=== PATIENT | male | born 1945 | race Caucasian/White ===

== ENCOUNTER 2019-11-20 10:46 | Inpatient (IN) | payer MEDICARE, OTHER, SELFPAY ==
[2019-11-20] VITALS (11 sets, daily range): BP systolic 80–129; BP diastolic 49–86; PULSE 70–130; RESP 16–27; TEMP 36.7–37.2; O2SAT 92–99; BMI 21.5
--- NOTE | 2019-11-20 11:20 | ED_ITS ---
HPI - SOB/Dyspnea General: Chief Complaint: Shortness of Breath/Dyspnea Stated Complaint: afib/sent from [facility] Time Seen by Provider: 11/20/19 10:59 History of Present Illness: HPI Narrative: 74-year-old male who is comes in his granddaughter to assist and he writes to communicate. He was seen earlier today at [facility] and found to be in A. fib with RVR this is evidently a new diagnosis for him they have not previously been told this he also has little bit of chest pressure accompanying he has no recent illnesses. He is not had any GI or symptoms no cough cold shortness of breath or fever. He has previously had multiple traumas and severely kyphotic. He has no current anticoagulation. He does have a severe mitral valve reflux but has not been pursuing surgical treatment they are afraid he would not tolerate the surgery. Associated symptoms: Deny abdominal pain, chest pain, fever(s), nausea, orthopnea or vomiting Review of Systems Const: Denies: fever(s), chills, body aches, change in appetite, fatigue or malaise ENMT: Denies: throat pain, ear or mastoid pain, nasal discharge or nasal congestion Card: Denies: chest pain, edema, dyspnea on exertion or orthopnea Resp: Denies: dyspnea, productive cough or non-productive cough GI: Denies: abdominal pain, nausea, vomiting, hematemesis, coffee ground emesis, diarrhea, constipation, bloating, hematochezia or melena : Denies: flank pain, dysuria, urinary frequency or urinary urgency Skin/Breast: Denies: rash or pruritus PFSH ED PFSH: Medical History (Updated 11/20/19 @ 15:45 by Juan Rice MD) CAD (coronary artery disease) History of CVA (cerebrovascular accident) Hypertension Mitral valve regurgitation Obstructive sleep apnea Pelvic fracture Pneumothorax Severe mitral regurgitation Thoracic spine fracture Surgical History (Updated 11/20/19 @ 15:44 by Juan Rice MD) History of back surgery Family History (Updated 11/20/19 @ 15:44 by Juan Rice MD) Other CAD (coronary artery disease) Social History Smoking and tobacco status: former smoker Physical Exam Const: COMMON NORMALS: no acute distress GENERAL APPEARANCE: cooperative and comfortable ORIENTATION/CONSCIOUSNESS: Yes awake, Yes oriented to person, Yes oriented to place and Yes oriented to time HENMT: COMMON NORMALS: normocephalic, atraumatic, external ears normal, EAC's normal, TM's normal bilaterally, Normal nasal mucous membranes and turbinates present, moist oral mucous membranes and oropharynx normal; hearing grossly not normal bilaterally HEAD & SCALP: normocephalic and atraumatic NOSE: Normal nasal mucous membranes and turbinates present EXTERNAL EAR: Yes external ears normal EXTERNAL AUDITORY CANAL: EAC's normal TYMPANIC MEMBRANE: TM's normal bilaterally Eye: COMMON NORMALS: Equal, round and reactive pupils present, EOMs intact bilaterally, conjunctivae normal and no scleral icterus CONJUNCTIVA: Yes conjunctivae normal PUPIL: Yes Equal, round and reactive pupils present Neck/C-Spine: COMMON NORMALS: full ROM, no lymphadenopathy and supple Lymph: LYMPHATIC: no lymphadenopathy noted and no lymphedema noted Resp: COMMON NORMALS: normal respiratory effort, No retractions, No use of accessory muscles and clear to auscultation bilaterally AUSCULTATION: clear to auscultation bilaterally Cardio: RATE: tachycardic RHYTHM: abnormal rhythm irregularly irregular OTHER: Grade 3/6 mitral regurg murmur heard at the left anterior axillary line GI: COMMON NORMALS: Soft to palpation and No hepatosplenomegaly present AUSCULTATION: Yes normoactive bowel sounds PALPATION: Yes Soft to palpation, No Tenderness to palpation present (GI), No Guarding due to palpation present (GI) and Yes No hepatosplenomegaly present Extremity: COMMON NORMALS: normal to inspection, capillary refill normal, no clubbing, cyanosis or edema, no calf tenderness and no pedal edema Neuro: SENSORIUM/ORIENTATION: Yes oriented to person, Yes oriented to place and Yes oriented to time Skin: COMMON NORMALS: no rashes or lesions noted GENERAL SKIN EXAM: no rashes or lesions noted Course Vital Signs: Vital signs: Vital Signs Temperature 97.9 F 11/21/19 10:44 Pulse Rate 108 H 11/21/19 10:44 Respiratory Rate 30 H 11/21/19 10:44 Blood Pressure 94/61 11/21/19 10:44 Pulse Oximetry 92 11/21/19 10:44 MDM - SOB/Dyspnea MDM Narrative: Medical decision making narrative: Patient has new A. fib with RVR previously undiagnosed. He is gotten his rate controlled with a bolus of Cardizem and a Cardizem drip will need to be admitted for evaluation consideration of anticoagulation and transition to oral rate control. Discussed Dr. Trinh he agrees we will go ahead and place him in CSU Lab Data: Labs: Lab Results 11/20/19 11/20/19 11/20/19 Range/Units 11:00 11:00 11:00 WBC 7.6 (4.0-10.0) 10^3/ uL RBC 4.03 L (4.1-5.3) 10^6/u L Hgb 12.7 (11.7-16.6) g/dL Hct 38.7 L (42.0-52.0) % MCV 96.0 H (80-94) fL MCH 31.5 (28.0-34.0) pg MCHC 32.8 (30.0-36.0) g/dL RDW 14.4 (12.1-15.1) % Plt Count 179 (130-400) 10^3/c mm MPV 11.3 H (7.4-10.4) fL Neut % (Auto) 78.6 % Lymph % (Auto) 11.0 % [place] % (Auto) 9.9 % Eos % (Auto) 0.1 % Baso % (Auto) 0.1 % Neut # (Auto) 6.0 (1.8-7.7) 10^3/u L Lymph # (Auto) 0.8 (0.8-4.8) 10^3/u L [place] # (Auto) 0.8 (0.2-0.9) 10^3/u L Eos # (Auto) 0.0 (0.0-0.8) 10^3/u L Baso # (Auto) 0.0 (0.0-0.1) 10^3/u L Nucleated RBC % (a uto) 0 % Nucleated RBCs # 0.0 /100WBC Sodium 132 L (136-145) mmol/L Potassium 4.6 (3.5-5.1) mmol/L Chloride 91 L (98-107) mmol/L Carbon Dioxide 27 (22-29) mmol/L Anion Gap 18.6 (5-19) BUN 10 (8-23) mg/dL Creatinine 0.6 L (0.7-1.2) mg/dL Glucose 170 H (65-115) mg/dL Estimat Average Gl ucose Hemoglobin A1c (4.0-6.0) % Calculated Osmolal ity 274 L (285-295) mOsm/k g Calcium 9.8 (8.5-10.5) mg/dL Total Bilirubin 0.5 (0.15-1.2) mg/dL AST 15 (0-40) U/L ALT 14 (0-41) U/L Alkaline Phosphata se 135 H (40-130) IU/L Troponin T Baselin e 18 H (0-15) ng/L Troponin T 120 Min [place] (0-15) ng/L Delta Troponin T (0-10) ABS# NT-Pro-B Natriuret Pep 3425 H (0-450) pg/mL Total Protein 6.7 (6.6-8.7) g/dL Albumin 4.1 (3.5-5.2) g/dL Globulin 2.6 (1.3-4.6) g/dL TSH (0.27-4.20) uIU/ mL Urine Color (Yellow) Urine Appearance (CLEAR) Urine pH (5-7) Ur Specific Gravit y (1.005-1.030) Urine Protein (Negative) Urine Glucose (UA) (Normal) Urine Ketones (Negative) Urine Blood (Negative) Urine Nitrate (Negative) Urine Bilirubin (NEGATIVE) Urine Urobilinogen (Negative) mg/dL Ur Leukocyte Heidy ase (Negative) 11/20/19 11/20/19 11/20/19 Range/Units 11:00 11:00 12:10 WBC (4.0-10.0) 10^3/ uL RBC (4.1-5.3) 10^6/u L Hgb (11.7-16.6) g/dL Hct (42.0-52.0) % MCV (80-94) fL MCH (28.0-34.0) pg MCHC (30.0-36.0) g/dL RDW (12.1-15.1) % Plt Count (130-400) 10^3/c mm MPV (7.4-10.4) fL Neut % (Auto) % Lymph % (Auto) % [place] % (Auto) % Eos % (Auto) % Baso % (Auto) % Neut # (Auto) (1.8-7.7) 10^3/u L Lymph # (Auto) (0.8-4.8) 10^3/u L [place] # (Auto) (0.2-0.9) 10^3/u L Eos # (Auto) (0.0-0.8) 10^3/u L Baso # (Auto) (0.0-0.1) 10^3/u L Nucleated RBC % (a uto) % Nucleated RBCs # /100WBC Sodium (136-145) mmol/L Potassium (3.5-5.1) mmol/L Chloride (98-107) mmol/L Carbon Dioxide (22-29) mmol/L Anion Gap (5-19) BUN (8-23) mg/dL Creatinine (0.7-1.2) mg/dL Glucose (65-115) mg/dL Estimat Average Gl ucose 126 Hemoglobin A1c 6.0 (4.0-6.0) % Calculated Osmolal ity (285-295) mOsm/k g Calcium (8.5-10.5) mg/dL Total Bilirubin (0.15-1.2) mg/dL AST (0-40) U/L ALT (0-41) U/L Alkaline Phosphata se (40-130) IU/L Troponin T Baselin e (0-15) ng/L Troponin T 120 Min [place] (0-15) ng/L Delta Troponin T (0-10) ABS# NT-Pro-B Natriuret Pep (0-450) pg/mL Total Protein (6.6-8.7) g/dL Albumin (3.5-5.2) g/dL Globulin (1.3-4.6) g/dL TSH 3.16 (0.27-4.20) uIU/ mL Urine Color Yellow (Yellow) Urine Appearance Clear (CLEAR) Urine pH 5 (5-7) Ur Specific Gravit y 1.015 (1.005-1.030) Urine Protein Neg (Negative) Urine Glucose (UA) Norm (Normal) Urine Ketones Negative (Negative) Urine Blood Neg (Negative) Urine Nitrate Negative (Negative) Urine Bilirubin Neg (NEGATIVE) Urine Urobilinogen 1 H (Negative) mg/dL Ur Leukocyte Heidy ase Negative (Negative) 11/20/19 Range/Units 13:03 WBC (4.0-10.0) 10^3/ uL RBC (4.1-5.3) 10^6/u L Hgb (11.7-16.6) g/dL Hct (42.0-52.0) % MCV (80-94) fL MCH (28.0-34.0) pg MCHC (30.0-36.0) g/dL RDW (12.1-15.1) % Plt Count (130-400) 10^3/c mm MPV (7.4-10.4) fL Neut % (Auto) % Lymph % (Auto) % [place] % (Auto) % Eos % (Auto) % Baso % (Auto) % Neut # (Auto) (1.8-7.7) 10^3/u L Lymph # (Auto) (0.8-4.8) 10^3/u L [place] # (Auto) (0.2-0.9) 10^3/u L Eos # (Auto) (0.0-0.8) 10^3/u L Baso # (Auto) (0.0-0.1) 10^3/u L Nucleated RBC % (a uto) % Nucleated RBCs # /100WBC Sodium (136-145) mmol/L Potassium (3.5-5.1) mmol/L Chloride (98-107) mmol/L Carbon Dioxide (22-29) mmol/L Anion Gap (5-19) BUN (8-23) mg/dL Creatinine (0.7-1.2) mg/dL Glucose (65-115) mg/dL Estimat Average Gl ucose Hemoglobin A1c (4.0-6.0) % Calculated Osmolal ity (285-295) mOsm/k g Calcium (8.5-10.5) mg/dL Total Bilirubin (0.15-1.2) mg/dL AST (0-40) U/L ALT (0-41) U/L Alkaline Phosphata se (40-130) IU/L Troponin T Baselin e (0-15) ng/L Troponin T 120 Min [place] 15.30 H (0-15) ng/L Delta Troponin T -2.70 L (0-10) ABS# NT-Pro-B Natriuret Pep (0-450) pg/mL Total Protein (6.6-8.7) g/dL Albumin (3.5-5.2) g/dL Globulin (1.3-4.6) g/dL TSH (0.27-4.20) uIU/ mL Urine Color (Yellow) Urine Appearance (CLEAR) Urine pH (5-7) Ur Specific Gravit y (1.005-1.030) Urine Protein (Negative) Urine Glucose (UA) (Normal) Urine Ketones (Negative) Urine Blood (Negative) Urine Nitrate (Negative) Urine Bilirubin (NEGATIVE) Urine Urobilinogen (Negative) mg/dL Ur Leukocyte Heidy ase (Negative) Discharge Plan Discharge Patient Disposition: Admitted As Inpatient Admit Provider: Juan Rice Discharge Date/Time: 11/20/19 15:27 Coding Level of Care Code ED [employer] Specialist for Chg Fwd Exam Comprehensive
--- NOTE | 2019-11-20 11:25 | XRR_ITS ---
PROCEDURE INFORMATION: Exam: XR Chest, 1 View Exam date and time: 11/20/2019 11:40 AM Age: 74 years old Clinical indication: Cough and dyspnea; Additional info: Dyspnea/cough TECHNIQUE: Imaging protocol: XR of the chest Views: 1 view. COMPARISON: No relevant prior studies available. FINDINGS: Lungs: No significant airspace disease. Pleural space: No significant pleural effusion. Heart/Mediastinum: Cardiomegaly. Vasculature: Ectasia of the thoracic aorta. Diaphragm: Asymmetric elevation of the right hemidiaphragm. Colonic interposition. Bones/joints: Severe osteopenia. Old left rib fractures. Incompletely visualized surgical hardware in the lumbar spine. Degenerative change. XR/XR chest 1V portable [id number] IMPRESSION: Cardiomegaly, without significant airspace or pleural disease.
--- NOTE | 2019-11-20 11:25 | ECG_ITS ---
Measurements Intervals [place] Rate: 138 P: LA: 0 QRS: -40 QRSD: 102 T: 46 QT: 292 QTc: 444 ATRIAL FIBRILLATION WITH RAPID VENTRICULAR RESPONSE LEFT AXIS DEVIATION [QRS AXIS < -30] PATTERN CONSISTENT WITH PULMONARY DISEASE MODERATE VOLTAGE CRITERIA FOR LVH, CONSIDER NORMAL VARIANT [MEETS CRITERIA IN ONE ONE OF: R(aVL), S(V1), R(V5), R(V5/V6)+S(V1)] NONSPECIFIC ST & T-WAVE ABNORMALITY Compared to ECG 06/09/2019 11:43:24 T-wave abnormality now present Sinus rhythm no longer present Electronically Signed On 11-20-2019 19:35:00 CDT by Charley Salazar M.D. [id number]
[2019-11-20 11:35] LABS: Basophils % 0.1 %; Eosinophils % 0.1 %; Hematocrit 38.7 % (42.0-52.0); Hemoglobin 12.7 g/dL (11.7-16.6); Lymphocytes # 0.8 10^3/uL (0.8-4.8); Mean Corpuscular HGB Conc 32.8 g/dL (30.0-36.0); Mean Corpuscular Hemoglobin 31.5 pg (28.0-34.0); Mean Platelet Volume 11.3 fL (7.4-10.4); Monocytes # 0.8 10^3/uL (0.2-0.9); Monocytes % 9.9 %; Neutrophils % 78.6 %; Nucleated Red Blood Cells % 0 %; Platelet Count 179 10^3/cmm (130-400); Red Blood Count 4.03 10^6/uL (4.1-5.3); Red Cell Distribution Width 14.4 % (12.1-15.1); White Blood Count 7.6 10^3/uL (4.0-10.0)
[2019-11-20 11:49] LABS: Troponin(5th) Baseline 18 ng/L (0-15)
[2019-11-20 11:58] LABS: Alanine Aminotransferase 14 U/L (0-41); Albumin Level 4.1 g/dL (3.5-5.2); Alkaline Phosphatase 135 IU/L (40-130); Anion Gap 18.6 (5-19); Aspartate Amino Transferase 15 U/L (0-40); Blood Urea Nitrogen 10 mg/dL (8-23); Calcium 9.8 mg/dL (8.5-10.5); Carbon Dioxide 27 mmol/L (22-29); Chloride 91 mmol/L (98-107); Globulin 2.6 g/dL (1.3-4.6); Glucose 170 mg/dL (65-115); NT Pro B Type Natriuretic Pept 3425 pg/mL (0-450); Osmolality Calculated 274 mOsm/kg (285-295); Potassium 4.6 mmol/L (3.5-5.1); Sodium 132 mmol/L (136-145); Total Bilirubin 0.5 mg/dL (0.15-1.2); Total Protein 6.7 g/dL (6.6-8.7)
[2019-11-20 12:35] LABS: Add Urine Microscopic? NO
[2019-11-20 12:38] LABS: Bilirubin Urine Neg (NEGATIVE); Blood Urine Neg (Negative); Glucose Urine UA Norm (Normal); Ketones Urine Negative (Negative); Leukocyte Esterase Urine Negative (Negative); Nitrate Urine Negative (Negative); Protein Urine Neg (Negative); Specific Gravity, Urine 1.015 (1.005-1.030); Urine Appearance Clear (CLEAR); Urine Color Yellow (Yellow); Urobilinogen Urine 1 mg/dL (Negative); pH Urine 5 (5-7)
--- NOTE | 2019-11-20 13:25 | ECG_ITS ---
Measurements Intervals [place] Rate: 104 P: SD: 0 QRS: -35 QRSD: 103 T: 11 QT: 351 QTc: 462 ATRIAL FIBRILLATION WITH RAPID VENTRICULAR RESPONSE LEFT AXIS DEVIATION [QRS AXIS < -30] MODERATE VOLTAGE CRITERIA FOR LVH, CONSIDER NORMAL VARIANT [MEETS CRITERIA IN ONE OF: R(aVL), S(V1), R(V5), R(V5/V6)+S(V1)] Compared to ECG 06/09/2019 11:43:24 Sinus rhythm no longer present Electronically Signed On 11-20-2019 19:37:35 CDT by Chalrey Salazar M.D. [id number]
--- NOTE | 2019-11-20 15:34 | PM.HP ---
Providers/Chief Complaint Admitting Physician: Juan Rice MD Primary Care Provider: Joss Huddleston MD Chief Complaint: afib/sent from [facility] History of Present Illness Parminder العراقي is a 74 year old male with a past medical history of deafness, severe mitral regurg, history of CVA, hypertension, CAD, hyperlipidemia, GERD, who presents to [facility] due to complaints of shortness of breath and chest pain, and was sent over from [facility] due to concerns for A. fib with RVR Due to severe deafness, communication was difficult, and was mostly obtained by using a drawing board, and obtained by granddaughter at bedside. According to granddaughter, [place], is fairly dependent on family for activities of daily living, needs assistance with activities of daily living, for the last few weeks patient has been feeling more short of breath, shortness of breath with exertio annual rest, and substernal chest pain. No bilateral lower extremity edema, no dizziness, no recent falls, according to granddaughter Dr. Salazar has ordered metoprolol 25 twice daily, but family had not given it to him as they were unsure of why he was now on this medication. Review of Systems Const: Denies: fever(s), chills, fatigue or malaise Eyes: Denies: change in vision or blurry vision ENMT: Denies: nasal congestion Card: Reports: chest pain and palpitations Resp: Reports: dyspnea; Denies: productive cough, non-productive cough or wheezing GI: Denies: abdominal pain, nausea, vomiting, hematemesis, diarrhea, constipation, hematochezia or melena : Denies: flank pain, difficulty urinating, dysuria or urinary frequency Musc: Denies: neck pain or back pain Skin/Breast: Denies: rash Neuro: Denies: headache(s), dizziness or vertigo Psych: Denies: anxiety or depression Endo: Denies: polyuria or polydipsia Medications/Allergies Home Medications Medication Instructions Recorded Confirmed Last Taken Type isosorbide mononitrate 10 mg tablet 10 mg PO BID 90 Days #180 tab 09/18/19 11/20/19 11/20/19 Rx metoprolol tartrate 25 mg tablet 25 mg PO BID 90 Days #180 tab 09/18/19 11/20/19 Unknown Rx aspirin 81 mg PO DAILY 11/20/19 11/20/19 11/20/19 History baclofen 10 mg PO TID PRN 11/20/19 11/20/19 11/20/19 History budesonide-formoterol [Symbicort] 2 puff INHALATION BID 11/20/19 11/20/19 11/20/19 History cetirizine 10 mg PO DAILY 11/20/19 11/20/19 11/20/19 History dicyclomine 20 mg PO QID 11/20/19 11/20/19 11/20/19 History diltiazem HCl 180 mg PO DAILY 11/20/19 11/20/19 11/20/19 History docusate sodium [Colace] 100 mg PO BID 11/20/19 11/20/19 11/20/19 History furosemide 40 mg PO DAILY 11/20/19 11/20/19 11/20/19 History gabapentin 300 mg PO BID 11/20/19 11/20/19 11/20/19 History hydromorphone 4 mg PO TID PRN 11/20/19 11/20/19 11/20/19 History linaclotide [Linzess] 145 mcg PO DAILY 11/20/19 11/20/19 11/20/19 History montelukast 10 mg PO DAILY 11/20/19 11/20/19 11/20/19 History pantoprazole 40 mg PO BID 11/20/19 11/20/19 11/20/19 History potassium chloride 20 meq PO DAILY 11/20/19 11/20/19 11/20/19 History pravastatin 80 mg PO DAILY 11/20/19 11/20/19 11/19/19 History sucralfate 1 g PO QID 11/20/19 11/20/19 11/20/19 History tamsulosin 0.8 mg PO DAILY 11/20/19 11/20/19 11/20/19 History trazodone 150 mg PO BEDTIME 11/20/19 11/20/19 11/19/19 History Allergies Allergy/AdvReac Type Severity Reaction Status Date / Time meperidine [From Demerol] Allergy Unknown Verified 11/20/19 10:56 PFSH Acute PFSH: Medical History (Updated 11/20/19 @ 15:45 by Juan Rice MD) CAD (coronary artery disease) History of CVA (cerebrovascular accident) Hypertension Mitral valve regurgitation Obstructive sleep apnea Pelvic fracture Pneumothorax Severe mitral regurgitation Thoracic spine fracture Surgical History (Updated 11/20/19 @ 15:44 by Juan Rice MD) History of back surgery Family History (Updated 11/20/19 @ 15:44 by Juan Rice MD) Other CAD (coronary artery disease) Social History Smoking and tobacco status: former smoker Vitals/I&O/Wt Last Vital Signs Temp 98.1 F 11/20/19 10:50 Pulse 89 11/20/19 15:26 Resp 16 11/20/19 15:26 BP 124/81 11/20/19 15:26 Pulse Ox 99 11/20/19 15:26 Weight last 48 hrs Weight 68.039 kg Physical Exam Const: COMMON NORMALS: no acute distress and patient oriented x3 GENERAL APPEARANCE: cooperative and comfortable HENMT: COMMON NORMALS: normocephalic HEAD & SCALP: normocephalic Eye: COMMON NORMALS: Equal, round and reactive pupils present and EOMs intact bilaterally GENERAL EYE: appearance normal, both eyes and all related structures Neck/C-Spine: COMMON NORMALS: full ROM, no lymphadenopathy and no JVD Lymph: LYMPHATIC: no lymphadenopathy noted Resp: COMMON NORMALS: normal respiratory effort, No retractions, No use of accessory muscles and clear to auscultation bilaterally AUSCULTATION: clear to auscultation bilaterally Cardio: COMMON NORMALS: no JVD, regular rate, S1 normal heart sound present, S2 normal heart sound present, No gallops present (Cardio), No clicks present (Cardio) and No murmurs present (Cardio) RATE: tachycardic RHYTHM: abnormal rhythm HEART SOUNDS: S1 normal heart sound present and S2 normal heart sound present GI: COMMON NORMALS: Normal to inspection, nondistended, normoactive bowel sounds present, Soft to palpation, non-tender and No hepatosplenomegaly present PALPATION: Yes Soft to palpation and Yes No hepatosplenomegaly present Extremity: COMMON NORMALS: normal to inspection, full ROM and no pedal edema Neuro: COMMON NORMALS: patient oriented x3, moves all extremities and no focal motor deficits Data : 11/20/19 11:00 11/20/19 11:00 A&P Assessment and plan (1) Atrial fibrillation with RVR: -Heart rates 130s to 140s on admission, on Cardizem drip, currently heart rate 90s to 100, atrial fibrillation, currently doing well -BNP 3000 -Troponin mildly elevated -Currently doing well, no chest pain, no shortness of breath Plan: -We will admit to CSU -Continue telemetry monitoring -Monitor troponins, monitor EKGs, monitor for chest pain -Stop Cardizem, transition to metoprolol 50 twice daily -Continue home diltiazem 180 mg p.o. daily -We will obtain a cardiac echocardiogram, TSH, magnesium -Start Eliquis 5 mg twice daily -Monitor hemoglobin closely Status: Acute (2) Hypertension: Status: Acute (3) Severe mitral regurgitation: Status: Acute (4) Obstructive sleep apnea: Status: Acute (5) History of CVA (cerebrovascular accident): Status: Acute (6) CAD (coronary artery disease): Status: Acute Attestations Medical Necessity Statement*: Requires hospitalization, outpatient with observation, for A. fib with RVR Coding Level of Care Code Acute Marker Hand for Chg Fwd Diagnoses Atrial fibrillation with RVR I48.91 Hypertension I10 Severe mitral regurgitation I34.0 Obstructive sleep apnea G47.33 History of CVA (cerebrovascular accident) Z86.73 CAD (coronary artery disease) I25.10
--- NOTE | 2019-11-20 16:37 | PC.NURSE ---
admitted into room 101 from er via stretcher.report received.pt is deaf.he reads lips and has erasable board with marker at bedside.pt reads very well.on cardizem drip at 10 mg/hr afib at rate of 90's- 110 on monitor.bp stable.denies pain at present.oriented to room environment.instructed to notify staff for any sob,pain..or for any concerns at all.pt verb understanding of instructions.
[2019-11-20 17:12] LABS: Estmated Average Glucose 126
[2019-11-20 17:34] LABS: Troponin 5 6HR 16.34 ng/L (0-15)
[2019-11-20 17:42] LABS: Troponin 5 6HR Delta -1.66 ng/L (0-12)
[2019-11-20 17:44] LABS: Thyroid Stimulating Hormone 3.16 uIU/mL (0.27-4.20)
[2019-11-20] MEDS: sucralfate 1 gm Tablet PO ×2 (18:18→21:51)
[2019-11-20] MEDS: docusate sodium 100 mg Capsule PO (18:18)
[2019-11-20] MEDS: gabapentin 300 mg Capsule PO (18:18)
[2019-11-20] MEDS: dicyclomine 20 mg Tablet PO ×2 (18:18→21:51)
[2019-11-20] MEDS: pantoprazole DR 40 mg Tablet PO (18:18)
[2019-11-20] MEDS: metoprolol tartrate 50 mg Tablet PO (18:19)
[2019-11-20] MEDS: isosorbide mononitrate 20 mg Tablet 10 MG PO (18:19)
[2019-11-20] MEDS: apixaban 5 mg Tablet PO (18:19)
[2019-11-20 19:33] LABS: Magnesium 1.9 mg/dL (1.7-2.3)
--- NOTE | 2019-11-20 20:21 | PC.NURSE ---
Entered pt's room to do shift assessment and VS. HR 60-70's. BP 80/49. Cardizem IV decreased to 5mg/hr. As I was assessing him his HR went down to 44. Cardizem turned off. Pt states he does not feel dizzy, lightheaded or bad in anyway, just tired. HR now 71. BP 90/60. Will continue to monitor closely.
--- NOTE | 2019-11-20 22:11 | PC.NURSE ---
Notified Dr. Jeffery of pt's ongoning hypotension. Orders received to hold hs dose of trazodone tonight.
[2019-11-21] VITALS (18 sets, daily range): BP systolic 85–134; BP diastolic 55–95; PULSE 74–109; RESP 14–31; TEMP 36.6–37.3; O2SAT 92–96
[2019-11-21 04:48] LABS: Basophils % 0.5 %; Eosinophils # 0.1 10^3/uL (0.0-0.8); Eosinophils % 1.7 %; Hematocrit 32.9 % (42.0-52.0); Hemoglobin 11.3 g/dL (11.7-16.6); Lymphocytes # 1.4 10^3/uL (0.8-4.8); Lymphocytes % 22.9 %; Mean Corpuscular HGB Conc 34.3 g/dL (30.0-36.0); Mean Corpuscular Hemoglobin 33.2 pg (28.0-34.0); Mean Corpuscular Volume 96.8 fL (80-94); Mean Platelet Volume 10.5 fL (7.4-10.4); Monocytes # 0.8 10^3/uL (0.2-0.9); Monocytes % 13.6 %; Neutrophils # 3.6 10^3/uL (1.8-7.7); Neutrophils % 60.8 %; Nucleated Red Blood Cells % 0 %; Platelet Count 154 10^3/cmm (130-400); Red Cell Distribution Width 14.4 % (12.1-15.1); White Blood Count 5.9 10^3/uL (4.0-10.0)
[2019-11-21 04:58] LABS: Partial Thromboplastin Time 35.7 SECONDS (23.9-36.7)
[2019-11-21 05:06] LABS: Alanine Aminotransferase 20 U/L (0-41); Albumin Level 3.5 g/dL (3.5-5.2); Alkaline Phosphatase 106 IU/L (40-130); Anion Gap 13.2 (5-19); Aspartate Amino Transferase 20 U/L (0-40); Blood Urea Nitrogen 9 mg/dL (8-23); Calcium 9.8 mg/dL (8.5-10.5); Carbon Dioxide 30 mmol/L (22-29); Chloride 96 mmol/L (98-107); Globulin 2.3 g/dL (1.3-4.6); Glucose 105 mg/dL (65-115); Osmolality Calculated 276 mOsm/kg (285-295); Potassium 4.2 mmol/L (3.5-5.1); Sodium 135 mmol/L (136-145); Total Bilirubin 0.6 mg/dL (0.15-1.2); Total Protein 5.8 g/dL (6.6-8.7)
[2019-11-21 05:09] LABS: INR 1.17 (0.8-1.2)
[2019-11-21 05:12] LABS: Chol HDL Ratio 2.24 mg/dL (1.0-5.00); Cholesterol 130 mg/dL (0-200); HDL Cholesterol 58 mg/dL (60-100); LDL Cholesterol Calculated 61 mg/dL (50-129); LDL HDL Ratio 1.05 RATIO (0.00-3.22); Magnesium 1.8 mg/dL (1.7-2.3); Phosphorus 3.5 mg/dL (2.5-4.5); Triglycerides 55 mg/dL (0-150)
--- NOTE | 2019-11-21 06:38 | PC.NURSE ---
Notified Dr. Jeffery of HR staying 105-120. BP 125/93. Orders received to give po cardizem early.
--- NOTE | 2019-11-21 07:00 | USCV_ITS ---
Parminder العراقي Age: 74 Gender: M : 1945 Exam Date: 11/21/2019 05:23 Ordering Phys: Juan Rice MD Technologist: Loan Maurer Exam Location: [facility] [place] Indication: SEVERE MR SOB AFIB BP: 188 / 81 HR: 109 Rhythm: Atrial fibrillation Technical Quality: Adequate MEASUREMENTS (Male / Female) Normal Values 2D ECHO LV Diastolic Diameter PLAX 4.3 cm 4.2 - 5.9 / 3.9 - 5.3 cm LV Systolic Diameter PLAX 3.1 cm LV Chamber Size 4.0 cm IVS Diastolic Thickness 1.2 cm 0.6 - 1.0 / 0.6 - 0.9 cm IVS Systolic Thickness 1.4 cm LVPW Diastolic Thickness 1.1 cm 0.6 - 1.0 / 0.6 - 0.9 cm LVPW Systolic Thickness 1.3 cm RV Chamber Size 3.6 cm LVOT Diameter 2.0 cm LV Ejection Fraction 2D Teich 54.1 % LV Ejection Fraction MOD 2C 58.5 % LV Ejection Fraction 2C AL 59.9 % LA Diameter 5.6 cm LA Width 4.9 cm LA Height 5.9 cm RA Width 4.0 cm RA Height 6.3 cm Aorta at Sinotubular Diameter 4.1 cm M-MODE LV Diastolic Diameter MM 6.9 cm 4.2 - 5.9 / 3.9 - 5.3 cm LV Systolic Diameter MM 5.2 cm LV Ejection Fraction MM Teich 47.0 % IVS Diastolic Thickness MM 1.2 cm 0.6 - 1.0 / 0.6 - 0.9 cm IVS Systolic Thickness MM 1.4 cm LVPW Diastolic Thickness MM 1.6 cm 0.6 - 1.0 / 0.6 - 0.9 cm LVPW Systolic Thickness MM 1.8 cm RV Diastolic Diameter MM 0.9 cm Aortic Annulus Diameter 3.3 cm LA Ao Ratio MM 1.7 MV E Point Septal Separation 1.0 cm DOPPLER AV Peak Velocity 225.0 cm/s LVOT Peak Velocity 80.0 cm/s AV Area Cont Eq vti 1.5 cm squared AV Area Cont Eq pk 1.2 cm squared MV Area PHT 3.1 cm squared MV E' Velocity 8.0 cm/s Mitral E to MV E' Ratio 18.1 Mitral E to LV E' Lateral Ratio 19.7 Mitral E to LV E' Septal Ratio 16.7 TR Peak Velocity 24.0 cm/s TR Peak Gradient 0.2 mmHg TR Mean Velocity 245.0 cm/s TR Mean Gradient 26.3 mmHg TR Velocity Time Integral 104.1 cm TV Peak E Velocity 61.0 cm/s Right Atrial Pressure 15.0 mmHg Pulmonary Artery Systolic Pressu 15.2 mmHg PV Peak Velocity 66.0 cm/s RV Acceleration Time 0.1 s RV Ejection Time 0.3 s RV AcT/ET 0.5 FINDINGS Left Ventricle Normal left ventricular size and systolic function, EF 64 %. No gross wall motion normalities noted Right Ventricle Normal right ventricular size and systolic function. Right Atrium Mildly increased right atrial size. Left Atrium Moderately increased left atrial size. Mitral Valve Thickened mitral valve. Moderate mitral annular calcification. Possibly severe mitral regurgitation Aortic Valve Thickened aortic valve. Tricuspid Valve [id number] tricuspid valve regurgitation. Pulmonic Valve Mild pulmonary valve regurgitation. Pericardium No pericardial effusion. Aorta Normal aortic annulus size. CONCLUSIONS Normal left ventricular size and systolic function, EF 64 %. No gross wall motion normalities noted. Possibly severe mitral regurgitation., Posteriorly directed mitral regurgitant jet Moderately increased left atrial size. Mildly increased right atrial size. Thickened mitral valve. Features of aortic valve sclerosis Moderate mitral annular calcification. There is no pericardial effusion. There are no intracardiac masses. Estimated pulmonary artery peak systolic pressure within normal limits Compared to the study from 12/06/2017, there may not be a significant change Dr Charley Salazar MD [facility] (Electronically Signed) Final Date: 21 November 2019 16:01 S
[2019-11-21] MEDS: dilTIAZem ER (24HR) 180 mg Capsule PO (07:10)
[2019-11-21] MEDS: FUROsemide 10 mg/mL SDV 4mL 40 MG IVP ×2 (08:36→20:22)
[2019-11-21] MEDS: potassium chloride ER 10 mEq Tablet 40 MEQ PO (08:36)
[2019-11-21] MEDS: montelukast sodium 10 mg Tablet PO (08:37)
[2019-11-21] MEDS: isosorbide mononitrate 20 mg Tablet 10 MG PO ×2 (08:37→17:18)
[2019-11-21] MEDS: aspirin 81 mg Chew Tablet PO (08:38)
[2019-11-21] MEDS: atorvastatin 40 mg Tablet 20 MG PO (08:38)
[2019-11-21] MEDS: dicyclomine 20 mg Tablet PO ×4 (08:38→20:22)
[2019-11-21] MEDS: tamsulosin 0.4 mg Capsule 0.8 MG PO (08:39)
[2019-11-21] MEDS: pantoprazole DR 40 mg Tablet PO ×2 (08:39→17:19)
[2019-11-21] MEDS: apixaban 5 mg Tablet PO ×2 (08:39→17:19)
[2019-11-21] MEDS: docusate sodium 100 mg Capsule PO (08:39)
[2019-11-21] MEDS: gabapentin 300 mg Capsule PO ×2 (08:39→17:21)
[2019-11-21] MEDS: metoprolol tartrate 50 mg Tablet PO ×2 (08:40→17:20)
[2019-11-21] MEDS: sucralfate 1 gm Tablet PO ×4 (08:41→20:22)
--- NOTE | 2019-11-21 09:35 | PC.CHAP ---
Pastoral Care Encounter/Spiritual Assessment Type of Contact [] Declined heel cutter visit [] Patient/Family/Request visit [] Outpatient visit [] Follow-up visit [] Physician referral [] Code/Alert [x] Routine visit [] Staff referral [] Actively dying [] Patient sleeping [] Family support [] [] Out of room [] Palliative care [] [] Receiving care in room [] Pre-surgical visit [] Trauma [] Long length of stay [] ICU visit [] Other: Relational/Emotional Strength [] Patient feels connected with others/family/visitors/staff [] Distress [] Loneliness/isolation [] Abandonment Spirituality of Patient [] Person of Salud [] Attends Evangelical of their Salud [] Believes in Prayer [] Reads Bible or Jainism materials [] There are Spiritual issues to be addressed Conditioner Tumbler Interventions [x] Prayer [] Active listening [] Non-anxious presence [] Spiritual/emotional support [] Crisis/trauma care [] Spiritual counseling [] Bereavement support [] Provided bereavement packet [] Provided Bible/devotional materials [] Provided toy/stuffed animal, coloring book to patient or family member [] Provided Communion [] Anointing/[place] [] Salvation [x] Completed spiritual assessment [] Other: Impact on Illness or Injury [] Angry [] Fearful [] Anxious [] Often cries [] Exhaustion [] Unable to work [] Unable to attend rastafarian [] Unable to walk/stand [] Unable to read [] Unable to drive [] Unable to eat/drink [] Unable to sleep [] Unable to be with family [] Patient intubated [] Other: Summary Patient unable to communicate. Patient had an eraser board for me. Time spent with patient 10 min
--- NOTE | 2019-11-21 12:26 | P.PN_ITS ---
Subjective Subjective: Interval history: This morning patient has complaints of shortness of breath, mild chest tightness, no fevers, no cough, feels like he is getting a little bit better, last night had one hypotensive episode which nurses thought it secondary to Cardizem, after Cardizem was stopped blood pressure improved, overnight his heart rates have been as high as 140s, he is now requiring 2 L nasal cannula, has crackles on bilateral lung silver Vitals/I&O/Wt Last Vital Signs Temp 97.9 F 11/21/19 10:44 Pulse 108 H 11/21/19 10:44 Resp 30 H 11/21/19 10:44 BP 100/62 11/21/19 11:55 Pulse Ox 92 11/21/19 10:44 11/20/19 11/21/19 11/21/19 22:59 06:59 14:59 Intake Total 327 / 327 400 / 727 480 / 480 Output Total 100 / 100 500 / 600 1700 / 1700 Balance 227 / 227 -100 / 127 -1220 / -1220 Weight last 48 hrs Weight 68.039 kg Physical Exam Const: COMMON NORMALS: no acute distress GENERAL APPEARANCE: cooperative and comfortable HENMT: COMMON NORMALS: normocephalic HEAD & SCALP: normocephalic Neck/C-Spine: COMMON NORMALS: no JVD Resp: COMMON NORMALS: normal respiratory effort, No retractions and No use of accessory muscles AUSCULTATION: crackles Cardio: COMMON NORMALS: no JVD, regular rate, regular rhythm, S1 normal heart sound present, S2 normal heart sound present, No gallops present (Cardio), No clicks present (Cardio) and No murmurs present (Cardio) RATE: regular rate RHYTHM: regular rhythm HEART SOUNDS: S1 normal heart sound present and S2 normal heart sound present GI: COMMON NORMALS: Normal to inspection, nondistended, normoactive bowel sounds present, Soft to palpation, non-tender and No hepatosplenomegaly present PALPATION: Yes Soft to palpation and Yes No hepatosplenomegaly present Extremity: COMMON NORMALS: normal to inspection, full ROM and no pedal edema Data : 11/21/19 04:30 11/21/19 04:30 A&P Assessment and plan (1) Acute respiratory failure with hypoxia: -Secondary to atrial fibrillation, mitral regurg, heart failure -Continue Lasix 40 mg IV twice daily, oxygen therapy, strict I's and O's, fluid restrictions to 1500 cc Status: Acute (2) Atrial fibrillation with RVR: -Heart rates 130s to 140s on admission, on Cardizem drip, currently heart rate 90s to 100, atrial fibrillation, currently doing well -BNP 3000 -Troponin mildly elevated -Currently doing well, no chest pain, no shortness of breath Plan: -We will admit to CSU -Continue telemetry monitoring -Monitor troponins, monitor EKGs, monitor for chest pain - metoprolol 50 twice daily -Continue home diltiazem 180 mg p.o. daily -We will obtain a cardiac echocardiogram -Start Eliquis 5 mg twice daily -Monitor hemoglobin closely Status: Acute (3) Hypertension: Status: Acute (4) Severe mitral regurgitation: Status: Acute (5) Obstructive sleep apnea: Status: Acute (6) History of CVA (cerebrovascular accident): Status: Acute (7) CAD (coronary artery disease): Status: Acute Attestations Medical Necessity Statement*: Patient requires continued hospitalization, inpatient, for acute respiratory failure with hypoxia, atrial fibrillation Coding Level of Care Code Acute Television Repairer for [facility] Fwd Diagnoses Acute respiratory failure with hypoxia J96.01 Atrial fibrillation with RVR I48.91 Hypertension I10 Severe mitral regurgitation I34.0 Obstructive sleep apnea G47.33 History of CVA (cerebrovascular accident) Z86.73 CAD (coronary artery disease) I25.10
--- NOTE | 2019-11-21 16:30 | PC.OT ---
HOLD OT EVALUATION DUE TO HR IN 100s. WILL ATTEMPT AGAIN TOMORROW.
--- NOTE | 2019-11-21 18:21 | PC.NURSE ---
heart rate has improved slowly through shift.currently in 90's (afib).diuresed very well after 40 mg lasix given iv push earlier in shift.communicates well with writing board.
--- NOTE | 2019-11-21 19:18 | PC.NURSE ---
Received report from LOBO Perry. Patient is deaf and uses a white board for communication. Patient is able to read and write. Patient resting in bed. Patient has BLE scd's in place that are on and working. Performed assessment as documented. Informed patient of medication administration timing. Patient expressed understanding of plan.
[2019-11-21] MEDS: trazodone 150 mg Tablet PO (20:22)
--- NOTE | 2019-11-21 20:28 | PC.NURSE ---
Discussed medication with patient using white board. Patient verbalized understanding.
--- NOTE | 2019-11-21 20:56 | PC.NURSE ---
Patient had a bowel movement in bedside commode. Patient's brief was dirty. Nurse showed patient dirty brief. Patient stated oh that's okay. Nurse was able to get patient to let her change his brief. Patient's sweat pants smelled dirty. Patient insisted on having his sweat pants put back on. Will continue to offer bed bath and new pants.
--- NOTE | 2019-11-21 22:15 | PC.NURSE ---
Patient resting in bed. Even, non-labored respirations noted. No distress observed.
[2019-11-22] VITALS (14 sets, daily range): BP systolic 78–107; BP diastolic 48–70; PULSE 77–126; RESP 7–31; TEMP 36.4–37.1; O2SAT 93–98
[2019-11-22 05:17] LABS: Basophils % 0.3 %; Eosinophils # 0.1 10^3/uL (0.0-0.8); Eosinophils % 1.4 %; Hematocrit 35.3 % (42.0-52.0); Hemoglobin 11.6 g/dL (11.7-16.6); Lymphocytes # 1.5 10^3/uL (0.8-4.8); Lymphocytes % 22.7 %; Mean Corpuscular HGB Conc 32.9 g/dL (30.0-36.0); Mean Corpuscular Hemoglobin 32.2 pg (28.0-34.0); Mean Corpuscular Volume 98.1 fL (80-94); Mean Platelet Volume 11.1 fL (7.4-10.4); Monocytes # 0.8 10^3/uL (0.2-0.9); Neutrophils # 4.1 10^3/uL (1.8-7.7); Neutrophils % 63.1 %; Nucleated Red Blood Cells % 0 %; Platelet Count 164 10^3/cmm (130-400); Red Cell Distribution Width 14.6 % (12.1-15.1); White Blood Count 6.5 10^3/uL (4.0-10.0)
[2019-11-22 05:29] LABS: Magnesium 1.9 mg/dL (1.7-2.3)
[2019-11-22 05:30] LABS: Alanine Aminotransferase 30 U/L (0-41); Albumin Level 3.4 g/dL (3.5-5.2); Alkaline Phosphatase 102 IU/L (40-130); Anion Gap 14.5 (5-19); Aspartate Amino Transferase 22 U/L (0-40); Blood Urea Nitrogen 14 mg/dL (8-23); Calcium 9.1 mg/dL (8.5-10.5); Carbon Dioxide 31 mmol/L (22-29); Chloride 98 mmol/L (98-107); Globulin 2.3 g/dL (1.3-4.6); Glucose 101 mg/dL (65-115); Osmolality Calculated 286 mOsm/kg (285-295); Potassium 3.5 mmol/L (3.5-5.1); Sodium 140 mmol/L (136-145); Total Bilirubin 0.4 mg/dL (0.15-1.2); Total Protein 5.7 g/dL (6.6-8.7)
[2019-11-22] MEDS: apixaban 5 mg Tablet PO ×2 (08:45→18:22)
[2019-11-22] MEDS: isosorbide mononitrate 20 mg Tablet 10 MG PO ×2 (08:45→18:22)
[2019-11-22] MEDS: pantoprazole DR 40 mg Tablet PO ×2 (08:46→18:23)
[2019-11-22] MEDS: dilTIAZem ER (24HR) 180 mg Capsule PO (08:46)
[2019-11-22] MEDS: gabapentin 300 mg Capsule PO ×2 (08:48→18:22)
[2019-11-22] MEDS: aspirin 81 mg Chew Tablet PO (08:48)
[2019-11-22] MEDS: metoprolol tartrate 50 mg Tablet PO (08:48)
[2019-11-22] MEDS: montelukast sodium 10 mg Tablet PO (08:49)
[2019-11-22] MEDS: atorvastatin 40 mg Tablet 20 MG PO (08:49)
[2019-11-22] MEDS: sucralfate 1 gm Tablet PO ×4 (08:49→22:49)
[2019-11-22] MEDS: docusate sodium 100 mg Capsule PO ×2 (08:49→18:22)
[2019-11-22] MEDS: potassium chloride ER 10 mEq Tablet 40 MEQ PO (08:53)
[2019-11-22] MEDS: tamsulosin 0.4 mg Capsule 0.8 MG PO (08:54)
[2019-11-22] MEDS: FUROsemide 10 mg/mL SDV 4mL 40 MG IVP ×2 (08:55→22:49)
[2019-11-22] MEDS: dicyclomine 20 mg Tablet PO ×4 (09:08→22:50)
[2019-11-22] MEDS: amiodarone 200 mg Tablet 400 MG PO (13:44)
--- NOTE | 2019-11-22 15:40 | PM.PN ---
Subjective Subjective: Interval history: This morning patient tells me that his breathing is much better, is not having chest pain, has intermittent episodes of palpitations, has had low blood pressures overnight, no lightheadedness, no dizziness, no nausea, no vomiting Vitals/I&O/Wt Last Vital Signs Temp 97.7 F 11/22/19 14:51 Pulse 98 11/22/19 14:51 Resp 18 11/22/19 14:51 BP 93/62 11/22/19 14:51 Pulse Ox 93 11/22/19 14:51 11/22/19 11/22/19 11/22/19 06:59 14:59 22:59 Intake Total 100 / 1300 1480 / 1480 Output Total 600 / 3750 400 / 400 Balance -500 / -2450 1080 / 1080 Physical Exam Const: COMMON NORMALS: no acute distress and patient oriented x3 HENMT: COMMON NORMALS: normocephalic HEAD & SCALP: normocephalic Neck/C-Spine: COMMON NORMALS: no JVD Resp: COMMON NORMALS: normal respiratory effort, No retractions, No use of accessory muscles and clear to auscultation bilaterally AUSCULTATION: clear to auscultation bilaterally Cardio: COMMON NORMALS: no JVD, S1 normal heart sound present and S2 normal heart sound present RHYTHM: abnormal rhythm HEART SOUNDS: S1 normal heart sound present and S2 normal heart sound present GI: COMMON NORMALS: Normal to inspection, nondistended, normoactive bowel sounds present, Soft to palpation, non-tender, No hepatosplenomegaly present, no masses and no bruits PALPATION: Yes Soft to palpation and Yes No hepatosplenomegaly present Extremity: COMMON NORMALS: capillary refill normal, no clubbing, cyanosis or edema, no calf tenderness and no pedal edema Neuro: COMMON NORMALS: patient oriented x3 Psych: COMMON NORMALS: mental status grossly normal Data : 11/22/19 04:50 11/22/19 04:50 A&P Assessment and plan (1) Acute respiratory failure with hypoxia: -Secondary to atrial fibrillation, mitral regurg, heart failure --1243 cc since admission -Continue Lasix 40 mg IV twice daily, oxygen therapy, strict I's and O's, fluid restrictions to 1500 cc Status: Acute (2) Atrial fibrillation with RVR: -Heart rates 130s to 140s on admission, on Cardizem drip, currently heart rate 90s to 100, atrial fibrillation, currently doing well -BNP 3000 -Troponin mildly elevated -Currently doing well, no chest pain, no shortness of breath Plan: -We will admit to CSU -Continue telemetry monitoring -Monitor troponins, monitor EKGs, monitor for chest pain -Patient has hypotensive episodes with Toprol, will switch to amiodarone after discussing with cardiology -Continue home diltiazem 180 mg p.o. daily -We will obtain a cardiac echocardiogram -Start Eliquis 5 mg twice daily -Monitor hemoglobin closely Status: Acute (3) Hypertension: Status: Acute (4) Severe mitral regurgitation: Repeat echocardiogram showed EF of 64%, possibly severe mitral regurg, posteriorly directed mitral regurgitant jet -Patient and family do not want surgical interventions -Likely this is complaining a component to his left atrial dilatation, shortness of breath -Continue to monitor Status: Acute (5) Obstructive sleep apnea: Status: Acute (6) History of CVA (cerebrovascular accident): Status: Acute (7) CAD (coronary artery disease): Status: Acute Attestations Medical Necessity Statement*: Patient requires continued hospitalization for acute respiratory failure, A. fib Coding Level of Care Code Acute Title Curator for [facility] Fwd Diagnoses Acute respiratory failure with hypoxia J96.01 Atrial fibrillation with RVR I48.91 Hypertension I10 Severe mitral regurgitation I34.0 Obstructive sleep apnea G47.33 History of CVA (cerebrovascular accident) Z86.73 CAD (coronary artery disease) I25.10
--- NOTE | 2019-11-22 20:02 | PC.NURSE ---
Received report from LOBO Gaspar. Patient resting in bed. Assessment completed as documented. Denies needs or discomforts. No distress observed.
[2019-11-22] MEDS: trazodone 150 mg Tablet PO (22:50)
[2019-11-23] VITALS (11 sets, daily range): BP systolic 80–109; BP diastolic 43–77; PULSE 99–115; RESP 16–22; TEMP 36.6–37; O2SAT 92–97
[2019-11-23 05:19] LABS: Basophils % 0.2 %; Eosinophils # 0.1 10^3/uL (0.0-0.8); Eosinophils % 1.1 %; Hematocrit 35.1 % (42.0-52.0); Hemoglobin 11.7 g/dL (11.7-16.6); Lymphocytes % 21.6 %; Mean Corpuscular HGB Conc 33.3 g/dL (30.0-36.0); Mean Corpuscular Volume 95.9 fL (80-94); Monocytes # 0.9 10^3/uL (0.2-0.9); Monocytes % 10.1 %; Neutrophils # 6.1 10^3/uL (1.8-7.7); Neutrophils % 66.8 %; Nucleated Red Blood Cells % 0 %; Platelet Count 169 10^3/cmm (130-400); Red Blood Count 3.66 10^6/uL (4.1-5.3); Red Cell Distribution Width 14.4 % (12.1-15.1); White Blood Count 9.1 10^3/uL (4.0-10.0)
[2019-11-23 05:42] LABS: Magnesium 1.9 mg/dL (1.7-2.3); Phosphorus 3.5 mg/dL (2.5-4.5)
[2019-11-23 05:51] LABS: Alanine Aminotransferase 30 U/L (0-41); Albumin Level 3.5 g/dL (3.5-5.2); Alkaline Phosphatase 104 IU/L (40-130); Anion Gap 16.5 (5-19); Aspartate Amino Transferase 19 U/L (0-40); Blood Urea Nitrogen 16 mg/dL (8-23); Calcium 8.9 mg/dL (8.5-10.5); Carbon Dioxide 29 mmol/L (22-29); Chloride 98 mmol/L (98-107); Glucose 83 mg/dL (65-115); Osmolality Calculated 285 mOsm/kg (285-295); Potassium 3.5 mmol/L (3.5-5.1); Sodium 140 mmol/L (136-145); Total Bilirubin 0.4 mg/dL (0.15-1.2); Total Protein 5.5 g/dL (6.6-8.7)
--- NOTE | 2019-11-23 09:08 | PM.CONSULT ---
Providers/Reason For Consult Consulting Physican/Specialty*: Dr CULLEN Salazar/cardiology Reason for Consult*: Patient with a severe mitral irritation, is admitted with congestive heart failure and atrial fibrillation. The atrial fibrillation remains uncontrolled Attending Physician: Juan Rice MD Primary Care Provider: Joss Huddleston MD History of Present Illness History of Present Illness Parminder العراقي is a 74 year old male with a history of's mitral valve prolapse, severe mitral regurgitation and chronic diastolic heart failure is admitted to hospital with complaints of increasing shortness of breath and some chest discomfort. Patient is a very poor historian and. Communication is mainly through writing. According the patient, he was mainly concerned about her shortness of breath which is somewhat chronic but was getting worse over the last 1 week. He did not have a fever, chills or cough. He also had some chest discomfort but not bad. He has some chronic pains in the hip and lower back. He was taking hydromorphone at home for the pain. He has severe's kyphoscoliosis. He had a cardiac authorization many years ago and was found to have mild coronary artery disease. He has no history for any myocardial infarction. Because of his severe kyphoscoliosis, percutaneous valve intervention or open heart surgery are technically challenging. Discussing the risk and benefits, in detail with the patient and his family, it was decided to continue the medical treatment. He has no history for atrial fibrillation prior to the hospital admission. Review of Systems Narrative: CONSTITUTIONAL: No fever or chills. Has been feeling tired and weak for the last few days EYES: No blurring of vision or other visual disturbances lately. ENT: No hoarseness of voice, auditory disturbances or sore throat. CARDIOVASCULAR: As mentioned above. RESPIRATORY: Has been having shortness of breath for a week or so which is improving since the hospital admission. GASTROINTESTINAL: No hematemesis or melena. GENITOURINARY: No dysuria or hematuria. INTEGUMENTARY: No skin rashes or history of skin cancer. NEURO: No transient ischemic attacks or amaurosis. PSYCHIATRIC: No history of psychosis or major depression. HEMATOLOGIC: No bleeding disorders or significant anemia. ENDOCRINE: No history of polyuria or polydipsia. MUSCULOSKELETAL: He has aches and pains all over the body more so in the hip and in the lower back ALLERGY/IMMUNOLOGY: As mentioned above. Meds/Allergies Home Medications and Allergies Home Medications Medication Instructions Recorded Confirmed Last Taken Type isosorbide mononitrate 10 mg tablet 10 mg PO BID 90 Days #180 tab 09/18/19 11/20/19 11/20/19 Rx metoprolol tartrate 25 mg tablet 25 mg PO BID 90 Days #180 tab 09/18/19 11/20/19 Unknown Rx aspirin 81 mg PO DAILY 11/20/19 11/20/19 11/20/19 History baclofen 10 mg PO TID PRN 11/20/19 11/20/19 11/20/19 History budesonide-formoterol [Symbicort] 2 puff INHALATION BID 11/20/19 11/20/19 11/20/19 History cetirizine 10 mg PO DAILY 11/20/19 11/20/19 11/20/19 History dicyclomine 20 mg PO QID 11/20/19 11/20/19 11/20/19 History diltiazem HCl 180 mg PO DAILY 11/20/19 11/20/19 11/20/19 History docusate sodium [Colace] 100 mg PO BID 11/20/19 11/20/19 11/20/19 History furosemide 40 mg PO DAILY 11/20/19 11/20/19 11/20/19 History gabapentin 300 mg PO BID 11/20/19 11/20/19 11/20/19 History hydromorphone 4 mg PO TID PRN 11/20/19 11/20/19 11/20/19 History linaclotide [Linzess] 145 mcg PO DAILY 11/20/19 11/20/19 11/20/19 History montelukast 10 mg PO DAILY 11/20/19 11/20/19 11/20/19 History pantoprazole 40 mg PO BID 11/20/19 11/20/19 11/20/19 History potassium chloride 20 meq PO DAILY 11/20/19 11/20/19 11/20/19 History pravastatin 80 mg PO DAILY 11/20/19 11/20/19 11/19/19 History sucralfate 1 g PO QID 11/20/19 11/20/19 11/20/19 History tamsulosin 0.8 mg PO DAILY 11/20/19 11/20/19 11/20/19 History trazodone 150 mg PO BEDTIME 11/20/19 11/20/19 11/19/19 History Allergies Allergy/AdvReac Type Severity Reaction Status Date / Time meperidine [From Demerol] Allergy Unknown Verified 11/20/19 10:56 Current Medications Current Medications Generic Name Dose Route Start Last Admin Trade Name Freq PRN Reason Stop Dose Admin Amiodarone HCl 400 mg 11/22/19 13:20 11/22/19 13:44 Cordarone PO 400 mg DAILY LORNA Administration Apixaban 5 mg 11/20/19 18:00 11/22/19 18:22 Eliquis PO 5 mg BID LORNA Administration Aspirin 81 mg 11/21/19 09:00 11/22/19 08:48 Aspirin Chewable PO 81 mg DAILY LORNA Administration Atorvastatin Calcium 20 mg 11/21/19 09:00 11/22/19 08:49 Lipitor PO 20 mg DAILY LORNA Administration Dicyclomine HCl 20 mg 11/20/19 17:00 11/22/19 22:50 Bentyl PO 20 mg QID LORNA Administration Diltiazem HCl 180 mg 11/21/19 09:00 11/22/19 08:46 Cardizem Cd (24hr) PO 180 mg DAILY LORNA Administration Docusate Sodium 100 mg 11/20/19 18:00 11/22/19 18:22 Colace PO 100 mg BID LORNA Administration Gabapentin 300 mg 11/20/19 18:00 11/22/19 18:22 Neurontin PO 300 mg BID LORNA Administration Isosorbide Mononitrate 10 mg 11/20/19 18:00 11/22/19 18:22 Ismo PO 10 mg BID LORNA Administration Montelukast Sodium 10 mg 11/21/19 09:00 11/22/19 08:49 Singulair PO 10 mg DAILY LRONA Administration Non-Formulary Medication 145 mcg 11/21/19 09:00 11/22/19 08:57 Linaclotide [Linzess] PO Not Given DAILY LORNA Pantoprazole Sodium 40 mg 11/20/19 18:00 11/22/19 18:23 Protonix PO 40 mg BID LORNA Administration Potassium Chloride 40 meq 11/21/19 09:00 11/22/19 08:53 Klor-Con 10 PO 40 meq DAILY LORNA Administration Fluticasone/Salmeterol 1 puff 11/20/19 20:00 11/23/19 08:52 Advair Diskus 500-50 INHALATION 1 puff BID.RESPIRATORY LORNA Administration Sucralfate 1 gm 11/20/19 17:00 11/22/19 22:49 Carafate PO 1 gm QID LORNA Administration Tamsulosin HCl 0.8 mg 11/21/19 09:00 11/22/19 08:54 Flomax PO 0.8 mg DAILY LORNA Administration Trazodone HCl 150 mg 11/20/19 21:00 11/22/19 22:50 Desyrel PO 150 mg BEDTIME LORNA Administration PFSH Acute PFSH: Medical History (Updated 11/23/19 @ 10:42 by Charley Salazar MD) CAD (coronary artery disease) History of CVA (cerebrovascular accident) Hypertension Mitral valve regurgitation Obstructive sleep apnea Pelvic fracture Pneumothorax Severe mitral regurgitation Thoracic spine fracture Surgical History (Updated 11/20/19 @ 15:44 by Juan Rice MD) History of back surgery Family History (Updated 11/20/19 @ 15:44 by Juan Rice MD) Other CAD (coronary artery disease) Social History Smoking and tobacco status: former smoker Vitals/I&O/Wt Last Vital Signs Temp 98 F 11/23/19 04:00 Pulse 99 11/23/19 08:54 Resp 18 11/23/19 08:54 BP 95/65 11/23/19 04:00 Pulse Ox 97 11/23/19 08:54 11/22/19 11/23/19 11/23/19 22:59 06:59 14:59 Intake Total 120 / 1600 200 / 1800 Output Total 510 / 910 1900 / 2810 Balance -390 / 690 -1700 / -1010 Physical Exam Narrative: EXAM NARRATIVE: GENERAL: The patient is alert and oriented times three. Not in any acute distress. HEENT: Has minimal pallor. No icterus or lymphadenopathy. The pupils are reactant to light. Oral cavity: There are no mucous membrane lesions. Funduscopic the fundus is not visualized NECK: Trachea appears to be central. No masses noted. No JVD or thyromegaly appreciated. No carotid bruit. RESPIRATORY: Chest is symmetrical. No intercostals muscle retraction or any accessory muscle activation. There is no chest wall tenderness. Breath sounds are heard bilaterally. No rales or rhonchi heard. No evidence of any consolidation. BREASTS: Deferred. HEART: The PMI is in the 5th left intercostals space just in the midclavicular line. No palpable precordial events. The first heart sound is variable. Second heart rate is normal. No S3. Pansystolic murmur of a grade 4/6 in the mitral area. No diastolic murmurs. No pericardial rub. ABDOMEN: No vessel pulsations or distention. No tenderness. No organomegaly appreciated. No abdominal bruit. Bowel sounds are normally heard. : Deferred. RECTAL: Deferred. LYMPHATIC: No lymphadenopathy noted in the neck or groin. EXTREMITIES: No edema or cyanosis. No clubbing. The pulses are palpable but weak bilaterally. MUSCULOSKELETAL: Patient has severe kyphoscoliosis. SKIN: There are no significant scars or skin rash noted. NEUROPSYCHIATRIC: The patient is alert and oriented x3. The higher functions are grossly within normal limits. No tremors or rigidity noted. Data Labs: Other Labs: Laboratory Results - last 24 hr 11/23/19 11/23/19 11/23/19 03:58 03:58 03:58 WBC 9.1 RBC 3.66 L Hgb 11.7 Hct 35.1 L MCV 95.9 H MCH 32.0 MCHC 33.3 RDW 14.4 Plt Count 169 MPV 11.0 H Neut % (Auto) 66.8 Lymph % (Auto) 21.6 [place] % (Auto) 10.1 Eos % (Auto) 1.1 Baso % (Auto) 0.2 Neut # (Auto) 6.1 Lymph # (Auto) 2.0 [place] # (Auto) 0.9 Eos # (Auto) 0.1 Baso # (Auto) 0.0 Nucleated RBC % (a uto) 0 Nucleated RBCs # 0.0 Sodium 140 Potassium 3.5 Chloride 98 Carbon Dioxide 29 Anion Gap 16.5 BUN 16 Creatinine 0.7 Glucose 83 Calculated Osmolal ity 285 Calcium 8.9 Phosphorus 3.5 Magnesium 1.9 Total Bilirubin 0.4 AST 19 ALT 30 Alkaline Phosphata se 104 Total Protein 5.5 L Albumin 3.5 Globulin 2.0 Imaging^: Echo: My impression: Echocardiogram done on 11/21/2019 revealed Normal left ventricular size and systolic function, EF 64 %. No gross wall motion normalities noted. Possibly severe mitral regurgitation., Posteriorly directed mitral regurgitant jet Moderately increased left atrial size. Mildly increased right atrial size. Thickened mitral valve. Features of aortic valve sclerosis Moderate mitral annular calcification. There is no pericardial effusion. There are no intracardiac masses. Estimated pulmonary artery peak systolic pressure within normal limits Compared to the study from 12/06/2017, there may not be a significant change CXR: My impression: Moderate cardiomegaly. Tortuous thoracic aorta with some calcification. Prominent pulmonary vascular markings. No acute lung infiltrate. EKG^: EKG 1: My Interpretation: The EKG showed atrial fibrillation with rapid ventricular rate. Left axis deviation. Features of LVH. Some nonspecific ST-T changes. A&P Assessment and plan (1) Atrial fibrillation with RVR: The atrial fibrillation, could be related to severe mitral regurgitation and diastolic heart failure. The heart rate is remaining uncontrolled. Because of the relatively low blood pressure, it may be appropriate to try him on digoxin. I may give him digoxin 0.25 mg IV now followed by another 0.25 mg IV every 6 hours x3. The rhythm may be closely monitored on telemetry. Status: Acute (2) Acute on chronic diastolic (congestive) heart failure: Most likely this is related to the arrhythmia. Patient may be carefully treated with IV diuretics. Status: Acute (3) Obstructive sleep apnea: Continue on the CPAP. Status: Acute (4) Severe mitral regurgitation: We had discussions in the past regarding the management of the severe mitral regurgitation with mitral valve prolapse. Because of the patient's severe kyphoscoliosis, interventional treatment could be challenging. The patient and the family decided not to undergo any interventional procedures at that time. But if he has recurrence of the heart failure, especially with the new onset of atrial fibrillation, we may revisit this again. For the time being we will try to optimize his medical treatment for arrhythmia and heart failure. I also may contact the interventional cardiology in [place] regarding the feasibility of percutaneous intervention. Status: Acute Additional A&P Information Other problems are Elevated troponin T, most likely from the type II NV History of mild coronary disease by angiogram Ascending aortic ectasia Essential benign hypertension Dyslipidemia Severe kyphoscoliosis COPD GERD Irritable bowel syndrome Osteoarthritis Based on the patient's clinical progress, further management decisions will be made. Thank you for the opportunity to eval this patient make these recommendations. Coding Level of Care Code Acute Apprentice Photographer for [facility] Fwd Diagnoses Atrial fibrillation with RVR I48.91 Acute on chronic diastolic (congestive) heart failure I50.33 Obstructive sleep apnea G47.33 Severe mitral regurgitation I34.0
--- NOTE | 2019-11-23 09:24 | PC.SOCIAL ---
Pg 2 IMM Explained to pt Pg 2 IMM, in writing. Pt verbally understands. No questions voiced. Provided pt a copy & left on pt's bedside table. Signed, dated, & timed a copy & placed in chart.
[2019-11-23] MEDS: atorvastatin 40 mg Tablet 20 MG PO (09:46)
[2019-11-23] MEDS: gabapentin 300 mg Capsule PO ×2 (09:46→17:13)
[2019-11-23] MEDS: pantoprazole DR 40 mg Tablet PO ×2 (09:47→17:12)
[2019-11-23] MEDS: dilTIAZem ER (24HR) 180 mg Capsule PO (09:47)
[2019-11-23] MEDS: amiodarone 200 mg Tablet 400 MG PO (09:47)
[2019-11-23] MEDS: potassium chloride ER 10 mEq Tablet 40 MEQ PO (09:47)
[2019-11-23] MEDS: FUROsemide 40 mg Tablet PO ×2 (09:47→16:39)
[2019-11-23] MEDS: sucralfate 1 gm Tablet PO ×4 (09:48→21:33)
[2019-11-23] MEDS: aspirin 81 mg Chew Tablet PO (09:48)
[2019-11-23] MEDS: docusate sodium 100 mg Capsule PO ×2 (09:48→17:12)
[2019-11-23] MEDS: apixaban 5 mg Tablet PO ×2 (09:48→17:12)
[2019-11-23] MEDS: dicyclomine 20 mg Tablet PO ×4 (09:48→21:33)
[2019-11-23] MEDS: montelukast sodium 10 mg Tablet PO (09:48)
[2019-11-23] MEDS: isosorbide mononitrate 20 mg Tablet 10 MG PO ×2 (09:48→17:12)
[2019-11-23] MEDS: tamsulosin 0.4 mg Capsule 0.8 MG PO (09:48)
--- NOTE | 2019-11-23 10:05 | PC.NURSE ---
PATIENT RESTING IN CHAIR ; PATIENT DENIES ANY COMPLAINTS AT THIS TIME
[2019-11-23] MEDS: digoxin 250 mcg/ml INJ 2 mL IVP (11:19)
--- NOTE | 2019-11-23 11:33 | PC.NURSE ---
PATIENT SITTING IN CHAIR EATING ; PATIENT DENIES ANY COMPLAINTS AT THIS TIME ; MEDICATIONS WERE GIVEN AND PATIENT WAS LEFT COMFORTABLY IN ROOM
--- NOTE | 2019-11-23 13:17 | PC.NURSE ---
SPOKE WITH PATIENT OVER PHONE AND GAVE UPDATE ; MESSAGE WAS GIVEN TO BE PASSED ON TO PATIENT
--- NOTE | 2019-11-23 15:54 | PM.PN ---
Subjective Subjective: Interval history: This morning patient is sitting in a chair, will he wants to go home, denies chest pain, shortness of breath, patient has intermittent episodes of A. fib with RVR heart rates as 120s, which is difficult to manage due to hypotensive episodes, blood pressures 90s over 50s, Vitals/I&O/Wt Last Vital Signs Temp 98.6 F 11/23/19 12:00 Pulse 99 11/23/19 12:00 Resp 18 11/23/19 13:37 BP 103/43 11/23/19 12:00 Pulse Ox 97 11/23/19 08:54 11/23/19 11/23/19 11/23/19 06:59 14:59 22:59 Intake Total 200 / 1800 118 / 118 Output Total 1900 / 2810 100 / 100 Balance -1700 / -1010 Physical Exam Const: COMMON NORMALS: no acute distress and patient oriented x3 GENERAL APPEARANCE: cooperative and comfortable HENMT: COMMON NORMALS: normocephalic HEAD & SCALP: normocephalic Eye: COMMON NORMALS: Equal, round and reactive pupils present and EOMs intact bilaterally GENERAL EYE: appearance normal, both eyes and all related structures PUPIL: Yes Equal, round and reactive pupils present Neck/C-Spine: COMMON NORMALS: full ROM, no lymphadenopathy and no JVD Lymph: LYMPHATIC: no lymphadenopathy noted Resp: COMMON NORMALS: normal respiratory effort, No retractions, No use of accessory muscles and clear to auscultation bilaterally AUSCULTATION: clear to auscultation bilaterally and crackles Cardio: COMMON NORMALS: no JVD, S1 normal heart sound present, S2 normal heart sound present, No gallops present (Cardio), No clicks present (Cardio) and No murmurs present (Cardio) RATE: tachycardic RHYTHM: abnormal rhythm HEART SOUNDS: S1 normal heart sound present and S2 normal heart sound present GI: COMMON NORMALS: Normal to inspection, nondistended, normoactive bowel sounds present, Soft to palpation, non-tender, No hepatosplenomegaly present, no masses and no bruits PALPATION: Yes Soft to palpation and Yes No hepatosplenomegaly present Extremity: COMMON NORMALS: normal to inspection, full ROM, capillary refill normal, no clubbing, cyanosis or edema, no calf tenderness and no pedal edema Neuro: COMMON NORMALS: patient oriented x3 Data : 11/23/19 03:58 11/23/19 03:58 A&P Assessment and plan (1) Acute respiratory failure with hypoxia: -Secondary to atrial fibrillation, mitral regurg, heart failure - -3315 cc since admission -Continue Lasix 40 mg po twice daily, oxygen therapy, strict I's and O's, fluid restrictions to 1500 cc Status: Acute (2) Atrial fibrillation with RVR: -Heart rates 130s to 140s on admission, on Cardizem drip, currently heart rate 90s to 100, atrial fibrillation, -due to hypotensive episodes I switched him from metoprolol to amiodarone -Still has intermittent present episodes of A. fib heart rates as high as 130s, continue to have low blood pressures, for this I will consult cardiology for their assistance -BNP 3000 -Troponin mildly elevated -Currently doing well, no chest pain, no shortness of breath Plan: -We will admit to CSU -Continue telemetry monitoring -Monitor troponins, monitor EKGs, monitor for chest pain -Continue amiodarone, consult cardiology -Continue home diltiazem 180 mg p.o. daily -Start Eliquis 5 mg twice daily -Monitor hemoglobin closely Status: Acute (3) Hypertension: Status: Acute (4) Severe mitral regurgitation: Repeat echocardiogram showed EF of 64%, possibly severe mitral regurg, posteriorly directed mitral regurgitant jet -Patient and family do not want surgical interventions -Likely this is complaining a component to his left atrial dilatation, shortness of breath -Continue to monitor Status: Acute (5) Obstructive sleep apnea: Status: Acute (6) History of CVA (cerebrovascular accident): Status: Acute (7) CAD (coronary artery disease): Status: Acute Attestations Medical Necessity Statement*: Patient requires continued hospitalization due to acute respiratory failure, A. fib with RVR Coding Level of Care Code Acute Offset Press Operator Apprentice for [facility] Fwd Diagnoses Acute respiratory failure with hypoxia J96.01 Atrial fibrillation with RVR I48.91 Hypertension I10 Severe mitral regurgitation I34.0 Obstructive sleep apnea G47.33 History of CVA (cerebrovascular accident) Z86.73 CAD (coronary artery disease) I25.10
--- NOTE | 2019-11-23 20:07 | PC.NURSE ---
Rounded on Patient and had a complaint of dry eyes and contacted Dr. Jeffery with patients request. Awaiting orders. Patient was up to chair at time of assessment and Alert and oriented. Will continue to monitor.
--- NOTE | 2019-11-23 20:44 | PC.NURSE ---
Dr. Jeffery verfied QID for the artifical tears PRN order.
[2019-11-23] MEDS: trazodone 150 mg Tablet PO (21:32)
[2019-11-23] MEDS: artificial tears Op Soln 15 mL Btl 1 DROP EYE-BOTH (21:33)
[2019-11-24] VITALS (12 sets, daily range): BP systolic 90–121; BP diastolic 59–74; PULSE 69–115; RESP 16–35; TEMP 36.6–36.9; O2SAT 91–96
--- NOTE | 2019-11-24 00:48 | PC.NURSE ---
Rounding on patient and he was resting with his eyes closed. Patient had call light in reach and bed in low position. Will continue to monitor.
[2019-11-24 03:57] LABS: Basophils % 0.3 %; Eosinophils # 0.1 10^3/uL (0.0-0.8); Eosinophils % 1.3 %; Hematocrit 34.2 % (42.0-52.0); Hemoglobin 11.5 g/dL (11.7-16.6); Lymphocytes % 28.7 %; Mean Corpuscular HGB Conc 33.6 g/dL (30.0-36.0); Mean Corpuscular Hemoglobin 32.4 pg (28.0-34.0); Mean Corpuscular Volume 96.3 fL (80-94); Monocytes # 0.8 10^3/uL (0.2-0.9); Monocytes % 10.9 %; Neutrophils # 4.1 10^3/uL (1.8-7.7); Neutrophils % 58.5 %; Nucleated Red Blood Cells % 0 %; Platelet Count 164 10^3/cmm (130-400); Red Blood Count 3.55 10^6/uL (4.1-5.3); Red Cell Distribution Width 14.5 % (12.1-15.1)
[2019-11-24 04:37] LABS: Alanine Aminotransferase 24 U/L (0-41); Albumin Level 3.4 g/dL (3.5-5.2); Alkaline Phosphatase 103 IU/L (40-130); Anion Gap 17.6 (5-19); Aspartate Amino Transferase 15 U/L (0-40); Blood Urea Nitrogen 14 mg/dL (8-23); Calcium 8.9 mg/dL (8.5-10.5); Carbon Dioxide 28 mmol/L (22-29); Chloride 98 mmol/L (98-107); Globulin 2.4 g/dL (1.3-4.6); Glucose 91 mg/dL (65-115); Osmolality Calculated 286 mOsm/kg (285-295); Potassium 3.6 mmol/L (3.5-5.1); Sodium 140 mmol/L (136-145); Total Bilirubin 0.5 mg/dL (0.15-1.2); Total Protein 5.8 g/dL (6.6-8.7)
[2019-11-24 04:40] LABS: Magnesium 1.9 mg/dL (1.7-2.3); Phosphorus 4.1 mg/dL (2.5-4.5)
--- NOTE | 2019-11-24 05:14 | PC.NURSE ---
End of shift: Patient remains alert and oriented. Patient has rested well. Vitals remain stable. Patient has had no complaints of pain this shift. Patient has had a elevated heart rate while getting up to go to the bathroom but his rate quickly recovers once he lays down. It has happened twice and went up to 150's in afib. Heart rate currently 103bpm. Will continue to monitor.
--- NOTE | 2019-11-24 07:18 | PC.NURSE ---
PATIENT RESTING IN BED ; VSS ; PATIENT DENIES ANY COMPLAINTS AT THIS TIME ; REQUESTED TO BE HELPED UP TO CHAIR LATER IN THE MORNING
[2019-11-24] MEDS: dilTIAZem ER (24HR) 180 mg Capsule PO (09:09)
[2019-11-24] MEDS: gabapentin 300 mg Capsule PO ×2 (09:09→18:12)
[2019-11-24] MEDS: potassium chloride ER 10 mEq Tablet 40 MEQ PO (09:09)
[2019-11-24] MEDS: aspirin 81 mg Chew Tablet PO (09:09)
[2019-11-24] MEDS: apixaban 5 mg Tablet PO ×2 (09:09→18:12)
[2019-11-24] MEDS: tamsulosin 0.4 mg Capsule 0.8 MG PO (09:10)
[2019-11-24] MEDS: docusate sodium 100 mg Capsule PO ×2 (09:10→18:12)
[2019-11-24] MEDS: montelukast sodium 10 mg Tablet PO (09:10)
[2019-11-24] MEDS: FUROsemide 40 mg Tablet PO ×2 (09:10→16:42)
[2019-11-24] MEDS: amiodarone 200 mg Tablet 400 MG PO (09:10)
[2019-11-24] MEDS: sucralfate 1 gm Tablet PO ×4 (09:10→20:23)
[2019-11-24] MEDS: dicyclomine 20 mg Tablet PO ×4 (09:10→20:22)
[2019-11-24] MEDS: isosorbide mononitrate 20 mg Tablet 10 MG PO ×2 (09:10→18:12)
[2019-11-24] MEDS: atorvastatin 40 mg Tablet 20 MG PO (09:10)
[2019-11-24] MEDS: pantoprazole DR 40 mg Tablet PO ×2 (09:10→18:12)
--- NOTE | 2019-11-24 09:42 | P.PN_ITS ---
Subjective Subjective: Interval history: Patient is feeling better. But he has been having episodes of palpitations . The telemetry shows atrial fibrillation with rapid ventricular rate intermittently. He was given 1 dose of digoxin yesterday. The heart rate came down for a while and then again started going up. Patient denies any fever or chills. Blood pressure seems to be staying in the normal range. No other specific complaints. Medications: Reviewed: Yes Medication Review Details: Current Medications Acetaminophen (Tylenol) 650 mg PO Q6H PRN PRN Reason: Mild/Mod Pain Or Temp >/= 101 Amiodarone HCl (Cordarone) 400 mg PO DAILY [facility] Last Admin: 11/24/19 09:10 Dose: 400 mg Documented by: Apixaban (Eliquis) 5 mg PO BID [facility] Last Admin: 11/24/19 09:09 Dose: 5 mg Documented by: Artificial Tears (Isopto Tears) 1 drop EYE-BOTH QID PRN PRN Reason: DRY EYE(S) Last Admin: 11/23/19 21:33 Dose: 1 drop Documented by: Aspirin (Aspirin Chewable) 81 mg PO DAILY [facility] Last Admin: 11/24/19 09:09 Dose: 81 mg Documented by: Atorvastatin Calcium (Lipitor) 20 mg PO DAILY [facility] Last Admin: 11/24/19 09:10 Dose: 20 mg Documented by: Baclofen (Lioresal) 10 mg PO TID PRN PRN Reason: Pain Dicyclomine HCl (Bentyl) 20 mg PO QID [facility] Last Admin: 11/24/19 09:10 Dose: 20 mg Documented by: Diltiazem HCl (Cardizem Cd (24hr)) 180 mg PO DAILY [facility] Last Admin: 11/24/19 09:09 Dose: 180 mg Documented by: Docusate Sodium (Colace) 100 mg PO BID [facility] Last Admin: 11/24/19 09:10 Dose: 100 mg Documented by: Furosemide (Lasix) 40 mg PO BID@08,16 [facility] Last Admin: 11/24/19 09:10 Dose: 40 mg Documented by: Gabapentin (Neurontin) 300 mg PO BID [facility] Last Admin: 11/24/19 09:09 Dose: 300 mg Documented by: Hydromorphone HCl (Dilaudid Tab) 4 mg PO TID PRN PRN Reason: Pain Last Admin: 11/24/19 09:08 Dose: 4 mg Documented by: Isosorbide Mononitrate (Ismo) 10 mg PO BID [facility] Last Admin: 11/24/19 09:10 Dose: 10 mg Documented by: Montelukast Sodium (Singulair) 10 mg PO DAILY [facility] Last Admin: 11/24/19 09:10 Dose: 10 mg Documented by: Non-Formulary Medication (Linaclotide [Linzess]) 145 mcg PO DAILY [facility] Last Admin: 11/24/19 09:11 Dose: Not Given Documented by: Ondansetron HCl (Zofran) 4 mg IVP Q8H PRN PRN Reason: vomiting, or N/V if npo Pantoprazole Sodium (Protonix) 40 mg PO BID [facility] Last Admin: 11/24/19 09:10 Dose: 40 mg Documented by: Potassium Chloride (Klor-Con 10) 40 meq PO DAILY [facility] Last Admin: 11/24/19 09:09 Dose: 40 meq Documented by: Fluticasone/Salmeterol (Advair Diskus 500-50) 1 puff INHALATION BID.RESPIRATORY [facility] Last Admin: 11/24/19 09:27 Dose: 1 puff Documented by: Sucralfate (Carafate) 1 gm PO QID [facility] Last Admin: 11/24/19 09:10 Dose: 1 gm Documented by: Tamsulosin HCl (Flomax) 0.8 mg PO DAILY [facility] Last Admin: 11/24/19 09:10 Dose: 0.8 mg Documented by: Trazodone HCl (Desyrel) 150 mg PO BEDTIME [facility] Last Admin: 11/23/19 21:32 Dose: 150 mg Documented by: Vitals/I&O/Wt Last Vital Signs Temp 97.9 F 11/24/19 07:06 Pulse 115 H 11/24/19 09:30 Resp 18 11/24/19 09:30 BP 121/72 11/24/19 07:06 Pulse Ox 96 11/24/19 09:30 11/23/19 11/24/19 11/24/19 22:59 06:59 14:59 Intake Total 120 / 238 100 / 338 240 / 240 Output Total 400 / 500 1150 / 1650 Balance -280 / -262 -1050 / -1312 240 / 240 Physical Exam Narrative: EXAM NARRATIVE: GENERAL: The patient is alert and oriented times three. Not in any acute distress. HEENT: Has minimal pallor. No icterus or lymphadenopathy. The pupils are reactant to light. Oral cavity: There are no mucous membrane lesions. Funduscopic the fundus is not visualized NECK: Trachea appears to be central. No masses noted. No JVD or thyromegaly appreciated. No carotid bruit. RESPIRATORY: Chest is symmetrical. No intercostals muscle retraction or any accessory muscle activation. There is no chest wall tenderness. Breath sounds are heard bilaterally. No rales or rhonchi heard. No evidence of any consolidation. BREASTS: Deferred. HEART: The PMI is in the 5th left intercostals space just in the midclavicular line. No palpable precordial events. The first heart sound is variable. Second heart rate is normal. No S3. Pansystolic murmur of a grade 4/6 in the mitral area. No diastolic murmurs. No pericardial rub. ABDOMEN: No vessel pulsations or distention. No tenderness. No organomegaly a ppreciated. No abdominal bruit. Bowel sounds are normally heard. : Deferred. RECTAL: Deferred. LYMPHATIC: No lymphadenopathy noted in the neck or groin. EXTREMITIES: No edema or cyanosis. No clubbing. The pulses are palpable but weak bilaterally. MUSCULOSKELETAL: Patient has severe kyphoscoliosis. SKIN: There are no significant scars or skin rash noted. NEUROPSYCHIATRIC: The patient is alert and oriented x3. The higher functions are grossly within normal limits. No tremors or rigidity noted. Data : 11/24/19 03:05 11/24/19 03:05 A&P Assessment and plan (1) Atrial fibrillation with RVR: The atrial fibrillation, could be related to severe mitral regurgitation and diastolic heart failure. The heart rate is remaining uncontrolled. Because of the relatively low blood pressure, it may be appropriate to try him on digoxin. I may give him digoxin 0.25 mg IV now followed by another 0.25 mg IV every 6 hours x3. The rhythm may be closely monitored on telemetry. I also may discontinue the diltiazem and start him on metoprolol 50 mg p.o. twice daily. Continue other medications as it is. Status: Acute (2) Acute on chronic diastolic (congestive) heart failure: Most likely this is related to the arrhythmia. Patient may be carefully treated with IV diuretics. Status: Acute (3) Obstructive sleep apnea: Continue on the CPAP. Status: Acute (4) Severe mitral regurgitation: I discussed with the patient once again about the need for the mitral valve repair/replacement. I had a discussion yesterday with 1 of my interventional colleagues at the [facility]. Percutaneous intervention is still an option, even though could be a challenging technically. Surgical intervention with a lateral thoracotomy approach also is a consideration. I discussed this option with the patient today. But he is vehemently opposed to go for any surgery or percutaneous intervention. He seems understand the implications. Status: Acute Additional A&P Information Other problems are Elevated troponin T, most likely from the type II [place] History of mild coronary disease by angiogram Ascending aortic ectasia Essential benign hypertension Dyslipidemia Severe kyphoscoliosis COPD GERD Irritable bowel syndrome Osteoarthritis Based on the patient's clinical progress, further management decisions will be made. Attestations Medical Necessity Statement*: Patient requires continued hospital stay for close monitoring and further management Coding Level of Care Code Acute Apartment Community Manager for [facility] Fwd Diagnoses Atrial fibrillation with RVR I48.91 Acute on chronic diastolic (congestive) heart failure I50.33 Obstructive sleep apnea G47.33 Severe mitral regurgitation I34.0
[2019-11-24] MEDS: digoxin 250 mcg/ml INJ 2 mL IVP ×3 (10:01→22:16)
--- NOTE | 2019-11-24 10:24 | PC.NURSE ---
DR COLEMAN CONSULTED WITH PATIENT ABOUT DX AND OPTIONS ; PATIENT DENIED ALL OPTIONS STATING HE DID NOT WANT TO BE IN THE HOSPITAL ANY LONGER ; PATIENT WAS ASKING TO GO HOME ; DR COLEMAN REINFORCED WHY A CONTINUED STAY WAS NEEDED AND PATIENT UNDERSTOOD ; DR COLEMAN REQUESTED THAT I CONTACT AND GIVE HER AN UPDATE ; WAS CONTACTED
--- NOTE | 2019-11-24 10:40 | PC.NURSE ---
MARIA ELENA FROM [facility] WAS CALLED WITH AN UPDATE
--- NOTE | 2019-11-24 14:12 | P.PN_ITS ---
Subjective Subjective: Interval history: Patient is doing well this morning, still having intermittent episodes of shortness of breath, but overall doing better, is -4.16 L since admission, is wondering when he can go home, still having episodes of A. fib heart rates as high as 140 when he gets up and moves around, will need better titration of his heart rate, given his severe mitral regurg and left atrial dilatation is playing a significant role, patient adamant about not having surgical intervention Vitals/I&O/Wt Last Vital Signs Temp 97.9 F 11/24/19 10:33 Pulse 108 H 11/24/19 10:33 Resp 20 H 11/24/19 10:33 BP 95/66 11/24/19 10:33 Pulse Ox 93 11/24/19 10:33 11/23/19 11/24/19 11/24/19 22:59 06:59 14:59 Intake Total 120 / 238 100 / 338 480 / 480 Output Total 400 / 500 1150 / 1650 Balance -280 / -262 -1050 / -1312 480 / 480 Physical Exam Const: COMMON NORMALS: no acute distress and patient oriented x3 GENERAL APPEARANCE: cooperative and comfortable HENMT: COMMON NORMALS: normocephalic HEAD & SCALP: normocephalic Eye: COMMON NORMALS: Equal, round and reactive pupils present and EOMs intact bilaterally GENERAL EYE: appearance normal, both eyes and all related structures PUPIL: Yes Equal, round and reactive pupils present Neck/C-Spine: COMMON NORMALS: no JVD Lymph: LYMPHATIC: no lymphadenopathy noted Resp: COMMON NORMALS: normal respiratory effort, No retractions, No use of accessory muscles and clear to auscultation bilaterally AUSCULTATION: clear to auscultation bilaterally Cardio: COMMON NORMALS: no JVD, regular rate, regular rhythm, S1 normal heart sound present and S2 normal heart sound present RATE: regular rate RHYTHM: regular rhythm HEART SOUNDS: S1 normal heart sound present and S2 normal heart sound present GI: COMMON NORMALS: Normal to inspection, nondistended, normoactive bowel sounds present, Soft to palpation, non-tender, No hepatosplenomegaly present, no masses and no bruits PALPATION: Yes Soft to palpation and Yes No hepatosplenomegaly present Extremity: COMMON NORMALS: capillary refill normal, no clubbing, cyanosis or edema, no calf tenderness and no pedal edema Neuro: COMMON NORMALS: patient oriented x3 Psych: COMMON NORMALS: mental status grossly normal Data : 11/24/19 03:05 11/24/19 03:05 A&P Assessment and plan (1) Acute respiratory failure with hypoxia: -Secondary to atrial fibrillation, mitral regurg, heart failure - 4165 cc since admission -Continue Lasix 40 mg po twice daily, oxygen therapy, strict I's and O's, fluid restrictions to 1500 cc Status: Acute (2) Atrial fibrillation with RVR: -Heart rates 130s to 140s on admission, on Cardizem drip, currently heart rate 90s to 100, atrial fibrillation, -due to hypotensive episodes I switched him from metoprolol to amiodarone -Still has intermittent present episodes of A. fib heart rates as high as 130s, continue to have low blood pressures, for this I have consult cardiology for their assistance -BNP 3000 -Troponin mildly elevated -Currently doing well, no chest pain, no shortness of breath Plan: -We will admit to [facility]SU -Continue telemetry monitoring -Monitor troponins, monitor EKGs, monitor for chest pain -Continue amiodarone, consult cardiology -Continue home diltiazem 180 mg p.o. daily -He is receiving digoxin pressures -Start Eliquis 5 mg twice daily -Monitor hemoglobin closely Status: Acute (3) Hypertension: Status: Acute (4) Severe mitral regurgitation: Repeat echocardiogram showed EF of 64%, possibly severe mitral regurg, posteriorly directed mitral regurgitant jet -Patient and family do not want surgical interventions -Likely this is complaining a component to his left atrial dilatation, shortness of breath -Continue to monitor Status: Acute (5) Obstructive sleep apnea: Status: Acute (6) History of CVA (cerebrovascular accident): Status: Acute (7) CAD (coronary artery disease): Status: Acute Attestations Medical Necessity Statement*: Patient requires continued hospitalization due t o acute respiratory failure, atrial fibrillation Coding Level of Care Code Acute Power Project Manager for [facility] Diagnoses Acute respiratory failure with hypoxia J96.01 Atrial fibrillation with RVR I48.91 Hypertension I10 Severe mitral regurgitation I34.0 Obstructive sleep apnea G47.33 History of CVA (cerebrovascular accident) Z86.73 CAD (coronary artery disease) I25.10
[2019-11-24] MEDS: metoprolol tartrate 50 mg Tablet PO (18:12)
--- NOTE | 2019-11-24 19:40 | PC.NURSE ---
Rounding: Patient up to chair. Patient alert and orientated. Patient denies any needs at this time. Patients call light is within reach at this time. Will continue to monitor.
[2019-11-24] MEDS: trazodone 150 mg Tablet PO (20:22)
--- NOTE | 2019-11-24 22:27 | PC.NURSE ---
At [address] Jeffery regarding patients blood pressure and heart rate and his 250mcg dose of digoxin IVP. Blood pressure 98/59 automatic and 96/60 manual. heart rate 70 bpm apical and [address] Jeffery instructed me to hold this dose of digoxin and to monitor the patient. Told him why the patient was here and what recent medications patient had been given. Read back verbal order.
[2019-11-25] VITALS (9 sets, daily range): BP systolic 93–117; BP diastolic 62–79; PULSE 72–110; RESP 20–26; TEMP 36.6–36.7; O2SAT 92–95
--- NOTE | 2019-11-25 00:12 | PC.NURSE ---
Rounded on patient. Assisted patient with getting comfortable in bed. Patient denied any further needs and closed his eyes. Patient assessment completed. Patients call light within reach and bed in the low position. Will continue to monitor.
[2019-11-25 05:02] LABS: Basophils % 0.3 %; Eosinophils # 0.1 10^3/uL (0.0-0.8); Eosinophils % 1.5 %; Hematocrit 35.7 % (42.0-52.0); Hemoglobin 11.8 g/dL (11.7-16.6); Lymphocytes # 1.7 10^3/uL (0.8-4.8); Lymphocytes % 24.4 %; Mean Corpuscular HGB Conc 33.1 g/dL (30.0-36.0); Mean Corpuscular Volume 96.7 fL (80-94); Monocytes # 0.8 10^3/uL (0.2-0.9); Monocytes % 11.2 %; Neutrophils # 4.3 10^3/uL (1.8-7.7); Nucleated Red Blood Cells % 0 %; Platelet Count 179 10^3/cmm (130-400); Red Blood Count 3.69 10^6/uL (4.1-5.3); Red Cell Distribution Width 14.5 % (12.1-15.1); White Blood Count 6.9 10^3/uL (4.0-10.0)
[2019-11-25 05:21] LABS: Alanine Aminotransferase 19 U/L (0-41); Albumin Level 3.7 g/dL (3.5-5.2); Alkaline Phosphatase 100 IU/L (40-130); Aspartate Amino Transferase 16 U/L (0-40); Blood Urea Nitrogen 17 mg/dL (8-23); Calcium 9.4 mg/dL (8.5-10.5); Carbon Dioxide 30 mmol/L (22-29); Chloride 99 mmol/L (98-107); Glucose 89 mg/dL (65-115); Osmolality Calculated 284 mOsm/kg (285-295); Sodium 139 mmol/L (136-145); Total Bilirubin 0.5 mg/dL (0.15-1.2); Total Protein 5.7 g/dL (6.6-8.7)
[2019-11-25 05:22] LABS: Magnesium 2.1 mg/dL (1.7-2.3); Phosphorus 3.9 mg/dL (2.5-4.5)
[2019-11-25] MEDS: artificial tears Op Soln 15 mL Btl 1 DROP EYE-BOTH (05:26)
--- NOTE | 2019-11-25 05:44 | PC.NURSE ---
End of shift: Patient rested well this shift and had a uneventful shift. Patients heart rate stayed below 100bpm. 2145 dose of digoxin held per Dr. Jeffery due to hypotension. Patients call light is within reach and bed is in low position.
[2019-11-25] MEDS: montelukast sodium 10 mg Tablet PO (09:08)
[2019-11-25] MEDS: tamsulosin 0.4 mg Capsule 0.8 MG PO (09:09)
[2019-11-25] MEDS: potassium chloride ER 10 mEq Tablet 40 MEQ PO (09:09)
[2019-11-25] MEDS: gabapentin 300 mg Capsule PO (09:10)
[2019-11-25] MEDS: amiodarone 200 mg Tablet 400 MG PO (09:10)
[2019-11-25] MEDS: sucralfate 1 gm Tablet PO ×2 (09:10→13:52)
[2019-11-25] MEDS: dicyclomine 20 mg Tablet PO ×2 (09:10→13:52)
[2019-11-25] MEDS: atorvastatin 40 mg Tablet 20 MG PO (09:10)
[2019-11-25] MEDS: apixaban 5 mg Tablet PO (09:11)
[2019-11-25] MEDS: aspirin 81 mg Chew Tablet PO (09:11)
[2019-11-25] MEDS: pantoprazole DR 40 mg Tablet PO (09:11)
--- NOTE | 2019-11-25 09:53 | PC.SOCIAL ---
IMM completed on 11.25.19 @0688
[2019-11-25] MEDS: FUROsemide 40 mg Tablet PO ×2 (11:12→15:40)
[2019-11-25] MEDS: digoxin 250 mcg/ml INJ 2 mL IVP (11:14)
[2019-11-25] MEDS: metoprolol tartrate 50 mg Tablet PO (11:15)
--- NOTE | 2019-11-25 12:26 | PM.PN ---
Subjective Subjective: Interval history: This morning patient is doing well, still having intermittent been several episodes of A. fib, when getting up, he did have a hypotensive episode overnight, requiring metoprolol to be held, he is considering interventions for his mitral valve now, no chest pain, no shortness of breath, is wondering when he is can go home Vitals/I&O/Wt Last Vital Signs Temp 97.9 F 11/25/19 10:36 Pulse 110 H 11/25/19 10:36 Resp 25 H 11/25/19 10:36 BP 109/72 11/25/19 10:36 Pulse Ox 94 11/25/19 10:36 11/24/19 11/25/19 11/25/19 22:59 06:59 14:59 Intake Total 120 / 600 100 / 700 480 / 480 Output Total 1425 / 1425 350 / 1775 Balance -1305 / -825 -250 / -1075 479 / 479 Physical Exam Const: COMMON NORMALS: no acute distress and patient oriented x3 GENERAL APPEARANCE: cooperative and comfortable HENMT: COMMON NORMALS: normocephalic HEAD & SCALP: normocephalic Eye: COMMON NORMALS: Equal, round and reactive pupils present and EOMs intact bilaterally GENERAL EYE: appearance normal, both eyes and all related structures PUPIL: Yes Equal, round and reactive pupils present Neck/C-Spine: COMMON NORMALS: no JVD Lymph: LYMPHATIC: no lymphadenopathy noted Resp: COMMON NORMALS: normal respiratory effort, No retractions, No use of accessory muscles and clear to auscultation bilaterally AUSCULTATION: clear to auscultation bilaterally Cardio: COMMON NORMALS: no JVD, regular rate, regular rhythm, S1 normal heart sound present and S2 normal heart sound present RATE: regular rate RHYTHM: regular rhythm HEART SOUNDS: S1 normal heart sound present and S2 normal heart sound present GI: COMMON NORMALS: Normal to inspection, nondistended, normoactive bowel sounds present, Soft to palpation, non-tender, No hepatosplenomegaly present, no masses and no bruits PALPATION: Yes Soft to palpation and Yes No hepatosplenomegaly present Extremity: COMMON NORMALS: capillary refill normal, no clubbing, cyanosis or edema, no calf tenderness and no pedal edema Neuro: COMMON NORMALS: patient oriented x3 Psych: COMMON NORMALS: mental status grossly normal Data : 11/25/19 04:04 11/25/19 04:04 A&P Assessment and plan (1) Acute respiratory failure with hypoxia: -Secondary to atrial fibrillation, mitral regurg, heart failure -5241 cc since admission -Continue Lasix 40 mg po twice daily, oxygen therapy, strict I's and O's, fluid restrictions to 1500 cc Status: Acute (2) Atrial fibrillation with RVR: -Heart rates 130s to 140s on admission, on Cardizem drip, currently heart rate 90s to 100, atrial fibrillation, -due to hypotensive episodes I switched him from metoprolol to amiodarone -Still has intermittent present episodes of A. fib heart rates as high as 130s, continue to have low blood pressures, for this I have consult cardiology for their assistance -Overnight metoprolol was held due to hypotensive episodes -BNP 3000 -Troponin mildly elevated -Currently doing well, no chest pain, no shortness of breath Plan: -We will admit to CSU -Continue telemetry monitoring -Monitor troponins, monitor EKGs, monitor for chest pain -Continue amiodarone, continue metoprolol consult cardiology -Continue digoxin pushes - Eliquis 5 mg twice daily -Monitor hemoglobin closely Status: Acute (3) Hypertension: Status: Acute (4) Severe mitral regurgitation: Repeat echocardiogram showed EF of 64%, possibly severe mitral regurg, posteriorly directed mitral regurgitant jet -Patient is considering possible surgical intervention -Likely this is complaining a component to his left atrial dilatation, shortness of breath -Continue to monitor Status: Acute (5) Obstructive sleep apnea: Status: Acute (6) History of CVA (cerebrovascular accident): Status: Acute (7) CAD (coronary artery disease): Status: Acute Attestations Medical Necessity Statement*: Patient requires continued hospitalization for acute respiratory failure, atrial fibrillation, severe mitral regurg, past persistent hypotensive episodes, episodes of A. fib in the high 120s-130 when ambulating Coding Level of Care Code Acute Branch Service Representative for [facility] Fwd Diagnoses Acute respiratory failure with hypoxia J96.01 Atrial fibrillation with RVR I48.91 Hypertension I10 Severe mitral regurgitation I34.0 Obstructive sleep apnea G47.33 History of CVA (cerebrovascular accident) Z86.73 CAD (coronary artery disease) I25.10
--- NOTE | 2019-11-25 13:10 | P.PN_ITS ---
Subjective Subjective: Interval history: Patient is feeling okay. The heart rate is getting under control. Denies any fever or chills. No cough. The shortness of breath is much better. Medications: Reviewed: Yes Medication Review Details: Current Medications Acetaminophen (Tylenol) 650 mg PO Q6H PRN PRN Reason: Mild/Mod Pain Or Temp >/= 101 Amiodarone HCl (Cordarone) 400 mg PO DAILY [facility] Last Admin: 11/25/19 09:10 Dose: 400 mg Documented by: Apixaban (Eliquis) 5 mg PO BID [facility] Last Admin: 11/25/19 09:11 Dose: 5 mg Documented by: Artificial Tears (Isopto Tears) 1 drop EYE-BOTH QID PRN PRN Reason: DRY EYE(S) Last Admin: 11/25/19 05:26 Dose: 1 drop Documented by: Aspirin (Aspirin Chewable) 81 mg PO DAILY [facility] Last Admin: 11/25/19 09:11 Dose: 81 mg Documented by: Atorvastatin Calcium (Lipitor) 20 mg PO DAILY [facility] Last Admin: 11/25/19 09:10 Dose: 20 mg Documented by: Baclofen (Lioresal) 10 mg PO TID PRN PRN Reason: Pain Dicyclomine HCl (Bentyl) 20 mg PO QID [facility] Last Admin: 11/25/19 09:10 Dose: 20 mg Documented by: Digoxin (Lanoxin) 125 mcg PO DAILY [facility] Docusate Sodium (Colace) 100 mg PO BID [facility] Last Admin: 11/25/19 09:12 Dose: Not Given Documented by: Furosemide (Lasix) 40 mg PO BID@08,16 [facility] Last Admin: 11/25/19 11:12 Dose: 40 mg Documented by: Gabapentin (Neurontin) 300 mg PO BID [facility] Last Admin: 11/25/19 09:10 Dose: 300 mg Documented by: Hydromorphone HCl (Dilaudid Tab) 4 mg PO TID PRN PRN Reason: Pain Last Admin: 11/24/19 20:22 Dose: 4 mg Documented by: Metoprolol Tartrate (Lopressor) 50 mg PO BID [facility] Last Admin: 11/25/19 11:15 Dose: 50 mg Documented by: Montelukast Sodium (Singulair) 10 mg PO DAILY [facility] Last Admin: 11/25/19 09:08 Dose: 10 mg Documented by: Non-Formulary Medication (Linaclotide [Linzess]) 145 mcg PO DAILY [facility] Last Admin: 11/25/19 09:12 Dose: Not Given Documented by: Ondansetron HCl (Zofran) 4 mg IVP Q8H PRN PRN Reason: vomiting, or N/V if npo Pantoprazole Sodium (Protonix) 40 mg PO BID [facility] Last Admin: 11/25/19 09:11 Dose: 40 mg Documented by: Potassium Chloride (Klor-Con 10) 40 meq PO DAILY [facility] Last Admin: 11/25/19 09:09 Dose: 40 meq Documented by: Fluticasone/Salmeterol (Advair Diskus 500-50) 1 puff INHALATION BID.RESPIRATORY [facility] Last Admin: 11/25/19 09:45 Dose: 1 puff Documented by: Sucralfate (Carafate) 1 gm PO QID [facility] Last Admin: 11/25/19 09:10 Dose: 1 gm Documented by: Tamsulosin HCl (Flomax) 0.8 mg PO DAILY [facility] Last Admin: 11/25/19 09:09 Dose: 0.8 mg Documented by: Trazodone HCl (Desyrel) 150 mg PO BEDTIME [facility] Last Admin: 11/24/19 20:22 Dose: 150 mg Documented by: Vitals/I&O/Wt Last Vital Signs Temp 97.9 F 11/25/19 10:36 Pulse 110 H 11/25/19 10:36 Resp 25 H 11/25/19 10:36 BP 109/72 11/25/19 10:36 Pulse Ox 94 11/25/19 10:36 11/24/19 11/25/19 11/25/19 22:59 06:59 14:59 Intake Total 120 / 600 100 / 700 480 / 480 Output Total 1425 / 1425 350 / 1775 Balance -1305 / -825 -250 / -1075 479 / 479 Physical Exam Narrative: EXAM NARRATIVE: GENERAL: The patient is alert and oriented times three. Not in any acute distress. HEENT: Has minimal pallor. No icterus or lymphadenopathy. The pupils are reactant to light. Oral cavity: There are no mucous membrane lesions. Funduscopic the fundus is not visualized NECK: Trachea appears to be central. No masses noted. No JVD or thyromegaly appreciated. No carotid bruit. RESPIRATORY: Chest is symmetrical. No intercostals muscle retraction or any accessory muscle activation. There is no chest wall tenderness. Breath sounds are heard bilaterally. No rales or rhonchi heard. No evidence of any consolidation. BREASTS: Deferred. HEART: The PMI is in the 5th left intercostals space just in the midclavicular line. No palpable precordial events. The first heart sound is variable. Second heart rate is normal. No S3. Pansystolic murmur of a grade 4/6 in the mitral area. No diastolic murmurs. No pericardial rub. ABDOMEN: No vessel pulsations or distention. No tenderness. No organomegaly appreciated. No abdominal bruit. Bowel sounds are normally heard. : Deferred. RECTAL: Deferred. LYMPHATIC: No lymphadenopathy noted in the neck or groin. EXTREMITIES: No edema or cyanosis. No clubbing. The pulses are palpable but weak bilaterally. MUSCULOSKELETAL: Patient has severe kyphoscoliosis. SKIN: There are no significant scars or skin rash noted. NEUROPSYCHIATRIC: The patient is alert and oriented x3. The higher functions are grossly within normal limits. No tremors or rigidity noted. Data : 11/25/19 04:04 11/25/19 04:04 A&P Assessment and plan (1) Low blood pressure: Status: Acute Qualifiers: Hypotension type: hypotension due to drug Qualified Code(s): I95.2 - Hypotension due to drugs (2) Atrial fibrillation with RVR: Since the heart rate is getting under control, I may hold off on the digoxin. I will continue on the of the metoprolol 50 mg p.o. daily. The amiodarone may be kept on 400 mg p.o. daily. Status: Acute (3) Acute on chronic diastolic (congestive) heart failure: Most likely this is related to the arrhythmia. Patient may be kept on the p.o. Lasix Status: Acute (4) Obstructive sleep apnea: Continue on the CPAP. Status: Acute (5) Severe mitral regurgitation: Patient is still opposed to any surgical intervention for the mitral valve. He will let me know, if there is any change of mind. In the meanwhile, we will continue on the current treatment. Status: Acute Additional A&P Information Other problems are Elevated troponin T, most likely from the type II NC History of mild coronary disease by angiogram Ascending aortic ectasia Essential benign hypertension Dyslipidemia Severe kyphoscoliosis COPD GERD Irritable bowel syndrome Osteoarthritis Discussed with Dr. Rivas. If the patient continues remain stable, may be discharged home today. I may see him in the office in 3 weeks. Will be seen by the nurse practitioner at the [facility] next week Attestations Medical Necessity Statement*: Disposition as per the primary Coding Level of Care Code Acute Explosive Ordnance Disposal Specialist for Chg Fwd Diagnoses Low blood pressure I95.2 Hypotension type: hypotension due to drug Atrial fibrillation with RVR I48.91 Acute on chronic diastolic (congestive) heart failure I50.33 Obstructive sleep apnea G47.33 Severe mitral regurgitation I34.0
--- NOTE | 2019-11-25 15:20 | P.DS_ITS ---
Discharge Providers Date of Admission: 11/20/19 14:43 Date of Discharge: November 25, 2019 Attending Provider at Admission: Juan Rice MD Attending Provider at Discharge: Juan Rice MD Primary Care Provider: Joss Huddleston MD Diagnoses at Discharge Discharge Diagnosis (1) Low blood pressure: Status: Acute Qualifiers: Hypotension type: hypotension due to drug Qualified Code(s): I95.2 - Hypotension due to drugs (2) Atrial fibrillation with RVR: Status: Acute (3) Acute on chronic diastolic (congestive) heart failure: Status: Acute (4) Obstructive sleep apnea: Status: Acute (5) Severe mitral regurgitation: Status: Acute Reason for Visit Reason for Visit: afib/sent from [facility] Course Discharge Summary: This is a 74-year-old male with a past medical history of heart failure, severe mitral regurg who presents [facility] due to complaints of shortness of breath and chest palpitations. Patient was admitted for acute respiratory failure with hypoxia secondary to heart failure exacerbation, and A. fib with RVR, admitted to [facility]. For his acute respiratory failure with hypoxia, secondary to atrial fibrillation, mitral regurg, heart failure, diuresed roughly 5.2 L, did well, discharged home on Lasix 40 mg twice daily with potassium placement therapy. For his atrial fibrillation, likely secondary to left atrial dilation with mitral regurg, cardiology was consulted, discharged on Eliquis 5 mg twice daily, his heart rates were difficult to control during his hospitalization secondary to heart rates as high as 130s with exertion, and low blood pressures. Likely will complicating this was severe mitral regurg and left atrial dilatation. Patient was discharged on amiodarone 400 mg p.o. daily, metoprolol 50 twice da amaris. Repeat echocardiogram showed severe mitral regurg, patient in the past has refused surgical intervention, repeat echocardiogram continued to show severe mitral regurg, patient stated that he would consider possible surgical intervention, would discuss with family, patient was advised to follow with cardiology. Patient was advised if he were to have bloody or black stools on Eliquis come ba ck to the emergency room. Patient was advised for lightheadedness or dizziness, with metoprolol, come back to the emergency room. Physical Exam Const: COMMON NORMALS: no acute distress and patient oriented x3 HENMT: COMMON NORMALS: normocephalic HEAD & SCALP: normocephalic Neck/C-Spine: COMMON NORMALS: no JVD Resp: COMMON NORMALS: normal respiratory effort, No retractions, No use of accessory muscles and clear to auscultation bilaterally AUSCULTATION: clear to auscultation bilaterally Cardio: COMMON NORMALS: no JVD, regular rate, regular rhythm, S1 normal heart sound present and S2 normal heart sound present RATE: regular rate RHYTHM: regular rhythm HEART SOUNDS: S1 normal heart sound present and S2 normal heart sound present GI: COMMON NORMALS: Normal to inspection, nondistended, normoactive bowel sounds present, Soft to palpation, non-tender, No hepatosplenomegaly present, no masses and no bruits PALPATION: Yes Soft to palpation and Yes No hepatosplenomegaly present Extremity: COMMON NORMALS: capillary refill normal, no clubbing, cyanosis or edema, no calf tenderness and no pedal edema Neuro: COMMON NORMALS: patient oriented x3 Psych: COMMON NORMALS: mental status grossly normal Discharge Data Data Completed and Pending: Completed Studies During Hospitalization Category Date Time Status XR chest 1V amy ble [id number] Stat Exams 11/20/19 11:25 Completed CV echo complete* [id number] Routine Ultrasound 11/21/19 07:00 Completed Pending at discharge Category Date Time Status Complete Blood Co unt w/Auto AM LABS Lab 11/26/19 04:00 Ordered Complete Blood Co unt w/Auto AM LABS Lab 11/27/19 04:00 Ordered Comprehensive Met abolic Panel AM LA BS Lab 11/26/19 04:00 Ordered Comprehensive Met abolic Panel AM LA BS Lab 11/27/19 04:00 Ordered Magnesium AM LABS Lab 11/26/19 04:00 Ordered Phosphorus AM LAB S Lab 11/26/19 04:00 Ordered Labs from last 24 hours 11/25/19 11/25/19 11/25/19 04:04 04:04 04:04 WBC 6.9 RBC 3.69 L Hgb 11.8 Hct 35.7 L MCV 96.7 H MCH 32.0 MCHC 33.1 RDW 14.5 Plt Count 179 MPV 11.0 H Neut % (Auto) 62.0 Lymph % (Auto) 24.4 [place] % (Auto) 11.2 Eos % (Auto) 1.5 Baso % (Auto) 0.3 Neut # (Auto) 4.3 Lymph # (Auto) 1.7 [place] # (Auto) 0.8 Eos # (Auto) 0.1 Baso # (Auto) 0.0 Nucleated RBC % (a uto) 0 Nucleated RBCs # 0.0 Sodium 139 Potassium 4.0 Chloride 99 Carbon Dioxide 30 H Anion Gap 14.0 BUN 17 Creatinine 0.7 Glucose 89 Calculated Osmolal ity 284 L Calcium 9.4 Phosphorus 3.9 Magnesium 2.1 Total Bilirubin 0.5 AST 16 ALT 19 Alkaline Phosphata se 100 Total Protein 5.7 L Albumin 3.7 Globulin 2.0 Vitals: Last Vital Signs Temp 97.9 F 11/25/19 14:46 Pulse 83 11/25/19 14:46 Resp 21 H 11/25/19 14:46 BP 115/76 11/25/19 14:46 Pulse Ox 94 11/25/19 14:46 Discharge Plan Discharge Patient Disposition: Home, Self-Care Condition: Stable Prescriptions: New furosemide 40 mg Tablet 40 mg PO BID@08,16 30 Days Qty: 60 RF: 0 Pacerone 200 mg Tablet 400 mg PO DAILY 30 Days Qty: 30 RF: 0 metoprolol tartrate 50 mg Tablet 50 mg PO BID 30 Days Qty: 60 RF: 0 Eliquis 5 mg Tablet 5 mg PO BID 30 Days Qty: 60 RF: 0 Continued cetirizine 10 mg tablet 10 mg PO DAILY RF: 0 sucralfate 1 gram tablet 1 g PO QID RF: 0 pravastatin 80 mg tablet 80 mg PO DAILY RF: 0 tamsulosin 0.4 mg capsule 0.8 mg PO DAILY RF: 0 dicyclomine 20 mg tablet 20 mg PO QID RF: 0 baclofen 10 mg tablet 10 mg PO TID PRN (Reason: Pain) RF: 0 pantoprazole 40 mg tablet,delayed release (DR/EC) 40 mg PO BID RF: 0 trazodone 150 mg tablet 150 mg PO BEDTIME RF: 0 Colace 100 mg Capsule 100 mg PO BID RF: 0 gabapentin 300 mg capsule 300 mg PO BID RF: 0 aspirin 81 mg Tablet,Chewable 81 mg PO DAILY RF: 0 montelukast 10 mg tablet 10 mg PO DAILY RF: 0 hydromorphone 4 mg tablet 4 mg PO TID PRN (Reason: Pain) RF: 0 Symbicort 160-4.5 mcg/actuation HFA aerosol inhaler 2 puff INHALATION BID RF: 0 Linzess 145 mcg Capsule 145 mcg PO DAILY RF: 0 Changed potassium chloride 20 mEq tablet extended release 20 meq PO BID 30 Days Qty: 60 RF: 0 Discontinued isosorbide mononitrate 10 mg tablet 10 mg PO BID 90 Days Qty: 180 RF: 3 metoprolol tartrate 25 mg tablet 25 mg PO BID 90 Days Qty: 180 RF: 3 furosemide 40 mg tablet 40 mg PO DAILY RF: 0 diltiazem HCl 180 mg capsule,extended release 24 hr 180 mg PO DAILY RF: 0 Discharge Orders: Discharge Order (Routine); Ordered 11/25/19 Ordered By: Juan Rice Other Ambulatory Orders: Complete Blood Count w/Auto (Routine) Timeframe: 1 Week Location: Determined by Patient Ordered By: Juan Rice Comprehensive Metabolic Panel (Routine) Timeframe: 1 Week Facility: [facility] - Location: Lab - Main Lab Ordered By: Juan Rice Referrals: Charley Salazar MD [Physician] - 1 week ([facility] will be contacting to schedule an follow-up appointment in 1 week. If, you haven't heard from them by Tuesday afternoon. Please call ) Discharge Diet: Cardiac Discharge Activity: Resume usual activity Patient Instructions: Apixaban (By mouth), Atrial Fibrillation (DC), Mitral Regurgitation (GEN) Activity Restrictions/Additional Instructions: -Follow-up with Dr. Salazar in 1 week -If you have chest pain come back to emergency room -If you lightheaded or dizziness come back to the emergency room -Repeat blood work in a week -Please consider mitral valve replacement Discharge Attestations Time Spent in Discharge Care*: less than 30 min Quality Metrics Clinical Quality Measures During this hospital stay, did patient experience: None Coding Level of Care Code Acute Belt Fixer for Chg Fwd Diagnoses Low blood pressure I95.2 Hypotension type: hypotension due to drug Atrial fibrillation with RVR I48.91 Acute on chronic diastolic (congestive) heart failure I50.33 Obstructive sleep apnea G47.33 Severe mitral regurgitation I34.0
--- NOTE | 2019-11-25 16:45 | PC.NURSE ---
[facility] notified that pt is being discharged today.discharge instructions given and explained to pt's daughter and grandaughter.they verb understanding of instructions.discharged at this time.
== END 2019-11-25 16:47 | disposition home or self-care (01) | DRG 308 ==
LOC: ER 11:52 → CSU 15:12
PROVIDERS: Family Medicine; Admitting Provider Family Medicine; Family Provider Family Medicine; PCP Family Medicine; Visit Provider Family Medicine
DX: I48.91 Unspecified atrial fibrillation (principal); J96.01 Acute respiratory failure with hypoxia; I50.33 Acute on chronic diastolic (congestive) heart failure; H91.93 Unspecified hearing loss, bilateral; I34.0 Nonrheumatic mitral (valve) insufficiency; Z86.73 Personal history of transient ischemic attack (TIA), and cerebral infarction without residual deficits; I25.10 Atherosclerotic heart disease of native coronary artery without angina pectoris; E78.5 Hyperlipidemia, unspecified; K21.9 Gastro-esophageal reflux disease without esophagitis; Z87.891 Personal history of nicotine dependence; G89.29 Other chronic pain; M41.9 Scoliosis, unspecified; G47.33 Obstructive sleep apnea (adult) (pediatric); I34.1 Nonrheumatic mitral (valve) prolapse; K58.9 Irritable bowel syndrome, unspecified; M19.90 Unspecified osteoarthritis, unspecified site; I95.9 Hypotension, unspecified; Z79.82 Long term (current) use of aspirin
CPT/HCPCS: 12345; 36415; 71045; 80053; 80061; 81003; 83036; 83735; 83880; 84100; 84443; 84484; 85025; 85610; 85730; 93005; 93306; 94640; 96375; 97161; 97166; 97530; 97535; 99283; J1160; J1940; J3490

== ENCOUNTER → 2019-11-29 10:42 | Outpatient (BNVA) | payer MEDICARE, OTHER, SELFPAY | PROVIDERS: Family Provider Family Medicine; PCP Family Medicine; Visit Provider Internal Medicine Cardiovascular Disease | DX: Z79.899 Other long term (current) drug therapy (principal); I48.91 Unspecified atrial fibrillation | CPT/HCPCS: 80053; 80076; 84443; 85025 ==

== ENCOUNTER 2019-12-10 01:47 | Inpatient (IN) | payer MEDICARE, OTHER, SELFPAY ==
[2019-12-10] VITALS (95 sets, daily range): BP systolic 68–131; BP diastolic 38–99; PULSE 0–111; RESP 14–29; TEMP 36.6–37.3; O2SAT 88–100; BMI 20.9
--- NOTE | 2019-12-10 01:51 | XRR_ITS ---
PROCEDURE INFORMATION: Exam: XR Chest, 1 View Exam date and time: 12/10/2019 2:43 AM Age: 74 years old Clinical indication: Type not specified; Prior surgery; Surgery date: 6+ months; Surgery type: Low back surgery; Patient HX: C/O chest pain/ afib TECHNIQUE: Imaging protocol: XR of the chest Views: 1 view. COMPARISON: CR XR chest 1V portable [id number] 11/20/2019 11:29 AM FINDINGS: Lungs: The lungs are underinflated. No focal consolidation is seen. Pleural space: Unremarkable. No pleural effusion. No pneumothorax. Heart/Mediastinum: The cardiac silhouette is mildly enlarged, likely due to underlying cardiomegaly. Calcification of the mitral annulus is noted. Vasculature: Atherosclerotic calcifications are noted within the aortic arch. Bones/joints: Bone mineralization is decreased, suggestive of osteopenia. Several chronic left-sided rib fractures are noted. XR/XR chest 1V portable [id number] IMPRESSION: Stable cardiomegaly
--- NOTE | 2019-12-10 01:51 | ECG_ITS ---
[facility] Test Date: 2019-12-10 Pat Name: Parminder العراقي Department: Room: Gender: Male Calibration Technician: : 1945 Requested By: Ericka Anguiano Order Number: [id number] Nakul MD: Glenn Vieira M.D. Measurements Intervals [place] Rate: 62 P: NC: -1 QRS: -45 QRSD: 114 T: 0 QT: 423 QTc: 432 Interpretive Statements ATRIAL fibrillation LEFT ANTERIOR FASCICULAR BLOCK [QRS AXIS <= -45, QR IN I, RS IN II] POSSIBLE ANTERIOR MYOCARDIAL INFARCTION , PROBABLY OLD [30 ms Q WAVE IN V3/V4, OR R < 0.2 mV IN V4] Compared to ECG 11/20/2019 14:42:40 Left anterior fascicular block now present Myocardial infarct finding now present Electronically Signed On 12-10-2019 9:41:02 CDT by Glenn Vieira M.D. [email or web address]
--- NOTE | 2019-12-10 01:53 | ED_ITS ---
HPI - Arrhythmia/Palpitations General: Stated Complaint: afib Time Seen by Provider: 12/10/19 01:50 [facility] ED PFSH: Medical History (Updated 11/30/19 @ 08:59 by Charley Salazar MD) CAD (coronary artery disease) High risk medication use History of CVA (cerebrovascular accident) Hypertension Mitral valve regurgitation Obstructive sleep apnea Pelvic fracture Pneumothorax Severe mitral regurgitation Thoracic spine fracture Surgical History History of back surgery Family History Other CAD (coronary artery disease) Social History Smoking and tobacco status: former smoker Discharge Plan Discharge Prescriptions: No Action levothyroxine 25 mcg tablet 25 mcg PO DAILY Qty: 90 RF: 3 cetirizine 10 mg tablet 10 mg PO DAILY RF: 0 sucralfate 1 gram tablet 1 g PO QID RF: 0 pravastatin 80 mg tablet 80 mg PO DAILY RF: 0 tamsulosin 0.4 mg capsule 0.8 mg PO DAILY RF: 0 dicyclomine 20 mg tablet 20 mg PO QID RF: 0 baclofen 10 mg tablet 10 mg PO TID PRN (Reason: Pain) RF: 0 pantoprazole 40 mg tablet,delayed release (DR/EC) 40 mg PO BID RF: 0 trazodone 150 mg tablet 150 mg PO BEDTIME RF: 0 Colace 100 mg Capsule 100 mg PO BID RF: 0 gabapentin 300 mg capsule 300 mg PO BID RF: 0 aspirin 81 mg Tablet,Chewable 81 mg PO DAILY RF: 0 montelukast 10 mg tablet 10 mg PO DAILY RF: 0 hydromorphone 4 mg tablet 4 mg PO TID PRN (Reason: Pain) RF: 0 Symbicort 160-4.5 mcg/actuation HFA aerosol inhaler 2 puff INHALATION BID RF: 0 Linzess 145 mcg Capsule 145 mcg PO DAILY RF: 0 furosemide 40 mg Tablet 40 mg PO BID@08,16 30 Days Qty: 60 RF: 0 Pacerone 200 mg Tablet 400 mg PO DAILY 30 Days Qty: 30 RF: 0 metoprolol tartrate 50 mg Tablet 50 mg PO BID 30 Days Qty: 60 RF: 0 Eliquis 5 mg Tablet 5 mg PO BID 30 Days Qty: 60 RF: 0 potassium chloride 20 mEq tablet extended release 20 meq PO BID 30 Days Qty: 60 RF: 0 Coding Level of Care Code ED Drawbench Operator for Jeffrey Stanley
[2019-12-10 02:07] LABS: Basophils % 0.1 %; Hematocrit 41.8 % (42.0-52.0); Hemoglobin 13.9 g/dL (11.7-16.6); Lymphocytes # 1.7 10^3/uL (0.8-4.8); Lymphocytes % 20.4 %; Mean Corpuscular HGB Conc 33.3 g/dL (30.0-36.0); Mean Corpuscular Hemoglobin 32.1 pg (28.0-34.0); Mean Corpuscular Volume 96.5 fL (80-94); Mean Platelet Volume 11.1 fL (7.4-10.4); Monocytes # 0.7 10^3/uL (0.2-0.9); Monocytes % 8.9 %; Neutrophils # 5.8 10^3/uL (1.8-7.7); Neutrophils % 69.9 %; Nucleated Red Blood Cells % 0 %; Platelet Count 207 10^3/cmm (130-400); Red Blood Count 4.33 10^6/uL (4.1-5.3); Red Cell Distribution Width 14.3 % (12.1-15.1); White Blood Count 8.3 10^3/uL (4.0-10.0)
--- NOTE | 2019-12-10 02:08 | CTR_ITS ---
PROCEDURE INFORMATION: Exam: CT Head Without Contrast Exam date and time: 12/10/2019 2:09 AM Age: 74 years old Clinical indication: Altered mental status/memory loss; Confusion or disorientation; Additional info: AMS TECHNIQUE: Imaging protocol: Computed tomography of the head without contrast. Radiation optimization: All CT scans at this facility use at least one of these dose optimization techniques: automated exposure control; mA and/or kV adjustment per patient size (includes targeted exams where dose is matched to clinical indication); or iterative reconstruction. COMPARISON: CT head wo con* [id number] 06/30/2016 7:20 AM RADIATION DOSE METRICS: Total DLP (mGy-cm): 1146.43 FINDINGS: Brain: No acute intracranial hemorrhage or mass effect. There is decreased attenuation in the periventricular white matter, likely from microvascular disease. There is a small old lacunar infarct in the right thalamus, unchanged. No definite acute infarct by CT. MRI could be more sensitive/specific for detection, as clinically directed. Ventricles: Ventricle size is normal for age. Bones/joints: No definite acute skull fracture. Sinuses: Included paranasal sinuses are essentially clear. Mastoid air cells: No significant acute finding. Vasculature: Vascular calcifications in the internal carotid and vertebral basilar systems. CT/CT head wo con* [id number] IMPRESSION: 1. No acute intracranial hemorrhage or mass effect. 2. Changes of microvascular disease, and old right lacunar infarct. 3. No definite acute infarct by CT, see above. 4. Other findings discussed above. 5. Some limitations due to artifact from patient motion. Radiation Dose CTDIVOL = (mGy): DLP = 1146.43 (mGy-cm)
--- NOTE | 2019-12-10 02:09 | ED_ITS ---
Documented by User: SUPRIYA Hyatt 12/12/19 07:27 HPI - SOB/Dyspnea General: Chief Complaint: Shortness of Breath/Dyspnea Stated Complaint: afib Time Seen by Provider: 12/10/19 01:50 Source: family (granddaughter) Mode of arrival: EMS Limitations: language barrier (pt is completely deaf) History of Present Illness: HPI Narrative: Patient is a 74-year-old male with a history of severe mitral regurg, history of CVA, hypertension, CAD, hyperlipidemia, CHF, and GERD here along with his granddaughter for complaints of worsening shortness of breath and altered mental status. Patient is completely deaf thus most of patient's history is obtained from the granddaughter. Patient is able to communicate by writing things on a dry erase board. He can also follow commands this way. Granddaughter states over the past few days he has been complaining of shortness of breath. Granddaughter also states that patient has seemed confused and altered-he has been accusing his of random things, forgetting how to do things around the house, etc. Granddaughter states at one time he might have been diagnosed with some mild dementia but is normally very alert and oriented. Patient was recently admitted to the hospital earlier this month for acute respiratory failure with hypoxia secondary to heart failure exacerbation and a fib with RVR . He has followed up with cardiology since that visit. Last echo completed this month while in hospital. MD elicited complaint: shortness of breath Pertinent past history: congestive heart failure and other (mitral valve regurg, CAD, atrial fibrillation ) Onset (ago): day(s) Associated symptoms: Reports chest pain; Deny extremity pain, fever(s), hemoptysis, lightheadedness, nausea, syncope or vomiting Review of Systems Const: Denies: fever(s), chills or body aches Card: Reports: chest pain and irregular heart rhythm (known atrial fibrillation ); Denies: edema, lightheadedness, syncope or pre-syncope Resp: Reports: dyspnea; Denies: productive cough or hemoptysis GI: Denies: nausea or vomiting : Denies: flank pain, difficulty urinating, dysuria, urinary frequency or urinary urgency Musc: Denies: neck pain, back pain, extremity pain, extremity swelling, joint pain or joint swelling Skin/Breast: Denies: rash Neuro: Denies: headache(s), numbness in extremities, weakness in extremities or sensory changes [facility] ED PFSH: Medical History CAD (coronary artery disease) High risk medication use History of CVA (cerebrovascular accident) Hypertension Mitral valve regurgitation Obstructive sleep apnea Pelvic fracture Pneumothorax Severe mitral regurgitation Thoracic spine fracture Surgical History History of back surgery Family History Other CAD (coronary artery disease) Social History (Updated 12/10/19 @ 05:11 by Lino Jeffery MD) Smoking and tobacco status: never smoked Alcohol intake: never Substance/Drug Use: never Household members: family Housing: House Physical Exam Const: COMMON NORMALS: no acute distress, patient oriented x3 and alert GENERAL APPEARANCE: cooperative and frail appearing ORIENTATION/CONSCIOUSNESS: Yes awake OTHER: pt slumped over/poor posture that granddaughter states is normal for him due to previous back/truncal injuries; pt will follow commands such as raising legs/arms, leaning forward, etc when he reads the commands on his dry erase board; he does appear drowsy-grand daughter states she believes he is just tired HENMT: COMMON NORMALS: normocephalic and atraumatic HEAD & SCALP: normocephalic and atraumatic Neck/C-Spine: COMMON NORMALS: full ROM, no lymphadenopathy and no meningeal signs Chest: COMMONS NORMALS: normal inspection of the chest and normal palpation of entire chest wall Cardio: COMMON NORMALS: regular rate RATE: regular rate RHYTHM: abnormal rhythm HEART SOUNDS: Murmur heart sound present GI: COMMON NORMALS: Normal to inspection, nondistended, normoactive bowel sounds present, Soft to palpation, non-tender, No hepatosplenomegaly present and no masses PALPATION: Yes Soft to palpation and Yes No hepatosplenomegaly present Extremity: COMMON NORMALS: full ROM and capillary refill normal GENERAL: Yes normal exam except as noted OTHER: pt with very mild bilateral LE non- pitting edema Neuro: COMMON NORMALS: patient oriented x3, moves all extremities and no focal motor deficits SENSORIUM/ORIENTATION: Yes alert MENINGEAL SIGNS: Yes no meningeal signs GAIT: Yes Unable to assess gait Skin: COMMON NORMALS: no rashes or lesions noted GENERAL SKIN EXAM: no rashes or lesions noted Course Vital Signs: Vital signs: Vital Signs Temperature 97.8 F 12/12/19 04:00 Pulse Rate 103 H 12/12/19 06:00 Respiratory Rate 18 12/12/19 06:00 Blood Pressure 97/58 12/12/19 06:00 Pulse Oximetry 96 12/12/19 06:00 MDM - SOB/Dyspnea Lab Data: Labs: Lab Results 12/10/19 12/10/19 12/10/19 Range/Units 01:30 01:30 01:30 WBC 8.3 (4.0-10.0) 10^3/ uL RBC 4.33 (4.1-5.3) 10^6/u L Hgb 13.9 (11.7-16.6) g/dL Hct 41.8 L (42.0-52.0) % MCV 96.5 H (80-94) fL MCH 32.1 (28.0-34.0) pg MCHC 33.3 (30.0-36.0) g/dL RDW 14.3 (12.1-15.1) % Plt Count 207 (130-400) 10^3/c mm MPV 11.1 H (7.4-10.4) fL Neut % (Auto) 69.9 % Lymph % (Auto) 20.4 % [place] % (Auto) 8.9 % Eos % (Auto) 0.0 % Baso % (Auto) 0.1 % Neut # (Auto) 5.8 (1.8-7.7) 10^3/u L Lymph # (Auto) 1.7 (0.8-4.8) 10^3/u L [place] # (Auto) 0.7 (0.2-0.9) 10^3/u L Eos # (Auto) 0.0 (0.0-0.8) 10^3/u L Baso # (Auto) 0.0 (0.0-0.1) 10^3/u L Nucleated RBC % (a uto) 0 % Nucleated RBCs # 0.0 /100WBC Specimen Type Sample Site ABG pH (7.35-7.45) ABG pCO2 (35-45) mmHg ABG pO2 (80.0-100.0) mmH g ABG HCO3 (22-26) mmol/L ABG Base Excess (-2.0-2.0) mmol/ L [place] Test Hematocrit (42-52) % O2 Delivery Device Pouring Crane Operator ID Sodium 131 L (136-145) mmol/L Potassium 5.2 H (3.5-5.1) mmol/L Chloride 87 L (98-107) mmol/L Carbon Dioxide 34 H (22-29) mmol/L Anion Gap 15.2 (5-19) BUN 17 (8-23) mg/dL Creatinine 0.8 (0.7-1.2) mg/dL Glucose 156 H (65-115) mg/dL Calculated Osmolal ity 272 L (285-295) mOsm/k g Lactate (0.5-2.2) mmol/L Calcium 10.0 (8.5-10.5) mg/dL Total Bilirubin 0.6 (0.15-1.2) mg/dL AST 19 (0-40) U/L ALT 29 (0-41) U/L Alkaline Phosphata se 134 H (40-130) IU/L Troponin T Baselin e 17 H (0-15) ng/L Troponin T 120 Min yurok (0-15) ng/L Delta Troponin T (0-10) ABS# NT-Pro-B Natriuret Pep 4136 H (0-450) pg/mL Total Protein 6.2 L (6.6-8.7) g/dL Albumin 4.5 (3.5-5.2) g/dL Globulin 1.7 (1.3-4.6) g/dL Procalcitonin (0-0.5) ng/mL TSH 10.14 H (0.27-4.20) uIU/ mL Free T4 (0.82-1.77) ng/d L Free T3 (2.0-4.4) PG/ML Random Cortisol (2.47-19.5) ug/m L Urine Color (Yellow) Urine Appearance (CLEAR) Urine pH (5-7) Ur Specific Gravit y (1.005-1.030) Urine Protein (Negative) Urine Glucose (UA) (Normal) Urine Ketones (Negative) Urine Blood (Negative) Urine Nitrate (Negative) Urine Bilirubin (NEGATIVE) Urine Urobilinogen (Negative) mg/dL Ur Leukocyte Heidy ase (Negative) 12/10/19 12/10/19 12/10/19 Range/Units 01:30 02:16 03:25 WBC (4.0-10.0) 10^3/ uL RBC (4.1-5.3) 10^6/u L Hgb (11.7-16.6) g/dL Hct (42.0-52.0) % MCV (80-94) fL MCH (28.0-34.0) pg MCHC (30.0-36.0) g/dL RDW (12.1-15.1) % Plt Count (130-400) 10^3/c mm MPV (7.4-10.4) fL Neut % (Auto) % Lymph % (Auto) % [place] % (Auto) % Eos % (Auto) % Baso % (Auto) % Neut # (Auto) (1.8-7.7) 10^3/u L Lymph # (Auto) (0.8-4.8) 10^3/u L [place] # (Auto) (0.2-0.9) 10^3/u L Eos # (Auto) (0.0-0.8) 10^3/u L Baso # (Auto) (0.0-0.1) 10^3/u L Nucleated RBC % (a uto) % Nucleated RBCs # /100WBC Specimen Type Arterial Sample Site Radial, right ABG pH 7.33 L (7.35-7.45) ABG pCO2 66.7 H* (35-45) mmHg ABG pO2 63.1 L (80.0-100.0) mmH g ABG HCO3 35.3 H (22-26) mmol/L ABG Base Excess 7.2 H (-2.0-2.0) mmol/ L [place] Test Pos Hematocrit 38.8 L (42-52) % O2 Delivery Device Nc Pouring Crane Operator ID ellpe Sodium (136-145) mmol/L Potassium (3.5-5.1) mmol/L Chloride (98-107) mmol/L Carbon Dioxide (22-29) mmol/L Anion Gap (5-19) BUN (8-23) mg/dL Creatinine (0.7-1.2) mg/dL Glucose (65-115) mg/dL Calculated Osmolal ity (285-295) mOsm/k g Lactate 1.0 (0.5-2.2) mmol/L Calcium (8.5-10.5) mg/dL Total Bilirubin (0.15-1.2) mg/dL AST (0-40) U/L ALT (0-41) U/L Alkaline Phosphata se (40-130) IU/L Troponin T Baselin e (0-15) ng/L Troponin T 120 Min y[place]k (0-15) ng/L Delta Troponin T (0-10) ABS# NT-Pro-B Natriuret Pep (0-450) pg/mL Total Protein (6.6-8.7) g/dL Albumin (3.5-5.2) g/dL Globulin (1.3-4.6) g/dL Procalcitonin (0-0.5) ng/mL TSH (0.27-4.20) uIU/ mL Free T4 (0.82-1.77) ng/d L Free T3 (2.0-4.4) PG/ML Random Cortisol 56.79 H (2.47-19.5) ug/m L Urine Color (Yellow) Urine Appearance (CLEAR) Urine pH (5-7) Ur Specific Gravit y (1.005-1.030) Urine Protein (Negative) Urine Glucose (UA) (Normal) Urine Ketones (Negative) Urine Blood (Negative) Urine Nitrate (Negative) Urine Bilirubin (NEGATIVE) Urine Urobilinogen (Negative) mg/dL Ur Leukocyte Heidy ase (Negative) 12/10/19 12/10/19 12/10/19 Range/Units 03:34 03:34 03:54 WBC (4.0-10.0) 10^3/ uL RBC (4.1-5.3) 10^6/u L Hgb (11.7-16.6) g/dL Hct (42.0-52.0) % MCV (80-94) fL MCH (28.0-34.0) pg MCHC (30.0-36.0) g/dL RDW (12.1-15.1) % Plt Count (130-400) 10^3/c mm MPV (7.4-10.4) fL Neut % (Auto) % Lymph % (Auto) % [place] % (Auto) % Eos % (Auto) % Baso % (Auto) % Neut # (Auto) (1.8-7.7) 10^3/u L Lymph # (Auto) (0.8-4.8) 10^3/u L [place] # (Auto) (0.2-0.9) 10^3/u L Eos # (Auto) (0.0-0.8) 10^3/u L Baso # (Auto) (0.0-0.1) 10^3/u L Nucleated RBC % (a uto) % Nucleated RBCs # /100WBC Specimen Type Sample Site ABG pH (7.35-7.45) ABG pCO2 (35-45) mmHg ABG pO2 (80.0-100.0) mmH g ABG HCO3 (22-26) mmol/L ABG Base Excess (-2.0-2.0) mmol/ L [place] Test Hematocrit (42-52) % O2 Delivery Device Pouring Crane Operator ID Sodium (136-145) mmol/L Potassium (3.5-5.1) mmol/L Chloride (98-107) mmol/L Carbon Dioxide (22-29) mmol/L Anion Gap (5-19) BUN (8-23) mg/dL Creatinine (0.7-1.2) mg/dL Glucose (65-115) mg/dL Calculated Osmolal ity (285-295) mOsm/k g Lactate (0.5-2.2) mmol/L Calcium (8.5-10.5) mg/dL Total Bilirubin (0.15-1.2) mg/dL AST (0-40) U/L ALT (0-41) U/L Alkaline Phosphata se (40-130) IU/L Troponin T Baselin e (0-15) ng/L Troponin T 120 Min yurok 16.34 H (0-15) ng/L Delta Troponin T -0.66 L (0-10) ABS# NT-Pro-B Natriuret Pep (0-450) pg/mL Total Protein (6.6-8.7) g/dL Albumin (3.5-5.2) g/dL Globulin (1.3-4.6) g/dL Procalcitonin 0.05 (0-0.5) ng/mL TSH (0.27-4.20) uIU/ mL Free T4 1.26 (0.82-1.77) ng/d L Free T3 1.3 L (2.0-4.4) PG/ML Random Cortisol (2.47-19.5) ug/m L Urine Color (Yellow) Urine Appearance (CLEAR) Urine pH (5-7) Ur Specific Gravit y (1.005-1.030) Urine Protein (Negative) Urine Glucose (UA) (Normal) Urine Ketones (Negative) Urine Blood (Negative) Urine Nitrate (Negative) Urine Bilirubin (NEGATIVE) Urine Urobilinogen (Negative) mg/dL Ur Leukocyte Heidy ase (Negative) 12/10/19 12/10/19 Range/Units 04:06 04:11 WBC (4.0-10.0) 10^3/ uL RBC (4.1-5.3) 10^6/u L Hgb (11.7-16.6) g/dL Hct (42.0-52.0) % MCV (80-94) fL MCH (28.0-34.0) pg MCHC (30.0-36.0) g/dL RDW (12.1-15.1) % Plt Count (130-400) 10^3/c mm MPV (7.4-10.4) fL Neut % (Auto) % Lymph % (Auto) % [place] % (Auto) % Eos % (Auto) % Baso % (Auto) % Neut # (Auto) (1.8-7.7) 10^3/u L Lymph # (Auto) (0.8-4.8) 10^3/u L [place] # (Auto) (0.2-0.9) 10^3/u L Eos # (Auto) (0.0-0.8) 10^3/u L Baso # (Auto) (0.0-0.1) 10^3/u L Nucleated RBC % (a uto) % Nucleated RBCs # /100WBC Specimen Type Arterial Sample Site Radial, left ABG pH 7.27 L (7.35-7.45) ABG pCO2 80.2 H* (35-45) mmHg ABG pO2 90.5 (80.0-100.0) mmH g ABG HCO3 36.5 H (22-26) mmol/L ABG Base Excess 6.8 H (-2.0-2.0) mmol/ L [place] Test Pos Hematocrit 38.1 L (42-52) % O2 Delivery Device Pouring Crane Operator ID ellpe Sodium (136-145) mmol/L Potassium (3.5-5.1) mmol/L Chloride (98-107) mmol/L Carbon Dioxide (22-29) mmol/L Anion Gap (5-19) BUN (8-23) mg/dL Creatinine (0.7-1.2) mg/dL Glucose (65-115) mg/dL Calculated Osmolal ity (285-295) mOsm/k g Lactate (0.5-2.2) mmol/L Calcium (8.5-10.5) mg/dL Total Bilirubin (0.15-1.2) mg/dL AST (0-40) U/L ALT (0-41) U/L Alkaline Phosphata se (40-130) IU/L Troponin T Baselin e (0-15) ng/L Troponin T 120 Min y[place]k (0-15) ng/L Delta Troponin T (0-10) ABS# NT-Pro-B Natriuret Pep (0-450) pg/mL Total Protein (6.6-8.7) g/dL Albumin (3.5-5.2) g/dL Globulin (1.3-4.6) g/dL Procalcitonin (0-0.5) ng/mL TSH (0.27-4.20) uIU/ mL Free T4 (0.82-1.77) ng/d L Free T3 (2.0-4.4) PG/ML Random Cortisol (2.47-19.5) ug/m L Urine Color Yellow (Yellow) Urine Appearance Clear (CLEAR) Urine pH 7 (5-7) Ur Specific Gravit y 1.005 (1.005-1.030) Urine Protein Neg (Negative) Urine Glucose (UA) Norm (Normal) Urine Ketones Negative (Negative) Urine Blood Neg (Negative) Urine Nitrate Negative (Negative) Urine Bilirubin Neg (NEGATIVE) Urine Urobilinogen 1 H (Negative) mg/dL Ur Leukocyte Heidy ase Negative (Negative) Discharge Plan Discharge Admit Provider: Lino Jeffery Discharge Date/Time: 12/10/19 07:08 Coding Level of Care Code ED And Rescue [employer] Cr[employer] Fire for Chg Fwd Exam Comprehensive Documented by User: Tobi Dang DO 12/10/19 05:19 HPI - SOB/Dyspnea General: Chief Complaint: Shortness of Breath/Dyspnea Stated Complaint: afib Time Seen by Provider: 12/10/19 01:50 PFSH ED PFSH: Medical History CAD (coronary artery disease) High risk medication use History of CVA (cerebrovascular accident) Hypertension Mitral valve regurgitation Obstructive sleep apnea Pelvic fracture Pneumothorax Severe mitral regurgitation Thoracic spine fracture Surgical History History of back surgery Family History Other CAD (coronary artery disease) Social History (Updated 12/10/19 @ 05:11 by Lino Jeffery MD) Smoking and tobacco status: never smoked Alcohol intake: never Substance/Drug Use: never Household members: family Housing: House Procedures Intubation Time out performed: No sedative: Etomidate Mg Given: 20 paralytic: Rocuronium Mg Given: 40 Laryngoscope: Vilma ET Tube Size: 8 ET Tube Uncuffed: No Tube Secured Depth (cm): 27 Tube Secured Location: lips Tube Placement Confirmation: visualized tube passing through cords, equal breath sounds bilaterally and confirmation by capnometry Patient Tolerated Procedure: well and no complications Intubation Complications: none Additional Comments: I assisted Dr. Jeffery with the intubation. Course Vital Signs: Vital signs: Vital Signs Temperature 97.8 F 12/12/19 04:00 Pulse Rate 103 H 12/12/19 06:00 Respiratory Rate 18 12/12/19 06:00 Blood Pressure 97/58 12/12/19 06:00 Pulse Oximetry 96 12/12/19 06:00 MDM - SOB/Dyspnea MDM Narrative: Medical decision making narrative: 74-year-old male presents with atrial fibrillation, heart failure, and lethargy. He was originally seen by Mrs. ChandlerAVELINA Umana. I agree with her initial history, exam, work-up, and treatment. The patient was checked out to me at shift change. He began to progressively get more lethargic. So much so that he was difficult and then non-arousable. His granddaughter stated that he had taken Dilaudid 12 hours or so ago. 0.4 mg of Narcan were given without improvement in his mental status. Blood gas was repeated, as his initial blood gas showed mild acidosis with increased CO2. The second blood gas showed worsening. This was thought to be the source of his worsening mental status and decompensation. Decision was made to RSI the patient and intubate him, placing him on the ventilator. This was done without complication. Rocuronium was used due to mild hyperkalemia. He will go to the ICU. Lab Data: Labs: Lab Results 12/10/19 12/10/19 12/10/19 Range/Units 01:30 01:30 01:30 WBC 8.3 (4.0-10.0) 10^3/ uL RBC 4.33 (4.1-5.3) 10^6/u L Hgb 13.9 (11.7-16.6) g/dL Hct 41.8 L (42.0-52.0) % MCV 96.5 H (80-94) fL MCH 32.1 (28.0-34.0) pg MCHC 33.3 (30.0-36.0) g/dL RDW 14.3 (12.1-15.1) % Plt Count 207 (130-400) 10^3/c mm MPV 11.1 H (7.4-10.4) fL Neut % (Auto) 69.9 % Lymph % (Auto) 20.4 % [place] % (Auto) 8.9 % Eos % (Auto) 0.0 % Baso % (Auto) 0.1 % Neut # (Auto) 5.8 (1.8-7.7) 10^3/u L Lymph # (Auto) 1.7 (0.8-4.8) 10^3/u L [place] # (Auto) 0.7 (0.2-0.9) 10^3/u L Eos # (Auto) 0.0 (0.0-0.8) 10^3/u L Baso # (Auto) 0.0 (0.0-0.1) 10^3/u L Nucleated RBC % (a uto) 0 % Nucleated RBCs # 0.0 /100WBC Specimen Type Sample Site ABG pH (7.35-7.45) ABG pCO2 (35-45) mmHg ABG pO2 (80.0-100.0) mmH g ABG HCO3 (22-26) mmol/L ABG Base Excess (-2.0-2.0) mmol/ L [place] Test Hematocrit (42-52) % O2 Delivery Device Pouring Crane Operator ID Sodium 131 L (136-145) mmol/L Potassium 5.2 H (3.5-5.1) mmol/L Chloride 87 L (98-107) mmol/L Carbon Dioxide 34 H (22-29) mmol/L Anion Gap 15.2 (5-19) BUN 17 (8-23) mg/dL Creatinine 0.8 (0.7-1.2) mg/dL Glucose 156 H (65-115) mg/dL Calculated Osmolal ity 272 L (285-295) mOsm/k g Lactate (0.5-2.2) mmol/L Calcium 10.0 (8.5-10.5) mg/dL Total Bilirubin 0.6 (0.15-1.2) mg/dL AST 19 (0-40) U/L ALT 29 (0-41) U/L Alkaline Phosphata se 134 H (40-130) IU/L Troponin T Baselin e 17 H (0-15) ng/L Troponin T 120 Min [place] (0-15) ng/L Delta Troponin T (0-10) ABS# NT-Pro-B Natriuret Pep 4136 H (0-450) pg/mL Total Protein 6.2 L (6.6-8.7) g/dL Albumin 4.5 (3.5-5.2) g/dL Globulin 1.7 (1.3-4.6) g/dL Procalcitonin (0-0.5) ng/mL TSH 10.14 H (0.27-4.20) uIU/ mL Free T4 (0.82-1.77) ng/d L Free T3 (2.0-4.4) PG/ML Random Cortisol (2.47-19.5) ug/m L Urine Color (Yellow) Urine Appearance (CLEAR) Urine pH (5-7) Ur Specific Gravit y (1.005-1.030) Urine Protein (Negative) Urine Glucose (UA) (Normal) Urine Ketones (Negative) Urine Blood (Negative) Urine Nitrate (Negative) Urine Bilirubin (NEGATIVE) Urine Urobilinogen (Negative) mg/dL Ur Leukocyte Heidy ase (Negative) 12/10/19 12/10/19 12/10/19 Range/Units 01:30 02:16 03:25 WBC (4.0-10.0) 10^3/ uL RBC (4.1-5.3) 10^6/u L Hgb (11.7-16.6) g/dL Hct (42.0-52.0) % MCV (80-94) fL MCH (28.0-34.0) pg MCHC (30.0-36.0) g/dL RDW (12.1-15.1) % Plt Count (130-400) 10^3/c mm MPV (7.4-10.4) fL Neut % (Auto) % Lymph % (Auto) % [place] % (Auto) % Eos % (Auto) % Baso % (Auto) % Neut # (Auto) (1.8-7.7) 10^3/u L Lymph # (Auto) (0.8-4.8) 10^3/u L [place] # (Auto) (0.2-0.9) 10^3/u L Eos # (Auto) (0.0-0.8) 10^3/u L Baso # (Auto) (0.0-0.1) 10^3/u L Nucleated RBC % (a uto) % Nucleated RBCs # /100WBC Specimen Type Arterial Sample Site Radial, right ABG pH 7.33 L (7.35-7.45) ABG pCO2 66.7 H* (35-45) mmHg ABG pO2 63.1 L (80.0-100.0) mmH g ABG HCO3 35.3 H (22-26) mmol/L ABG Base Excess 7.2 H (-2.0-2.0) mmol/ L [place] Test Pos Hematocrit 38.8 L (42-52) % O2 Delivery Device Nc Pouring Crane Operator ID ellpe Sodium (136-145) mmol/L Potassium (3.5-5.1) mmol/L Chloride (98-107) mmol/L Carbon Dioxide (22-29) mmol/L Anion Gap (5-19) BUN (8-23) mg/dL Creatinine (0.7-1.2) mg/dL Glucose (65-115) mg/dL Calculated Osmolal ity (285-295) mOsm/k g Lactate 1.0 (0.5-2.2) mmol/L Calcium (8.5-10.5) mg/dL Total Bilirubin (0.15-1.2) mg/dL AST (0-40) U/L ALT (0-41) U/L Alkaline Phosphata se (40-130) IU/L Troponin T Baselin e (0-15) ng/L Troponin T 120 Min [place] (0-15) ng/L Delta Troponin T (0-10) ABS# NT-Pro-B Natriuret Pep (0-450) pg/mL Total Protein (6.6-8.7) g/dL Albumin (3.5-5.2) g/dL Globulin (1.3-4.6) g/dL Procalcitonin (0-0.5) ng/mL TSH (0.27-4.20) uIU/ mL Free T4 (0.82-1.77) ng/d L Free T3 (2.0-4.4) PG/ML Random Cortisol 56.79 H (2.47-19.5) ug/m L Urine Color (Yellow) Urine Appearance (CLEAR) Urine pH (5-7) Ur Specific Gravit y (1.005-1.030) Urine Protein (Negative) Urine Glucose (UA) (Normal) Urine Ketones (Negative) Urine Blood (Negative) Urine Nitrate (Negative) Urine Bilirubin (NEGATIVE) Urine Urobilinogen (Negative) mg/dL Ur Leukocyte Heidy ase (Negative) 12/10/19 12/10/19 12/10/19 Range/Units 03:34 03:34 03:54 WBC (4.0-10.0) 10^3/ uL RBC (4.1-5.3) 10^6/u L Hgb (11.7-16.6) g/dL Hct (42.0-52.0) % MCV (80-94) fL MCH (28.0-34.0) pg MCHC (30.0-36.0) g/dL RDW (12.1-15.1) % Plt Count (130-400) 10^3/c mm MPV (7.4-10.4) fL Neut % (Auto) % Lymph % (Auto) % [place] % (Auto) % Eos % (Auto) % Baso % (Auto) % Neut # (Auto) (1.8-7.7) 10^3/u L Lymph # (Auto) (0.8-4.8) 10^3/u L [place] # (Auto) (0.2-0.9) 10^3/u L Eos # (Auto) (0.0-0.8) 10^3/u L Baso # (Auto) (0.0-0.1) 10^3/u L Nucleated RBC % (a uto) % Nucleated RBCs # /100WBC Specimen Type Sample Site ABG pH (7.35-7.45) ABG pCO2 (35-45) mmHg ABG pO2 (80.0-100.0) mmH g ABG HCO3 (22-26) mmol/L ABG Base Excess (-2.0-2.0) mmol/ L [place] Test Hematocrit (42-52) % O2 Delivery Device Pouring Crane Operator ID Sodium (136-145) mmol/L Potassium (3.5-5.1) mmol/L Chloride (98-107) mmol/L Carbon Dioxide (22-29) mmol/L Anion Gap (5-19) BUN (8-23) mg/dL Creatinine (0.7-1.2) mg/dL Glucose (65-115) mg/dL Calculated Osmolal ity (285-295) mOsm/k g Lactate (0.5-2.2) mmol/L Calcium (8.5-10.5) mg/dL Total Bilirubin (0.15-1.2) mg/dL AST (0-40) U/L ALT (0-41) U/L Alkaline Phosphata se (40-130) IU/L Troponin T Baselin e (0-15) ng/L Troponin T 120 Min yurok 16.34 H (0-15) ng/L Delta Troponin T -0.66 L (0-10) ABS# NT-Pro-B Natriuret Pep (0-450) pg/mL Total Protein (6.6-8.7) g/dL Albumin (3.5-5.2) g/dL Globulin (1.3-4.6) g/dL Procalcitonin 0.05 (0-0.5) ng/mL TSH (0.27-4.20) uIU/ mL Free T4 1.26 (0.82-1.77) ng/d L Free T3 1.3 L (2.0-4.4) PG/ML Random Cortisol (2.47-19.5) ug/m L Urine Color (Yellow) Urine Appearance (CLEAR) Urine pH (5-7) Ur Specific Gravit y (1.005-1.030) Urine Protein (Negative) Urine Glucose (UA) (Normal) Urine Ketones (Negative) Urine Blood (Negative) Urine Nitrate (Negative) Urine Bilirubin (NEGATIVE) Urine Urobilinogen (Negative) mg/dL Ur Leukocyte Heidy ase (Negative) 12/10/19 12/10/19 Range/Units 04:06 04:11 WBC (4.0-10.0) 10^3/ uL RBC (4.1-5.3) 10^6/u L Hgb (11.7-16.6) g/dL Hct (42.0-52.0) % MCV (80-94) fL MCH (28.0-34.0) pg MCHC (30.0-36.0) g/dL RDW (12.1-15.1) % Plt Count (130-400) 10^3/c mm MPV (7.4-10.4) fL Neut % (Auto) % Lymph % (Auto) % [place] % (Auto) % Eos % (Auto) % Baso % (Auto) % Neut # (Auto) (1.8-7.7) 10^3/u L Lymph # (Auto) (0.8-4.8) 10^3/u L [place] # (Auto) (0.2-0.9) 10^3/u L Eos # (Auto) (0.0-0.8) 10^3/u L Baso # (Auto) (0.0-0.1) 10^3/u L Nucleated RBC % (a uto) % Nucleated RBCs # /100WBC Specimen Type Arterial Sample Site Radial, left ABG pH 7.27 L (7.35-7.45) ABG pCO2 80.2 H* (35-45) mmHg ABG pO2 90.5 (80.0-100.0) mmH g ABG HCO3 36.5 H (22-26) mmol/L ABG Base Excess 6.8 H (-2.0-2.0) mmol/ L [place] Test Pos Hematocrit 38.1 L (42-52) % O2 Delivery Device Pouring Crane Operator ID ellpe Sodium (136-145) mmol/L Potassium (3.5-5.1) mmol/L Chloride (98-107) mmol/L Carbon Dioxide (22-29) mmol/L Anion Gap (5-19) BUN (8-23) mg/dL Creatinine (0.7-1.2) mg/dL Glucose (65-115) mg/dL Calculated Osmolal ity (285-295) mOsm/k g Lactate (0.5-2.2) mmol/L Calcium (8.5-10.5) mg/dL Total Bilirubin (0.15-1.2) mg/dL AST (0-40) U/L ALT (0-41) U/L Alkaline Phosphata se (40-130) IU/L Troponin T Baselin e (0-15) ng/L Troponin T 120 Min y[place]k (0-15) ng/L Delta Troponin T (0-10) ABS# NT-Pro-B Natriuret Pep (0-450) pg/mL Total Protein (6.6-8.7) g/dL Albumin (3.5-5.2) g/dL Globulin (1.3-4.6) g/dL Procalcitonin (0-0.5) ng/mL TSH (0.27-4.20) uIU/ mL Free T4 (0.82-1.77) ng/d L Free T3 (2.0-4.4) PG/ML Random Cortisol (2.47-19.5) ug/m L Urine Color Yellow (Yellow) Urine Appearance Clear (CLEAR) Urine pH 7 (5-7) Ur Specific Gravit y 1.005 (1.005-1.030) Urine Protein Neg (Negative) Urine Glucose (UA) Norm (Normal) Urine Ketones Negative (Negative) Urine Blood Neg (Negative) Urine Nitrate Negative (Negative) Urine Bilirubin Neg (NEGATIVE) Urine Urobilinogen 1 H (Negative) mg/dL Ur Leukocyte Heidy ase Negative (Negative) Discharge Plan Discharge Admit Provider: Lino Jeffery Discharge Date/Time: 12/10/19 07:08 Coding Level of Care Code ED And Rescue Fire Fighter Crash Fire for Chg Fwd Exam Comprehensive
[2019-12-10 02:22] LABS: Troponin(5th) Baseline 17 ng/L (0-15)
[2019-12-10 02:33] LABS: Alanine Aminotransferase 29 U/L (0-41); Albumin Level 4.5 g/dL (3.5-5.2); Alkaline Phosphatase 134 IU/L (40-130); Anion Gap 15.2 (5-19); Aspartate Amino Transferase 19 U/L (0-40); Blood Urea Nitrogen 17 mg/dL (8-23); Carbon Dioxide 34 mmol/L (22-29); Chloride 87 mmol/L (98-107); Globulin 1.7 g/dL (1.3-4.6); Glucose 156 mg/dL (65-115); NT Pro B Type Natriuretic Pept 4136 pg/mL (0-450); Osmolality Calculated 272 mOsm/kg (285-295); Potassium 5.2 mmol/L (3.5-5.1); Sodium 131 mmol/L (136-145); Thyroid Stimulating Hormone 10.14 uIU/mL (0.27-4.20); Total Bilirubin 0.6 mg/dL (0.15-1.2); Total Protein 6.2 g/dL (6.6-8.7)
[2019-12-10 03:37] LABS: ABG PH Result 7.33 (7.35-7.45); Arterial Blood Gas Hematocrit 38.8 % (42-52); Base Excess ABG 7.2 mmol/L (-2.0-2.0); Blood Gas Allen Test Pos; Blood Gas Sample Site Radial, right; Blood Gas Sample Type Arterial; HCO3 ABG 35.3 mmol/L (22-26); Oxygen Device NC; PO2 ABG 63.1 mmHg (80.0-100.0)
[2019-12-10 03:38] LABS: ABG PCO2 66.7 mmHg (35-45)
--- NOTE | 2019-12-10 03:51 | ECG_ITS ---
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 Measurements Intervals [place] Rate: 62 P: MS: -1 QRS: -45 QRSD: 114 T: 0 QT: 423 QTc: 432 Interpretive Statements ATRIAL fibrillation LEFT ANTERIOR FASCICULAR BLOCK [QRS AXIS <= -45, QR IN I, RS IN II] POSSIBLE ANTERIOR MYOCARDIAL INFARCTION , PROBABLY OLD [30 ms Q WAVE IN V3/V4, OR R < 0.2 mV IN V4] Compared to ECG 11/20/2019 14:42:40 Left anterior fascicular block now present Myocardial infarct finding now present Electronically Signed On 12-10-2019 9:41:48 CDT by Glenn Vieira M.D. [email or web address]/store/NU/[id number] f
[2019-12-10] MEDS: FUROsemide 10 mg/mL SDV 10mL 60 MG IVP (04:10)
[2019-12-10 04:16] LABS: Troponin 5 2HR 16.34 ng/L (0-15)
[2019-12-10 04:18] LABS: Troponin 5 2HR Delta -0.66 ABS# (0-10)
--- NOTE | 2019-12-10 04:18 | PM.HP ---
Providers/Chief Complaint Primary Care Provider: Joss Huddleston MD Chief Complaint: afib History of Present Illness Parminder العراقي is a 74 year old male past medical history of severe mitral regurgitation, deafness, hypertension, coronary disease, GERD, chronic anticoagulation for A. fib with [place], was brought in by the family for extreme lethargy. Granddaughter is at the bedside who is endorsing that for last few days he has been more lethargic, he has been sleeping all day, his communication which he normally does by writing on the board has decreased, his functional status has declined significantly. Daughter is at the bedside who is endorsing that he just started levothyroxine 1 week ago when he was seen at Dr. Salazar[facility] clinic at that point his amiodarone dose was decreased to 200 mg. At home he communicates via writing on a board. Lately he has been complaining about shortness of breath at rest and on exertion, granddaughter noticed that he he was constipated, lethargic, confused. He was compliant with his medications. No fever was noticed at home. Today because of worsening shortness of breath he was brought to the ER. In the ER on arrival he was able to communicate via writing but within few minutes his mentation changed in his breathing became shallow, blood gas showed worsening of respiratory acidosis, he was bradycardic, hypotensive, TSH 10 Decision was made to intubate, I intubated in presence of Dr. Dang in the emergency room, vocal cords were visualized after giving etomidate and rocuronium, ET tube passed on first attempt without any difficulty, bilateral breath sounds detected, end-tidal CO2 color change intact After intubation he was put on PRVC tidal volume 400, respiratory rate 14, PEEP 5, FiO2 40% He was saturating well, blood pressure 111/70, heart rate fluctuating between 70-1 01 A. fib Diagnosis also revealed congestive heart failure however clinically he looks dry Review of Systems General: Reports: ROS unobtainable due to endotracheal tube Medications/Allergies Home Medications Medication Instructions Recorded Confirmed Last Taken Type Colace 100 mg PO BID 11/20/19 11/20/19 11/20/19 History Linzess 145 mcg PO DAILY 11/20/19 11/20/19 11/20/19 History Symbicort 2 puff INHALATION BID 11/20/19 11/20/19 11/20/19 History aspirin 81 mg PO DAILY 11/20/19 11/20/19 11/20/19 History baclofen 10 mg PO TID PRN 11/20/19 11/20/19 11/20/19 History cetirizine 10 mg PO DAILY 11/20/19 11/20/19 11/20/19 History dicyclomine 20 mg PO QID 11/20/19 11/20/19 11/20/19 History gabapentin 300 mg PO BID 11/20/19 11/20/19 11/20/19 History hydromorphone 4 mg PO TID PRN 11/20/19 11/20/19 11/20/19 History montelukast 10 mg PO DAILY 11/20/19 11/20/19 11/20/19 History pantoprazole 40 mg PO BID 11/20/19 11/20/19 11/20/19 History pravastatin 80 mg PO DAILY 11/20/19 11/20/19 11/19/19 History sucralfate 1 g PO QID 11/20/19 11/20/19 11/20/19 History tamsulosin 0.8 mg PO DAILY 11/20/19 11/20/19 11/20/19 History trazodone 150 mg PO BEDTIME 11/20/19 11/20/19 11/19/19 History amiodarone [Pacerone] 400 mg PO DAILY 30 Days #30 tab 11/25/19 Unknown Rx apixaban [Eliquis] 5 mg PO BID 30 Days #60 tab 11/25/19 Unknown Rx furosemide 40 mg PO BID@08,16 30 Days #60 tab 11/25/19 Unknown Rx metoprolol tartrate 50 mg PO BID 30 Days #60 tab 11/25/19 Unknown Rx potassium chloride 20 meq PO BID 30 Days #60 tab 11/25/19 Unknown Rx levothyroxine 25 mcg tablet 25 mcg PO DAILY #90 tab 12/04/19 Unknown Rx Allergies Allergy/AdvReac Type Severity Reaction Status Date / Time meperidine [From Demerol] Allergy Unknown Verified 11/20/19 10:56 PFSH Acute PFSH: Medical History CAD (coronary artery disease) High risk medication use History of CVA (cerebrovascular accident) Hypertension Mitral valve regurgitation Obstructive sleep apnea Pelvic fracture Pneumothorax Severe mitral regurgitation Thoracic spine fracture Surgical History History of back surgery Family History Other CAD (coronary artery disease) Social History (Updated 12/10/19 @ 05:11 by Lino Jeffery MD) Smoking and tobacco status: never smoked Alcohol intake: never Substance/Drug Use: never Household members: family Housing: House Vitals/I&O/Wt Last Vital Signs Temp 97.8 F 12/10/19 01:57 Pulse 66 12/10/19 04:14 Resp 14 12/10/19 04:14 BP 89/58 12/10/19 04:14 Pulse Ox 94 12/10/19 04:14 Weight last 48 hrs Weight 66.224 kg Physical Exam Narrative: EXAM NARRATIVE: Head to toe examination When I entered the room patient had his eyes closed, drooling of saliva noted, he was obtunded Shallow breaths noted Bradycardic and hypothermic (without clothes because he was being prepped for intubation) Intubation done in presence of Dr. Dang by myself Variable S1-S2 no active signs of heart failure, irregular heart rhythm on telemetry heart rate ranging between 90-1 10 PRVC PEEP 5, tidal volume 400 FiO2 40% Clinically does not look fluid overloaded Neurological exam not assessed, however has small pupil not reactive to light(as per the granddaughter he took Dilaudid before coming to the hospital) Lower extremity no signs of edema Chauhan catheter draining clear yellow urine Bilateral assist breath sounds Data : 12/10/19 01:30 12/10/19 01:30 A&P Assessment and plan (1) Acute hypercapnic respiratory failure: Status: Acute (2) Endotracheally intubated: Status: Acute (3) Myxedema coma: Status: Acute (4) Hyperkalemia: Status: Acute (5) Acute on chronic diastolic (congestive) heart failure: Status: Acute (6) Atrial fibrillation with RVR: Status: Acute Additional A&P Information Myxedema coma Criteria met with altered mental status, hypo-tension, bradycardia, hypoventilation High TSH Requested free T4 Patient intubated by myself in the ER First dose of levothyroxine 100 mcg along hydrocortisone 100 mg given in the ER After the dose his bradycardia improved currently his heart rate fluctuating between 90-1 10, irregular heart rhythm Blood pressure 111/70 which improved as compared to at the time of admission I have updated his granddaughter regarding potential risk and complications of giving IV levothyroxine currently benefits outweigh the risk Hold amiodarone Acute hypercapnic respiratory failure due to hypoventilation [facility] Will obtain blood gas in 30mins Chest ray is showing chronic changes with passive congestion I do not see signs of severe primary edema Clinically he looks dry Will advance his endotracheal tube, it is right at the level of clavicle, however he saturating well Chronic diastolic congestive heart failure Would avoid Lasix for now because of hypotension Hyperkalemia We will give him a dose of Kayexalate, calcium gluconate and insulin with D50 Change secondary to potassium supplements A. fib paroxysmal with RVR His bradycardia improved after levothyroxine dose Hold amiodarone and beta-omid I would continue his Eliquis, orogastric tube placed in the ER DVT prophylaxis not needed, continue Eliquis Full code Family updated Patient carries guarded prognosis Attestations Medical Necessity Statement*: Anticipating stay in the hospital cross more than 2 midnights carries guarded prognosis currently needing ICU for myxedema coma, intubated for hypercapnic respiratory failure Time Spent in Patient Care: (>than 50% of time spent in counselling and/or direct pt care on unit). 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
[2019-12-10 04:20] LABS: Add Urine Microscopic? NO
[2019-12-10] MEDS: hydrocortisone 100 mg/2 mL SDV IVP (04:24)
[2019-12-10] MEDS: naloxone 0.4 mg/ml SDV IVP (04:24)
[2019-12-10 04:25] LABS: ABG PCO2 80.2 mmHg (35-45); ABG PH Result 7.27 (7.35-7.45); Arterial Blood Gas Hematocrit 38.1 % (42-52); Base Excess ABG 6.8 mmol/L (-2.0-2.0); Blood Gas Allen Test Pos; Blood Gas Sample Site Radial, left; Blood Gas Sample Type Arterial; HCO3 ABG 36.5 mmol/L (22-26); PO2 ABG 90.5 mmHg (80.0-100.0)
[2019-12-10 04:33] LABS: Bilirubin Urine Neg (NEGATIVE); Blood Urine Neg (Negative); Glucose Urine UA Norm (Normal); Ketones Urine Negative (Negative); Leukocyte Esterase Urine Negative (Negative); Nitrate Urine Negative (Negative); Protein Urine Neg (Negative); Specific Gravity, Urine 1.005 (1.005-1.030); Urine Appearance Clear (CLEAR); Urine Color Yellow (Yellow); Urobilinogen Urine 1 mg/dL (Negative); pH Urine 7 (5-7)
[2019-12-10] MEDS: rocuronium 10 mg/mL INJ 5mL 40 MG IV (04:41)
[2019-12-10] MEDS: midazolam 1 mg/mL INJ 2 mL 2 MG IVP (04:46)
--- NOTE | 2019-12-10 04:52 | XRR_ITS ---
PROCEDURE INFORMATION: Exam: XR Chest, 1 View Exam date and time: 12/10/2019 5:27 AM Age: 74 years old Clinical indication: Device placement; Other: Et/og placement; Prior surgery; Surgery date: 6+ months; Surgery type: Lumbar surgery; Patient HX: Afib; Additional info: Et tube/og tube placement TECHNIQUE: Imaging protocol: XR of the chest Views: 1 view. COMPARISON: CR XR chest 1V portable [id number] 12/10/2019 2:32 AM FINDINGS: Tubes, catheters and devices: An endotracheal tube is present, terminating approximately 7 cm above the [place], at the level of the clavicular heads. A nasogastric tube is seen terminating within the stomach. Lungs: Unremarkable. No consolidation. Pleural space: Unremarkable. No pleural effusion. No pneumothorax. Heart/Mediastinum: The cardiac silhouette is mildly enlarged, likely due to underlying cardiomegaly. Vasculature: Atherosclerotic calcifications are noted within the aortic arch. Bones/joints: Bone mineralization is decreased, suggestive of osteopenia. Several old left-sided rib fractures are noted. XR/XR chest 1V portable [id number] IMPRESSION: 1. An endotracheal tube is present, terminating approximately 7 cm above the [place], at the level of the clavicular heads. 2. A nasogastric tube is seen terminating within the stomach.
[2019-12-10 04:56] LABS: Free T4 Free Thyroxine 1.26 ng/dL (0.82-1.77); T3 Free 1.3 PG/ML (2.0-4.4)
[2019-12-10] MEDS: propofol 1,000 MG/100 ML INJ 2 MG IV (04:59)
[2019-12-10] MEDS: levothyroxine 100 mcg SDV IVP (05:01)
[2019-12-10 05:10] LABS: Cortisol Random 56.79 ug/mL (2.47-19.5)
--- NOTE | 2019-12-10 05:26 | PC.NURSE ---
tried to call report for patient but waiting on room to be unoccupied for patient to be transferred to ICU. nurse will call back for report
[2019-12-10 06:14] LABS: ABG PCO2 49.3 mmHg (35-45); ABG PH Result 7.46 (7.35-7.45); Arterial Blood Gas Hematocrit 39.7 % (42-52); Base Excess ABG 9.6 mmol/L (-2.0-2.0); Blood Gas Sample Site Brachial, right; Blood Gas Sample Type Arterial; Blood Gas Tidal Volume 0.4; HCO3 ABG 34.9 mmol/L (22-26); Oxygen Device VENT
[2019-12-10] MEDS: fentaNYL 50 mcg/mL INJ 2mL 100 MCG IVP (06:38)
[2019-12-10] MEDS: sodium chloride 0.9% 250 ML IV (06:39)
--- NOTE | 2019-12-10 07:51 | ECG_ITS ---
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 Measurements Intervals [place] Rate: 69 P: SC: -1 QRS: -44 QRSD: 108 T: 29 QT: 414 QTc: 445 Interpretive Statements ATRIAL FIBRILLATION MARKED LEFT AXIS DEVIATION [QRS AXIS < -30] Compared to ECG 12/10/2019 02:52:40 Left-axis deviation now present Left anterior fascicular block no longer present Myocardial infarct finding no longer present Electronically Signed On 12-10-2019 16:55:32 CDT by Glenn Vieira M.D. [email or web address] [email or web address]/[id number]
[2019-12-10] MEDS: sodium polystyrene sulfonate 15 gm/60 mL Btl 30 GM PR (08:38)
[2019-12-10] MEDS: calcium gluconate 0.1 gm/mL 10% SDV 10mL 1 GM IVP (08:40)
[2019-12-10] MEDS: dextrose 50% syringe 50 mL 25 ML IVP (08:40)
[2019-12-10] MEDS: insulin regular-human 100 units/1 mL 10 UNIT IVP (08:43)
[2019-12-10] MEDS: apixaban 5 mg Tablet PO (09:02)
--- NOTE | 2019-12-10 09:59 | CTR_ITS ---
PROCEDURE INFORMATION: Exam: CT Chest With Contrast Exam date and time: 12/10/2019 1:12 PM Age: 74 years old Clinical indication: Patient HX: Shortness of breath, post intubation; Additional info: SOB, intubated TECHNIQUE: Imaging protocol: Computed tomography of the chest with intravenous contrast. Radiation optimization: All CT scans at this facility use at least one of these dose optimization techniques: automated exposure control; mA and/or kV adjustment per patient size (includes targeted exams where dose is matched to clinical indication); or iterative reconstruction. Contrast material: OMNI 300; Contrast volume: 95 ml; Contrast route: INTRAVENOUS (IV); COMPARISON: No relevant prior studies available. RADIATION DOSE METRICS: Total DLP (mGy-cm): 741.2 FINDINGS: Tubes, catheters and devices: The endotracheal tube terminates 3.2 cm above the [place], in satisfactory position. Lungs: Dependent atelectasis is present within both lungs. There is no focal consolidation. Pleural space: Unremarkable. No pneumothorax. No pleural effusion. Heart: The heart is moderately enlarged. Extensive calcification of the mitral annulus and aortic valve is present. Coronary artery calcifications are also noted. There is no significant pericardial effusion. Aorta: Unremarkable. No aortic aneurysm. Lymph nodes: Unremarkable. No enlarged lymph nodes. Diaphragm: Elevation of the right hemidiaphragm is noted. Bones/joints: Bone mineralization is decreased, suggestive of osteoporosis. Multiple chronic left-sided rib fractures are noted. Several chronic posteromedial right rib fractures are also present. Soft tissues: Unremarkable. IMPRESSION: 1. No acute abnormality. 2. Chronic findings as discussed above. PROCEDURE INFORMATION: Exam: CT Abdomen And Pelvis With Contrast Exam date and time: 12/10/2019 1:12 PM Age: 74 years old Clinical indication: Patient HX: Shortness of breath, post intubation; Additional info: SOB, intubated TECHNIQUE: Imaging protocol: Computed tomography of the abdomen and pelvis with intravenous contrast. Radiation optimization: All CT scans at this facility use at least one of these dose optimization techniques: automated exposure control; mA and/or kV adjustment per patient size (includes targeted exams where dose is matched to clinical indication); or iterative reconstruction. Contrast material: OMNI 300; Contrast volume: 95 ml; Contrast route: INTRAVENOUS (IV); COMPARISON: No relevant prior studies available. RADIATION DOSE METRICS: Total DLP (mGy-cm): 741.24 FINDINGS: Tubes, catheters and devices: A nasogastric tube terminates in the 2nd portion of the duodenum. Liver: Calcifications are noted in the liver, likely due to old granulomatous disease. Gallbladder and bile ducts: Normal. No calcified stones. No ductal dilation. Pancreas: Numerous small calcifications are present in the pancreas, likely due to chronic pancreatitis. The pancreas is atrophic. No peripancreatic inflammation is seen to suggest acute pancreatitis. Spleen: Calcifications are noted in the spleen, likely due to old granulomatous disease. Adrenals: Normal. No mass. Kidneys and ureters: There is a 17 mm hypodense lesion in the mid left kidney. This is too small to characterize, but could represent a cyst. The right kidney is within normal limits. There is no hydronephrosis. Stomach and bowel: There is no evidence of a small-bowel obstruction. Colonic diverticulosis is present. There is no definite evidence of acute diverticulitis. Moderate stool is noted throughout the colon. Appendix: The appendix is not seen. However, there is no significant inflammation in the right lower quadrant to suggest appendicitis. Intraperitoneal space: A small amount of free fluid is noted in the left upper quadrant and left paracolic gutter. Vasculature: Atherosclerotic calcifications are noted within the aorta and its branches. Lymph nodes: Unremarkable. No enlarged lymph nodes. Bladder: The bladder is decompressed around a Chauhan catheter. Nonspecific bladder wall thickening is present. Reproductive: The prostate gland is mildly enlarged. Bones/joints: Evaluation of the pelvis is limited due to spray artifact from a right hip arthroplasty. Chronic bilateral inferior pubic rami fractures are noted. Chronic compression fractures are present at T10, T12, and L2. Mild vertebral body height loss is present at these levels. Posterior pedicle screw and honey fixation is noted at T12 through L4. Soft tissues: Unremarkable. CT/CT chest abd pel w con* IMPRESSION: 1. A nasogastric tube terminates in the 2nd portion of the duodenum. 2. Small amount of free fluid in the left upper quadrant of uncertain etiology 3. Chronic findings as discussed above. Radiation Dose CTDIVOL = (mGy): DLP = 741.24~741.2 (mGy-cm)
[2019-12-10] MEDS: dexmedetomidine 400 MCG in sodium chloride 0.9% (100 ml) 100 ML 17.2 MCG IV ×2 (10:53→16:33)
[2019-12-10] MEDS: pantoprazole 40 mg SDV IVP ×2 (11:31→22:57)
[2019-12-10 11:51] LABS: Procalcitonin 0.05 ng/mL (0-0.5)
[2019-12-10 12:48] LABS: Glucose Point of Care 141 mg/dL (70-110)
--- NOTE | 2019-12-10 12:53 | PC.NURSE ---
0730 recd from e.r. on vent. 8.0 e.t. at 27cm at lip
[2019-12-10] MEDS: iohexol 300 mg/mL 100 mL Btl IV (13:49)
[2019-12-10] MEDS: ipratropium-albuterol 3 mL Neb INHALATION ×2 (14:26→20:06)
--- NOTE | 2019-12-10 14:36 | PM.PN ---
Subjective Subjective: Interval history: Admitted overnight. H&P and labs noted. On further discussion with Ms. Ferreira, she states patient has been getting confused, weak, lethargic for around a week. He is been complaining of mild shortness of breath along with nausea for last 2 days. He has been getting more confused for last 3 to 4 days. On evaluation today patient is on ventilator, PRVC, tidal volume 400, rest rate 14, PEEP of 5, FiO2 40% with heart rate of around 80 bpm, irregular, blood pressure systolic 80 with mean arterial pressure of 45. During my evaluation sedation monitor changed. 30 minutes after changing the sedation patient's blood pressure had improved with mean arterial pressure of 74. Vitals/I&O/Wt Last Vital Signs Temp 98.1 F 12/10/19 12:15 Pulse 70 12/10/19 14:30 Resp 17 12/10/19 14:27 BP 112/77 12/10/19 13:00 Pulse Ox 96 12/10/19 14:27 12/09/19 12/10/19 12/10/19 22:59 06:59 14:59 Intake Total 6.667 / 6.667 77.480 / 77.480 Output Total 1600 / 1600 Balance 6.667 / 6.667 -1522.520 / -1522.520 Weight last 48 hrs Weight 66.224 kg Physical Exam Narrative: EXAM NARRATIVE: General: Sedated, not arousable HEENT: PERRLA, pupils bilaterally equal and reactive Chest: Normal vesicular breath sounds, no added sounds, equal good air entry bilaterally CVS: S1-S2 irregularly irregular, pansystolic murmur at apex, 3 x 6, midsystolic click heard, no gallops, no rubs Abdomen: Soft, nontender, no organomegaly, bowel sounds present Neuro: GCS: E1 M1 VT Urinary Catheter Management^: Chauhan: Cath Placed During This Visit: yes Reason for Continuing Indwelling Catheter: Accurate Measurement of Urinary Output in Critically Ill Patients Urinary Catheter Date of Insertion: 12/10/19 Urinary Catheter Time of Insertion: 04:55 Data : 12/10/19 01:30 12/10/19 01:30 Micro: Microbiology 12/10/19 07:20 Gram Stain - Final Sputum - Expectorated Sputum A&P Assessment and plan (1) Acute hypercapnic respiratory failure: Status: Acute (2) Endotracheally intubated: Status: Acute (3) Altered mental status: Status: Acute (4) Myxedema coma: Status: Acute (5) Hyponatremia: Status: Acute (6) Low blood pressure: Status: Acute Qualifiers: Hypotension type: hypotension due to drug Qualified Code(s): I95.2 - Hypotension due to drugs (7) Atrial fibrillation with RVR: Status: Acute (8) Severe mitral regurgitation: Status: Acute (9) Acute on chronic diastolic (congestive) heart failure: Status: Acute (10) Hyperkalemia: Status: Acute Additional A&P Information 74-year-old man with past medical history of severe MR, mitral valve prolapse with recent admission for CHF and atrial fibrillation presented to the ER on December 08 with increasing confusion, altered mental status and was intubated as he was not able to protect his airway and his blood gas showed acute hypercapnia. Acute hypercapnic respiratory failure: Patient intubated. Most likely because of altered mental status. No infiltrate seen on chest x-ray. Patient has remained afebrile since admission. Check procalcitonin, CT chest abdomen pelvis with IV contrast to rule out infiltrate. We will hold off on antibiotics for now. Check sputum culture with Gram stain. Start patient on albuterol as needed, DuoNeb's every 6 hours, budesonide twice daily. Altered mental status: Most likely because of myxedema coma along with acute hyponatremia. Myxedema coma: Criteria met with altered mental status, hypo-tension, bradycardia, hypoventilation TSH high but T4 normal, borderline low T3. Cortisol level high. Cortisol level was checked after patient had received 100 mg of Solu-Cortef in the ER. As patient is hypotensive for now we will start patient on Solu-Cortef 50 every 8 hourly for at least next 24 hours. Continue with IV levothyroxine 100 mcg daily for now. Will follow daily TSH, T3, T4. We will continue to monitor for arrhythmias. As patient will be on Solu-Cortef we will check insulin sliding scale every 6 hour. Hyponatremia: Sodium 131. Baseline sodium levels to 139. Because of his history of CHF along with severe MR we will try to avoid IV fluids. We will start him on 3% normal saline 100 cc every 6 hours as needed. We will check BMP every 6 hours for now to avoid fast correction. We will replete 3% normal saline according to the sodium levels. Low blood pressures: Most likely because of myxedema coma. Also added to factor is the sedation. Stop propofol will start patient on fentanyl and Precedex. Sedation vacation. Keep mean artery pressure was 65 mmHg. We will try to wean off Levophed accordingly. Chronic diastolic congestive heart failure: Last echocardiogram in November 2019 showed an EF of 64% with possibly severe MR which was possibly directed, moderately increased LA size, mildly increased right atrial size. A. fib paroxysmal with RVR: Continue to hold off on beta-blockers. We will start patient on amiodarone from tomorrow morning. Continue with Eliquis for anticoagulation. DVT prophylaxis not needed, continue Eliquis Full code Patient's next of kin, POA his Ms. Ferreira was updated regarding patient's condition. All the questions were answered. She states for now patient would be full code but would not have wanted prolonged life support. We did discuss that if patient does not improve in the next 48 hours further goals of care will be discussed. 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
[2019-12-10 14:58] LABS: Blood Urea Nitrogen 16 mg/dL (8-23); Calcium 9.4 mg/dL (8.5-10.5); Carbon Dioxide 31 mmol/L (22-29); Chloride 91 mmol/L (98-107); Glucose 120 mg/dL (65-115); Osmolality Calculated 274 mOsm/kg (285-295); Sodium 133 mmol/L (136-145)
--- NOTE | 2019-12-10 15:06 | PC.NURSE ---
pt. admitted with watch and dentures, upper and lower.
[2019-12-10 17:23] LABS: Glucose Point of Care 122 mg/dL (70-110)
[2019-12-10] MEDS: apixaban 5 mg Tablet OG-TUBE (17:32)
[2019-12-10 17:55] LABS: Anion Gap 15.2 (5-19); Blood Urea Nitrogen 17 mg/dL (8-23); Calcium 9.4 mg/dL (8.5-10.5); Carbon Dioxide 31 mmol/L (22-29); Chloride 92 mmol/L (98-107); Glucose 121 mg/dL (65-115); Osmolality Calculated 276 mOsm/kg (285-295); Potassium 4.2 mmol/L (3.5-5.1); Sodium 134 mmol/L (136-145)
--- NOTE | 2019-12-10 18:00 | PC.NURSE ---
note some movement when hand is touched. unable to hear so difficult to assess loc. fentanyl at 40 and precedex at 0.5.
--- NOTE | 2019-12-10 20:02 | PC.NURSE ---
per previous shift to give PRN 3% sodium chloride per request. Lab values reviewed. previous lab draw of sodium level 134. call to and notified of previous lab result. instructed to hold fluids until redraw at 2255.
[2019-12-10 23:02] LABS: Anion Gap 15.1 (5-19); Blood Urea Nitrogen 15 mg/dL (8-23); Calcium 9.3 mg/dL (8.5-10.5); Carbon Dioxide 32 mmol/L (22-29); Chloride 91 mmol/L (98-107); Glucose 144 mg/dL (65-115); Osmolality Calculated 277 mOsm/kg (285-295); Potassium 4.1 mmol/L (3.5-5.1); Sodium 134 mmol/L (136-145)
[2019-12-10 23:05] LABS: Glucose Point of Care 155 mg/dL (70-110)
[2019-12-11] VITALS (60 sets, daily range): BP systolic 82–119; BP diastolic 53–84; PULSE 67–121; RESP 12–23; TEMP 36.8–37.3; O2SAT 84–99
[2019-12-11] MEDS: ipratropium-albuterol 3 mL Neb INHALATION ×4 (03:08→20:40)
[2019-12-11] MEDS: dexmedetomidine 400 MCG in sodium chloride 0.9% (100 ml) 100 ML 5.2 MCG IV (03:31)
[2019-12-11 03:58] LABS: Basophils % 0.1 %; Hematocrit 36.2 % (42.0-52.0); Hemoglobin 12.3 g/dL (11.7-16.6); Mean Corpuscular Hemoglobin 31.6 pg (28.0-34.0); Mean Corpuscular Volume 93.1 fL (80-94); Mean Platelet Volume 11.8 fL (7.4-10.4); Monocytes # 0.9 10^3/uL (0.2-0.9); Monocytes % 9.8 %; Neutrophils # 7.2 10^3/uL (1.8-7.7); Neutrophils % 78.7 %; Nucleated Red Blood Cells % 0 %; Platelet Count 141 10^3/cmm (130-400); Red Blood Count 3.89 10^6/uL (4.1-5.3); Red Cell Distribution Width 14.3 % (12.1-15.1); White Blood Count 9.2 10^3/uL (4.0-10.0)
[2019-12-11 04:26] LABS: Alanine Aminotransferase 56 U/L (0-41); Albumin Level 3.5 g/dL (3.5-5.2); Alkaline Phosphatase 106 IU/L (40-130); Anion Gap 16.7 (5-19); Aspartate Amino Transferase 29 U/L (0-40); Blood Urea Nitrogen 19 mg/dL (8-23); Calcium 9.1 mg/dL (8.5-10.5); Carbon Dioxide 31 mmol/L (22-29); Chloride 92 mmol/L (98-107); Glucose 110 mg/dL (65-115); Osmolality Calculated 279 mOsm/kg (285-295); Potassium 3.7 mmol/L (3.5-5.1); Sodium 136 mmol/L (136-145); Total Bilirubin 0.5 mg/dL (0.15-1.2); Total Protein 5.5 g/dL (6.6-8.7)
[2019-12-11 04:56] LABS: Free T4 Free Thyroxine 1.49 ng/dL (0.82-1.77); Thyroid Stimulating Hormone 2.32 uIU/mL (0.27-4.20)
[2019-12-11 04:59] LABS: ABG PCO2 41.5 mmHg (35-45); ABG PH Result 7.52 (7.35-7.45); Arterial Blood Gas Hematocrit 40.3 % (42-52); Blood Gas Sample Site Brachial, left; Blood Gas Sample Type Arterial; HCO3 ABG 33.9 mmol/L (22-26); Oxygen Device VENT; PO2 ABG 86.8 mmHg (80.0-100.0)
[2019-12-11 05:40] LABS: Glucose Point of Care 143 mg/dL (70-110)
[2019-12-11 07:50] LABS: T3 Free 0.9 PG/ML (2.0-4.4)
--- NOTE | 2019-12-11 08:00 | PC.NURSE ---
Pt resting in bed. Used communication board to introduce myself and other nurse. Pt requested pillow under feet, and had no other requests-except if he could have tube removed.
[2019-12-11 08:28] LABS: Anion Gap 15.7 (5-19); Blood Urea Nitrogen 17 mg/dL (8-23); Calcium 9.2 mg/dL (8.5-10.5); Carbon Dioxide 33 mmol/L (22-29); Chloride 92 mmol/L (98-107); Glucose 109 mg/dL (65-115); Osmolality Calculated 281 mOsm/kg (285-295); Potassium 3.7 mmol/L (3.5-5.1); Sodium 137 mmol/L (136-145)
[2019-12-11] MEDS: levothyroxine 100 mcg SDV IVP (09:30)
[2019-12-11] MEDS: apixaban 5 mg Tablet OG-TUBE ×2 (09:30→18:23)
[2019-12-11] MEDS: amiodarone 200 mg Tablet OG-TUBE (09:30)
[2019-12-11] MEDS: pantoprazole 40 mg SDV IVP ×2 (09:51→23:01)
--- NOTE | 2019-12-11 12:05 | PM.PN ---
Subjective Subjective: Interval history: No acute events overnight. Overnight patient has remained ventilated on the same settings. Vitals, lab, ABG noted. Patient was seen multiple times during the day. Off sedation patient is a lot more awake, is able to follow simple commands and able to communicate via writing. Patient was put on the pressure support for around 2 hours which he tolerated well and his sedation was gradually weaned off. Patient was successfully extubated at around 3:30 PM. Vitals/I&O/Wt Last Vital Signs Temp 99.2 F 12/11/19 06:30 Pulse 74 12/11/19 08:19 Resp 12 12/11/19 11:21 BP 102/62 12/11/19 08:00 Pulse Ox 95 12/11/19 08:17 12/10/19 12/11/19 12/11/19 22:59 06:59 14:59 Intake Total 97.467 / 174.947 159.628 / 334.575 Output Total 250 / 1850 150 / 2000 150 / 150 Balance -152.533 / -1675.053 9.628 / -1665.425 -150 / -150 Weight last 48 hrs Weight 75.296 kg Weight 66.224 kg Physical Exam Narrative: EXAM NARRATIVE: General: Sedated, arousable, on arousal following simple commands, indicating through writing. HEENT: PERRLA, pupils bilaterally equal and reactive Chest: Normal vesicular breath sounds, no added sounds, equal good air entry bilaterally CVS: S1-S2 irregularly irregular, pansystolic murmur at apex, 3 x 6, midsystolic click heard, no gallops, no rubs Abdomen: Soft, nontender, no organomegaly, bowel sounds present Neuro: GCS: E3 M5 VT Urinary Catheter Management^: Chauhan: Cath Placed During This Visit: yes Reason for Continuing Indwelling Catheter: Accurate Measurement of Urinary Output in Critically Ill Patients Urinary Catheter Date of Insertion: 12/10/19 Urinary Catheter Time of Insertion: 04:55 Data : 12/11/19 03:00 12/11/19 08:05 Micro: Microbiology 12/10/19 07:20 Gram Stain - Final Sputum - Expectorated Sputum Sputum Culture - Preliminary Gram Negative Rods 12/10/19 14:21 Blood Culture - Preliminary Blood SPECIMEN COLLECTED 12/10/19 14:25 Blood Culture - Preliminary Blood SPECIMEN COLLECTED A&P Assessment and plan (1) Acute hypercapnic respiratory failure: Status: Acute (2) Endotracheally intubated: Status: Acute (3) Altered mental status: Status: Acute (4) Myxedema coma: Status: Acute (5) Hyponatremia: Status: Acute (6) Low blood pressure: Status: Acute Qualifiers: Hypotension type: hypotension due to drug Qualified Code(s): I95.2 - Hypotension due to drugs (7) Atrial fibrillation with RVR: Status: Acute (8) Severe mitral regurgitation: Status: Acute (9) Acute on chronic diastolic (congestive) heart failure: Status: Acute (10) Hyperkalemia: Status: Acute Additional A&P Information 74-year-old man with past medical history of severe MR, mitral valve prolapse with recent admission for CHF and atrial fibrillation presented to the ER on December 08 with increasing confusion, altered mental status and was intubated as he was not able to protect his airway and his blood gas showed acute hypercapnia. Acute hypercapnic respiratory failure:Most likely because of altered mental status. No infiltrate seen on chest x-ray or CT chest. Procalcitonin negative, CT chest abdomen pelvis negative for any source of infection. Sputum culture growing gram-negative rods. Given the fact that patient was intubated we will start him on oral levofloxacin as now patient is extubated to avoid ventilator associated pneumonia. Continue with duo nebs, budesonide twice daily. Altered mental status: Most likely because of myxedema coma along with acute hyponatremia. Improving. 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 Already recieved dose of IV levothyrox today. Switch oral tab from levothyrox 100 mcg. Wean solu-medrol to 50 mg BID today. Hyponatremia: Sodium better today. At baseline. Overall got 2 doses of 3% normal saline. For now we will hold off any further 3% and will continue to monitor. Check BMP daily now. Low blood pressures: Most likely because of myxedema coma. BP better today. We will hold off on antihypertensives for now. We will start him on low-dose beta-omid and monitor his blood pressures. Keep mean artery pressure was 65 mmHg. We will try to wean off Levophed accordingly. Chronic diastolic congestive heart failure: Last echocardiogram in November 2019 showed an EF of 64% with possibly severe MR which was possibly directed, moderately increased LA size, mildly increased right atrial size. Euvolemic for now. Continue to monitor for fluid overload. At home patient takes Lasix 40 mg twice daily. For now we will continue hold off on Lasix. Overall patient is almost 2 L negative since admission. A. fib paroxysmal with RVR: Continue with home dose of amiodarone 200 mg daily. Patient takes metoprolol 50 mg twice daily at home. We will start him on metoprolol 25 mg twice daily for now. We will continue to monitor his blood pressures. Continue with Eliquis. DVT prophylaxis not needed, continue Eliquis Full code Patient's next of kin, POA his Ms. Ferreira was updated regarding patient's condition. All the questions were answered. She states for now patient would be full code but would not have wanted prolonged life support. We did discuss that now when the patient is extubated we will have to monitor him closely for fluid overload given his history of diastolic heart failure and moderate mitral regurgitation. I did explain to her that patient is still critically ill even though is extubated in next 24 hours will be important.. Patient carries guarded prognosis Attestations Medical Necessity Statement*: Myxedema coma, acute hypercapnic respiratory failure, extubated today Critical Care Time: Ventilator management, extubation Critical Care Time (min): 80 Coding Level of Care Code Acute Corrugator Helper for [facility] Diagnoses Acute hypercapnic respiratory failure J96.02 Endotracheally intubated Z97.8 Altered mental status R41.82 Myxedema coma E03.5 Hyponatremia E87.1 Low blood pressure I95.2 Hypotension type: hypotension due to drug Atrial fibrillation with RVR I48.91 Severe mitral regurgitation I34.0 Acute on chronic diastolic (congestive) heart failure I50.33 Hyperkalemia E87.5
[2019-12-11] MEDS: metoprolol tartrate 1 mg/1 mL SDV 5 mL 2.5 MG IV (14:21)
--- NOTE | 2019-12-11 15:03 | PC.NURSE ---
Pt extubated. OG removed intact. Restraints removed following. Pt tolerated well. RT at bedside.
[2019-12-11] MEDS: levoFLOXacin 750 mg Tablet PO (16:43)
--- NOTE | 2019-12-11 16:53 | PC.NURSE ---
Fentanyl gtt waste: 34.5 ml. Witnessed by Gris Quiroga RN.
--- NOTE | 2019-12-11 16:55 | PC.NURSE ---
Witnessed An Owens RN. waste 34.5mL of IV Fentanyl in med room.
--- NOTE | 2019-12-11 17:29 | PC.NURSE ---
Pt complaining of pain of a 7 on a 0-10 scale. IV Tylenol has been infused for several minutes. Offered pt to turn in bed, to which he refused and requested to lay straight in supine position. Readjusted his head and feet pillows to help try and relieve any pain.
--- NOTE | 2019-12-11 17:30 | PC.NURSE ---
Dr Heaton called unit to check on pt, updated on B/P, heart rate and breathing. Informed Dr that pt stated he was still hurting after Tylenol IV, . declined to order more pain meds due to risk for respiratory depression.
[2019-12-11 18:08] LABS: Glucose Point of Care 196 mg/dL (70-110)
[2019-12-11 18:45] LABS: Glucose Point of Care 129 mg/dL (70-110)
[2019-12-11] MEDS: metoprolol tartrate 25 mg Tablet 12.5 MG PO (18:50)
--- NOTE | 2019-12-11 19:05 | PC.NURSE ---
Pt was intubated until 1505 this afternoon. His BP has ran around the 80-90's systolic and 50-60's diastolic. Before extubation, his HR was running high from 150-170's, IV metropolol given. After HR stabilized, pt was extubated with RT at bedside and is now on 4L NC currently. Pt has complained of pain in his left leg/hip, lower abdomen, and head. IV Tylenol was given and was unable to address the pain. Pt has been offered repositioning frequently but, he wants to remain in a straight position. Around 1800 ordered his Metoprolol dose to be decreased to 12.5mg instead of the 25mg. Pt NPO except for meds. Pt to have speech eval in the morning. Pt has had difficulty with swallowing.
--- NOTE | 2019-12-11 19:37 | PC.NURSE ---
patient complaining of pain in his left hip, abdomen and head. dayshift gave IV Tylenol with no help with pain. call out to to inform him of patients pain. home meds gone over with Dr. Jeffery. Gabapentin ordered per
[2019-12-11] MEDS: gabapentin 100 mg Capsule 200 MG PO (20:04)
[2019-12-11] MEDS: budesonide 0.5 mg/2 mL Neb INHALATION (20:40)
[2019-12-11] MEDS: dexmedetomidine 400 MCG in sodium chloride 0.9% (100 ml) 100 ML IV (23:10)
[2019-12-11 23:11] LABS: Glucose Point of Care 107 mg/dL (70-110)
[2019-12-12] VITALS (38 sets, daily range): BP systolic 76–119; BP diastolic 52–84; PULSE 83–140; RESP 17–33; TEMP 36.6–37.1; O2SAT 90–99
[2019-12-12] MEDS: morphine IR 15 mg Tablet PO (01:40)
[2019-12-12] MEDS: ipratropium-albuterol 3 mL Neb INHALATION ×4 (02:42→20:20)
[2019-12-12] MEDS: fixodent 39 gm Tube 1 APPLIC DENTAL (04:06)
[2019-12-12 05:16] LABS: Free T4 Free Thyroxine 1.54 ng/dL (0.82-1.77); T3 Free 0.7 PG/ML (2.0-4.4); Thyroid Stimulating Hormone 2.79 uIU/mL (0.27-4.20)
[2019-12-12 05:42] LABS: Glucose Point of Care 150 mg/dL (70-110)
[2019-12-12] MEDS: levoFLOXacin 750 mg Tablet PO (06:10)
[2019-12-12] MEDS: metoprolol tartrate 25 mg Tablet 12.5 MG PO ×2 (06:11→18:12)
[2019-12-12] MEDS: budesonide 0.5 mg/2 mL Neb INHALATION ×2 (09:16→20:20)
[2019-12-12] MEDS: gabapentin 100 mg Capsule 200 MG PO ×3 (09:55→21:26)
[2019-12-12] MEDS: apixaban 5 mg Tablet OG-TUBE (09:55)
[2019-12-12] MEDS: amiodarone 200 mg Tablet OG-TUBE (09:55)
[2019-12-12] MEDS: pantoprazole 40 mg SDV IVP ×2 (10:02→21:30)
--- NOTE | 2019-12-12 10:15 | PM.PN ---
Subjective Subjective: Interval history: No acute event overnight. Last 24 hours patient was extubated successfully. Overnight he has maintained his saturation. Labs and vitals noted. On examination patient sitting comfortably in chair for last 2 hours as per the nurse. Patient is tired now. He is AO x3 and is able to communicate by writing. Vitals/I&O/Wt Last Vital Signs Temp 98.8 F 12/12/19 07:00 Pulse 102 H 12/12/19 09:20 Resp 20 H 12/12/19 09:17 BP 98/56 12/12/19 07:00 Pulse Ox 94 12/12/19 09:17 12/11/19 12/12/19 12/12/19 22:59 06:59 14:59 Intake Total 55.2 / 172.880 45.050 / 217.930 Output Total 475 / 875 225 / 1100 Balance -419.8 / -702.120 -179.950 / -882.070 Weight last 48 hrs Weight 74.843 kg Weight 75.296 kg Physical Exam Narrative: EXAM NARRATIVE: General: AAOx3, No acute distress, HEENT: PERRLA, pupils bilaterally equal and reactive Chest: Normal vesicular breath sounds, b/l decreased air entry in lower zone, fine crackles in lower zones, equal good air entry bilaterally CVS: S1-S2 irregularly irregular, pansystolic murmur at apex, 3 x 6, midsystolic click heard, no gallops, no rubs Abdomen: Soft, nontender, no organomegaly, bowel sounds present Neuro: GCS: Power b/l in 4 x 5 in all limbs, no facial deformity, no slurred speech, legally deaf Urinary Catheter Management^: Chauhan: Cath Placed During This Visit: yes Reason for Continuing Indwelling Catheter: Accurate Measurement of Urinary Output in Critically Ill Patients Urinary Catheter Date of Insertion: 12/10/19 Urinary Catheter Time of Insertion: 04:55 Data : 12/12/19 03:53 12/12/19 03:53 Micro: Microbiology 12/10/19 07:20 Gram Stain - Final Sputum - Expectorated Sputum Sputum Culture - Preliminary Enterobacter aerogenes 12/10/19 14:25 Blood Culture - Preliminary Blood NEGATIVE TO DATE 12/10/19 14:21 Blood Culture - Preliminary Blood NEGATIVE TO DATE 12/10/19 13:25 MRSA Culture - Final Nose A&P Assessment and plan (1) Acute hypercapnic respiratory failure: Status: Acute (2) Endotracheally intubated: Status: Acute (3) Altered mental status: Status: Acute (4) Myxedema coma: Status: Acute (5) Hyponatremia: Status: Acute (6) Low blood pressure: Status: Acute Qualifiers: Hypotension type: hypotension due to drug Qualified Code(s): I95.2 - Hypotension due to drugs (7) Atrial fibrillation with RVR: Status: Acute (8) Severe mitral regurgitation: Status: Acute (9) Acute on chronic diastolic (congestive) heart failure: Status: Acute (10) Hyperkalemia: Status: Acute (11) Deaf: Status: Acute Additional A&P Information 74-year-old man with past medical history of severe MR, mitral valve prolapse with recent admission for CHF and atrial fibrillation presented to the ER on December 08 with increasing confusion, altered mental status and was intubated as he was not able to protect his airway and his blood gas showed acute hypercapnia. Acute hypercapnic respiratory failure: Extubated December 10:Most likely because of altered mental status. No infiltrate seen on chest x-ray or CT chest. Procalcitonin negative, CT chest abdomen pelvis negative for any source of infection. Sputum culture growing patient has remained afebrile, procalcitonin negative, white count within normal limits but because he was intubated and extubated yesterday we will continue levofloxacin for now. Will finish a 5-day course. Day 2 today. Continue with duo nebs, budesonide twice daily. Altered mental status: Most likely because of myxedema coma along with acute hyponatremia. Improving. 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 Continue levothyroxine 100 mcg daily. We will continue with Solu-medrol to 50 mg BID today. Wean tomorrow Hyponatremia: Sodium better today. At baseline. Overall got 2 doses of 3% normal saline. For now we will hold off any further 3% and will continue to monitor. Check BMP daily now. Keep mean artery pressure was 65 MAG Chronic diastolic congestive heart failure: Last echocardiogram in November 2019 showed an EF of 64% with possibly severe MR which was possibly directed, moderately increased LA size, mildly increased right atrial size. We will start patient on Lasix 40 mg daily today which is her home dose. Watch for fluid overload. Seems borderline euvolemic for now. A. fib paroxysmal with RVR: Overnight blood pressures have been borderline and heart rate have been borderline tachycardic as well. We will continue with amiodarone at home dose. Cannot give the home dose of metoprolol because of borderline blood pressures. For now we will continue with Lopressor 12.5 twice daily. Given his renal functions and borderline blood pressures we will start him on a digoxin load. 500 mcg IV stat followed by 125 every 6 hours for 2 doses. Continue with Eliquis. DVT prophylaxis not needed, continue Eliquis Full code Updated patient's Ms. Ferreira and spoke to patient as well regarding his condition. Discussed goals of care going further. Both patient and patient's state given his multiple comorbidities it would be best if patient is DNR/DNI. CODE STATUS has been changed. For safe discharge discussed with . She states he does have continued home health for now. They would like to know if he goes to alf which alf it would be and if there would be any visitation allowed. Patient carries guarded prognosis Attestations Medical Necessity Statement*: Altered mental status, myxedema coma, hyponatremia, hypoxic respiratory failure, atrial fibrillation Time Spent in Patient Care: Greater than 35 minutes (>than 50% of time spent in counselling and/or direct pt care on unit). Coding Level of Care Code Acute Bankruptcy Judge for [facility] Diagnoses Acute hypercapnic respiratory failure J96.02 Endotracheally intubated Z97.8 Altered mental status R41.82 Myxedema coma E03.5 Hyponatremia E87.1 Low blood pressure I95.2 Hypotension type: hypotension due to drug Atrial fibrillation with RVR I48.91 Severe mitral regurgitation I34.0 Acute on chronic diastolic (congestive) heart failure I50.33 Hyperkalemia E87.5 Deaf H91.90
[2019-12-12] MEDS: digoxin 250 mcg/ml INJ 2 mL 500 MCG IVP (10:37)
[2019-12-12] MEDS: levothyroxine 100 mcg Tablet PO (10:37)
[2019-12-12] MEDS: FUROsemide 40 mg Tablet PO (10:37)
[2019-12-12 10:51] LABS: Hematocrit 36.2 % (42.0-52.0); Hemoglobin 12.3 g/dL (11.7-16.6); Lymphocytes # 1.1 10^3/uL (0.8-4.8); Lymphocytes % 11.6 %; Mean Corpuscular Volume 94.3 fL (80-94); Monocytes # 0.7 10^3/uL (0.2-0.9); Monocytes % 7.9 %; Neutrophils # 7.5 10^3/uL (1.8-7.7); Neutrophils % 80.1 %; Nucleated Red Blood Cells % 0 %; Platelet Count 148 10^3/cmm (130-400); Red Blood Count 3.84 10^6/uL (4.1-5.3); Red Cell Distribution Width 14.5 % (12.1-15.1); White Blood Count 9.4 10^3/uL (4.0-10.0)
[2019-12-12 11:05] LABS: Alanine Aminotransferase 51 U/L (0-41); Albumin Level 3.2 g/dL (3.5-5.2); Alkaline Phosphatase 101 IU/L (40-130); Anion Gap 19.2 (5-19); Aspartate Amino Transferase 29 U/L (0-40); Blood Urea Nitrogen 19 mg/dL (8-23); Calcium 8.9 mg/dL (8.5-10.5); Carbon Dioxide 29 mmol/L (22-29); Chloride 89 mmol/L (98-107); Globulin 2.2 g/dL (1.3-4.6); Glucose 116 mg/dL (65-115); Osmolality Calculated 275 mOsm/kg (285-295); Potassium 3.2 mmol/L (3.5-5.1); Sodium 134 mmol/L (136-145); Total Bilirubin 0.6 mg/dL (0.15-1.2); Total Protein 5.4 g/dL (6.6-8.7)
[2019-12-12 11:49] LABS: Glucose Point of Care 116 mg/dL (70-110)
[2019-12-12] MEDS: digoxin 250 mcg/ml INJ 2 mL 125 MCG IVP ×2 (14:21→21:26)
[2019-12-12 17:05] LABS: Glucose Point of Care 99 mg/dL (70-110)
[2019-12-12] MEDS: apixaban 5 mg Tablet PO (18:11)
[2019-12-12 23:19] LABS: Glucose Point of Care 154 mg/dL (70-110)
[2019-12-12] MEDS: polyethylene glycol 3350 Pkt 17 gm PO (23:28)
[2019-12-13] VITALS (27 sets, daily range): BP systolic 100–137; BP diastolic 59–95; PULSE 75–115; RESP 17–32; TEMP 36.6–37.2; O2SAT 90–100
[2019-12-13] MEDS: ipratropium-albuterol 3 mL Neb INHALATION ×4 (02:26→20:07)
[2019-12-13 05:12] LABS: Hematocrit 36.7 % (42.0-52.0); Hemoglobin 12.9 g/dL (11.7-16.6); Lymphocytes # 0.8 10^3/uL (0.8-4.8); Lymphocytes % 9.7 %; Mean Corpuscular HGB Conc 35.1 g/dL (30.0-36.0); Mean Corpuscular Hemoglobin 32.3 pg (28.0-34.0); Mean Platelet Volume 11.4 fL (7.4-10.4); Monocytes # 0.8 10^3/uL (0.2-0.9); Monocytes % 9.9 %; Neutrophils # 6.8 10^3/uL (1.8-7.7); Neutrophils % 79.7 %; Nucleated Red Blood Cells % 0 %; Platelet Count 160 10^3/cmm (130-400); Red Blood Count 3.99 10^6/uL (4.1-5.3); Red Cell Distribution Width 14.2 % (12.1-15.1); White Blood Count 8.5 10^3/uL (4.0-10.0)
[2019-12-13 05:37] LABS: T3 Free 1.1 PG/ML (2.0-4.4); Thyroid Stimulating Hormone 5.24 uIU/mL (0.27-4.20)
[2019-12-13 05:39] LABS: Alanine Aminotransferase 45 U/L (0-41); Albumin Level 3.3 g/dL (3.5-5.2); Alkaline Phosphatase 95 IU/L (40-130); Aspartate Amino Transferase 28 U/L (0-40); Blood Urea Nitrogen 18 mg/dL (8-23); Calcium 8.6 mg/dL (8.5-10.5); Carbon Dioxide 31 mmol/L (22-29); Chloride 91 mmol/L (98-107); Globulin 2.1 g/dL (1.3-4.6); Glucose 115 mg/dL (65-115); Osmolality Calculated 279 mOsm/kg (285-295); Sodium 136 mmol/L (136-145); Total Bilirubin 0.8 mg/dL (0.15-1.2); Total Protein 5.4 g/dL (6.6-8.7)
[2019-12-13] MEDS: metoprolol tartrate 25 mg Tablet 12.5 MG PO ×2 (06:08→11:31)
[2019-12-13] MEDS: levoFLOXacin 750 mg Tablet PO (06:08)
[2019-12-13 07:56] LABS: Glucose Point of Care 132 mg/dL (70-110)
[2019-12-13] MEDS: budesonide 0.5 mg/2 mL Neb INHALATION ×2 (08:20→20:07)
[2019-12-13] MEDS: baclofen 10 mg Tablet PO (08:39)
[2019-12-13] MEDS: efferdent effervescent 1 EACH DENTAL (08:39)
[2019-12-13] MEDS: FUROsemide 40 mg Tablet PO (08:40)
[2019-12-13] MEDS: levothyroxine 100 mcg Tablet PO ×2 (08:41→11:31)
[2019-12-13] MEDS: gabapentin 100 mg Capsule 200 MG PO ×3 (08:41→20:24)
[2019-12-13] MEDS: sennosides-docusate Tablet 1 TAB PO (08:41)
[2019-12-13] MEDS: apixaban 5 mg Tablet PO ×2 (08:41→15:36)
[2019-12-13] MEDS: polyethylene glycol 3350 Pkt 17 gm PO (08:41)
[2019-12-13] MEDS: amiodarone 200 mg Tablet PO (08:41)
[2019-12-13] MEDS: pantoprazole 40 mg SDV IVP ×2 (08:45→21:54)
--- NOTE | 2019-12-13 11:17 | PC.SOCIAL ---
IMM was completed with pt on 12/13/2019 @ 9438.
[2019-12-13] MEDS: potassium chloride oral liq 20 mEq/15 mL UDC 40 MEQ PO (11:30)
[2019-12-13] MEDS: potassium chloride ER 10 mEq Tablet 40 MEQ PO (11:31)
[2019-12-13 12:03] LABS: Glucose Point of Care 194 mg/dL (70-110)
[2019-12-13 16:23] LABS: Glucose Point of Care 123 mg/dL (70-110)
[2019-12-13 16:48] LABS: Glucose Point of Care 112 mg/dL (70-110)
[2019-12-13] MEDS: metoprolol tartrate 25 mg Tablet PO (17:07)
--- NOTE | 2019-12-13 17:28 | PC.NURSE ---
patient had one large and one small bm so he refused his pm senna and miralax for the morning. he stood with min assist to standing position but found it difficult to stand straight up and walk without a hr elevation to 130 and and a sat drop to 91. recovery was prompt. he ate well at each meal even when he said he was not hungry. he got a shave per his request.
--- NOTE | 2019-12-13 18:28 | PM.PN ---
Subjective Subjective: Interval history: No acute events overnight. Patient doing a lot better today morning. He is awake alert and able to have complete conversation through writing on the board. He is complaining of pain in his legs. He states that has been going on for a long time. He states his breathing and cough are at its baseline. Examination sitting comfortably in bed. Labs and vitals noted. Vitals/I&O/Wt Last Vital Signs Temp 98.2 F 12/13/19 18:01 Pulse 89 12/13/19 18:01 Resp 27 H 12/13/19 18:01 BP 108/65 12/13/19 18:01 Pulse Ox 92 12/13/19 18:01 12/13/19 12/13/19 12/13/19 06:59 14:59 22:59 Intake Total 30 / 983.453 650 / 650 200 / 850 Output Total 450 / 1250 800 / 800 Balance -420 / -266.547 -150 / -150 200 / 50 Weight last 48 hrs Weight 75.614 kg Weight 74.843 kg Physical Exam Narrative: EXAM NARRATIVE: General: AAOx3, No acute distress, HEENT: PERRLA, pupils bilaterally equal and reactive Chest: Normal vesicular breath sounds, b/l decreased air entry in lower zone, fine crackles in lower zones, equal good air entry bilaterally CVS: S1-S2 irregularly irregular, pansystolic murmur at apex, 3 x 6, midsystolic click heard, no gallops, no rubs Abdomen: Soft, nontender, no organomegaly, bowel sounds present Neuro: GCS: Power b/l in 4 x 5 in all limbs, no facial deformity, no slurred speech, legally deaf Urinary Catheter Management^: Chauhan: Cath Placed During This Visit: yes Reason for Continuing Indwelling Catheter: Accurate Measurement of Urinary Output in Critically Ill Patients Urinary Catheter Date of Insertion: 12/10/19 Urinary Catheter Time of Insertion: 04:55 Data : 12/13/19 04:15 12/13/19 04:15 Micro: Microbiology 12/10/19 07:20 Gram Stain - Final Sputum - Expectorated Sputum Sputum Culture - Final Enterobacter aerogenes A&P Assessment and plan (1) Acute hypercapnic respiratory failure: Status: Acute (2) Endotracheally intubated: Status: Acute (3) Altered mental status: Status: Acute (4) Myxedema coma: Status: Acute (5) Hyponatremia: Status: Acute (6) Low blood pressure: Status: Acute Qualifiers: Hypotension type: hypotension due to drug Qualified Code(s): I95.2 - Hypotension due to drugs (7) Atrial fibrillation with RVR: Status: Acute (8) Severe mitral regurgitation: Status: Acute (9) Acute on chronic diastolic (congestive) heart failure: Status: Acute (10) Hyperkalemia: Status: Acute (11) Deaf: Status: Acute Additional A&P Information 74-year-old man with past medical history of severe MR, mitral valve prolapse with recent admission for CHF and atrial fibrillation presented to the ER on December 08 with increasing confusion, altered mental status and was intubated as he was not able to protect his airway and his blood gas showed acute hypercapnia. Acute hypercapnic respiratory failure: Extubated December 10:Most likely because of altered mental status. No infiltrate seen on chest x-ray or CT chest. Procalcitonin negative, CT chest abdomen pelvis negative for any source of infection. Sputum culture growing patient has remained afebrile, procalcitonin negative, white count within normal limits but because he was recently intubated, we will continue levofloxacin for now. Will finish a 5-day course. Day 3 today. Continue with duo nebs, budesonide twice daily. Altered mental status: Most likely because of myxedema coma along with acute hyponatremia. Improving. 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 TSH mildly elevated today. We will increase the dose of levothyroxine to 200 mcg daily. Wean Solu-Medrol to 50 mg daily. Hyponatremia: Sodium better today. At baseline. Overall got 2 doses of 3% normal saline. For now we will hold off any further 3% and will continue to monitor. Check BMP daily now. Keep mean artery pressure was 65 mmHg. Chronic diastolic congestive heart failure: Last echocardiogram in November 2019 showed an EF of 64% with possibly severe MR which was possibly directed, moderately increased LA size, mildly increased right atrial size. Continue Lasix 40 mg daily. Overall patient 2.6 L negative. A. fib paroxysmal with RVR: Overnight blood pressures have been borderline and heart rate have been borderline tachycardic as well. We will continue with amiodarone at home dose. Patient got digoxin load yesterday since then his heart rate is well maintained. Blood pressures better. We will increase the Lopressor to 25 mg twice daily today. We will try to keep increasing Lopressor to home dose depending on his blood pressure. Continue with Eliquis. DVT prophylaxis not needed, continue Eliquis Limited resuscitation to ACLS medication. No chest compressions or intubation. Patient's and daughter having multiple questions regarding discharge planning. They are unsure as would want the to come home but states will not be able to take care of patient on her own and is requesting for how long and how many times a week over the base and home health come in. She is also requesting to know if patient goes to SNF what the visitation allowances are right now. Moved to [facility] today. Attestations Medical Necessity Statement*: Altered mental status, myxedema coma, hyponatremia Time Spent in Patient Care: Greater than 35 minutes (>than 50% of time spent in counselling and/or direct pt care on unit). Coding Level of Care Code Acute Thermodynamic Physicist for Jeffrey Stanley Diagnoses Acute hypercapnic respiratory failure J96.02 Endotracheally intubated Z97.8 Altered mental status R41.82 Myxedema coma E03.5 Hyponatremia E87.1 Low blood pressure I95.2 Hypotension type: hypotension due to drug Atrial fibrillation with RVR I48.91 Severe mitral regurgitation I34.0 Acute on chronic diastolic (congestive) heart failure I50.33 Hyperkalemia E87.5 Deaf H91.90
--- NOTE | 2019-12-13 20:30 | PC.NURSE ---
Received report from [facility] [place]. Pt resting comfortably in bed with no complaints. See nursing assessment.
[2019-12-13 23:05] LABS: Glucose Point of Care 124 mg/dL (70-110)
[2019-12-14] VITALS (15 sets, daily range): BP systolic 103–131; BP diastolic 69–79; PULSE 75–102; RESP 14–28; TEMP 36.5–36.8; O2SAT 90–97
[2019-12-14] MEDS: ipratropium-albuterol 3 mL Neb INHALATION ×4 (03:53→20:56)
[2019-12-14 04:31] LABS: Eosinophils % 0.1 %; Hematocrit 36.6 % (42.0-52.0); Hemoglobin 12.5 g/dL (11.7-16.6); Lymphocytes # 2.3 10^3/uL (0.8-4.8); Lymphocytes % 23.2 %; Mean Corpuscular HGB Conc 34.2 g/dL (30.0-36.0); Mean Corpuscular Hemoglobin 32.6 pg (28.0-34.0); Mean Corpuscular Volume 95.6 fL (80-94); Mean Platelet Volume 11.6 fL (7.4-10.4); Monocytes # 1.2 10^3/uL (0.2-0.9); Monocytes % 12.5 %; Neutrophils # 6.2 10^3/uL (1.8-7.7); Neutrophils % 63.5 %; Nucleated Red Blood Cells % 0 %; Platelet Count 156 10^3/cmm (130-400); Red Blood Count 3.83 10^6/uL (4.1-5.3); Red Cell Distribution Width 14.6 % (12.1-15.1); White Blood Count 9.8 10^3/uL (4.0-10.0)
[2019-12-14 04:51] LABS: Alanine Aminotransferase 42 U/L (0-41); Albumin Level 3.1 g/dL (3.5-5.2); Alkaline Phosphatase 85 IU/L (40-130); Aspartate Amino Transferase 24 U/L (0-40); Blood Urea Nitrogen 16 mg/dL (8-23); Calcium 8.6 mg/dL (8.5-10.5); Carbon Dioxide 31 mmol/L (22-29); Chloride 98 mmol/L (98-107); Glucose 93 mg/dL (65-115); Osmolality Calculated 280 mOsm/kg (285-295); Sodium 137 mmol/L (136-145); Total Bilirubin 0.6 mg/dL (0.15-1.2); Total Protein 5.1 g/dL (6.6-8.7)
[2019-12-14] MEDS: levoFLOXacin 750 mg Tablet PO (05:23)
[2019-12-14] MEDS: metoprolol tartrate 25 mg Tablet PO ×2 (05:23→17:06)
[2019-12-14 05:36] LABS: Thyroid Stimulating Hormone 8.68 uIU/mL (0.27-4.20)
[2019-12-14 06:40] LABS: Glucose Point of Care 85 mg/dL (70-110)
[2019-12-14 06:40] LABS: Glucose Point of Care 84 mg/dL (70-110)
[2019-12-14] MEDS: FUROsemide 40 mg Tablet PO (07:33)
[2019-12-14] MEDS: budesonide 0.5 mg/2 mL Neb INHALATION ×2 (09:07→20:56)
[2019-12-14] MEDS: levothyroxine 100 mcg Tablet 200 MCG PO (09:09)
[2019-12-14] MEDS: sennosides-docusate Tablet 1 TAB PO ×2 (09:09→17:06)
[2019-12-14] MEDS: amiodarone 200 mg Tablet PO (09:09)
[2019-12-14] MEDS: apixaban 5 mg Tablet PO ×2 (09:09→17:07)
[2019-12-14] MEDS: gabapentin 100 mg Capsule 200 MG PO ×3 (09:09→20:09)
[2019-12-14] MEDS: polyethylene glycol 3350 Pkt 17 gm PO (09:09)
[2019-12-14 10:43] LABS: Glucose Point of Care 170 mg/dL (70-110)
[2019-12-14 10:43] LABS: Glucose Point of Care 108 mg/dL (70-110)
--- NOTE | 2019-12-14 11:12 | P.PN_ITS ---
Subjective Subjective: Interval history: No acute events overnight in last 24 hours patient was transferred to the floors. He has remained hemodynamically stable. Afebrile. Examination patient is working well with physical therapy. He denies of any nausea, vomiting, headache, palpitations. Labs and vitals noted. Vitals/I&O/Wt Last Vital Signs Temp 97.9 F 12/14/19 04:00 Pulse 78 12/14/19 09:07 Resp 16 12/14/19 09:07 BP 110/78 12/14/19 08:00 Pulse Ox 96 12/14/19 09:07 12/13/19 12/14/19 12/14/19 22:59 06:59 14:59 Intake Total 200 / 850 100 / 950 360 / 360 Output Total 700 / 1500 Balance 200 / 50 -600 / -550 360 / 360 Weight last 48 hrs Weight 77.973 kg Weight 75.614 kg Physical Exam Narrative: EXAM NARRATIVE: General: AAOx3, No acute distress, HEENT: PERRLA, pupils bilaterally equal and reactive Chest: Normal vesicular breath sounds, b/l decreased air entry in lower zone, fine crackles in lower zones, equal good air entry bilaterally CVS: S1-S2 irregularly irregular, pansystolic murmur at apex, 3 x 6, midsystolic click heard, no gallops, no rubs Abdomen: Soft, nontender, no organomegaly, bowel sounds present Neuro: Power b/l in 4 x 5 in all limbs, no facial deformity, no slurred speech, legally deaf Urinary Catheter Management^: Chauhan: Cath Placed During This Visit: yes Reason for Continuing Indwelling Catheter: Accurate Measurement of Urinary Output in Critically Ill Patients Urinary Catheter Date of Insertion: 12/10/19 Urinary Catheter Time of Insertion: 04:55 Data : 12/14/19 03:51 12/14/19 03:51 Micro: Microbiology 12/10/19 07:20 Gram Stain - Final Sputum - Expectorated Sputum Sputum Culture - Final Enterobacter aerogenes A&P Assessment and plan (1) Acute hypercapnic respiratory failure: Status: Acute (2) Endotracheally intubated: Status: Acute (3) Altered mental status: Status: Acute (4) Myxedema coma: Status: Acute (5) Hyponatremia: Status: Acute (6) Low blood pressure: Status: Acute Qualifiers: Hypotension type: hypotension due to drug Qualified Code(s): I95.2 - Hypotension due to drugs (7) Atrial fibrillation with RVR: Status: Acute (8) Severe mitral regurgitation: Status: Acute (9) Acute on chronic diastolic (congestive) heart failure: Status: Acute (10) Hyperkalemia: Status: Acute (11) Deaf: Status: Acute Additional A&P Information 74-year-old man with past medical history of severe MR, mitral valve prolapse with recent admission for CHF and atrial fibrillation presented to the ER on December 08 with increasing confusion, altered mental status and was intubated as he was not able to protect his airway and his blood gas showed acute hypercapnia. Acute hypercapnic respiratory failure: Extubated December 10:Most likely because of altered mental status. No infiltrate seen on chest x-ray or CT chest. Procalcitonin negative, CT chest abdomen pelvis negative for any source of infection. Sputum culture growing Enterobacter. Patient has remained afebrile, procalcitonin negative, white count within normal limits but because he was recently intubated, we will continue levofloxacin for now. Will finish a 5-day course. Day 3 today. Continue with duo nebs, budesonide twice daily. Altered mental status: Most likely because of myxedema coma along with acute hyponatremia. Resolved. Myxedema coma: Criteria met with altered mental status, hypo-tension, bradycardia, hypoventilation Stop Solu-Medrol. Levothyroxine was changed to oral. He was getting 200 mcg daily. TSH more elevated today but T4 is also elevated and T3 is improving. Will decre ase levothyroxine to 150 mcg daily. Have discussed with the nursing staff for levothyroxine to be given separate and first thing in the morning than every other medication to facilitate absorption. Hyponatremia: Sodium better today. At baseline. Overall got 2 doses of 3% normal saline. For now we will hold off any further 3% and will continue to monitor. Check BMP daily now. Keep mean artery pressure was 65 mmHg. Chronic diastolic congestive heart failure: Last echocardiogram in November 2019 showed an EF of 64% with possibly severe MR which was possibly directed, moderately increased LA size, mildly increased right atrial size. Continue Lasix 40 mg daily. Overall patient 2.6 L negative. A. fib paroxysmal with RVR: Overnight blood pressures have been borderline and heart rate have been borderline tachycardic as well. We will continue with amiodarone at home dose. Patient got digoxin load yesterday since then his heart rate is well maintained. Blood pressures better. Continue with Lopressor 25 mg twice daily. We will try to keep increasing Lopressor to home dose depending on his blood pressure. Continue with Eliquis. DVT prophylaxis not needed, continue Eliquis Limited resuscitation to ACLS medication. No chest compressions or intubation. Discussed in detail with Ms. Ferreira and family on phone again today regarding his safe discharge planning. Ms. Ferreira states given his multiple comorbidities it would be best for patient to go to alf for some time and then come home. All the questions of family were answered in detail. Authorization from [facility] awaited. Attestations Medical Necessity Statement*: Altered mental status, myxedema coma, hyponatremia Time Spent in Patient Care: Greater than 35 minutes (>than 50% of time spent in counselling and/or direct pt care on unit) . Coding Level of Care Code Acute Insole Department Worker for [facility] Lizeth Diagnoses Acute hypercapnic respiratory failure J96.02 Endotracheally intubated Z97.8 Altered mental status R41.82 Myxedema coma E03.5 Hyponatremia E87.1 Low blood pressure I95.2 Hypotension type: hypotension due to drug Atrial fibrillation with RVR I48.91 Severe mitral regurgitation I34.0 Acute on chronic diastolic (congestive) heart failure I50.33 Hyperkalemia E87.5 Deaf H91.90
[2019-12-14] MEDS: efferdent effervescent 1 EACH DENTAL (11:25)
[2019-12-14 11:35] LABS: T3 Free 1.3 PG/ML (2.0-4.4)
[2019-12-14 16:41] LABS: Glucose Point of Care 167 mg/dL (70-110)
[2019-12-14] MEDS: pantoprazole DR 40 mg Tablet PO (17:06)
[2019-12-14] MEDS: baclofen 10 mg Tablet PO (19:49)
--- NOTE | 2019-12-14 20:30 | PC.NURSE ---
Received report from [facility] [place]. Pt resting in bed. See nursing assessment.
[2019-12-14 20:51] LABS: Glucose Point of Care 120 mg/dL (70-110)
[2019-12-15] VITALS (12 sets, daily range): BP systolic 111–133; BP diastolic 72–77; PULSE 77–100; RESP 16–26; TEMP 36.4–36.8; O2SAT 90–98
[2019-12-15 00:05] LABS: Glucose Point of Care 118 mg/dL (70-110)
[2019-12-15] MEDS: ipratropium-albuterol 3 mL Neb INHALATION ×2 (03:40→08:35)
[2019-12-15] MEDS: metoprolol tartrate 25 mg Tablet PO (05:01)
[2019-12-15 05:12] LABS: Glucose Point of Care 90 mg/dL (70-110)
--- NOTE | 2019-12-15 05:18 | PC.NURSE ---
PO dilaudid given at 2200 for neck pain 12/20. Pt sleeping at 2225 when reassessed. Dilaudid given again at 0429 for neck pain 12/20. Pt 6/10 at 0458 when reassessed.
[2019-12-15 05:50] LABS: Free T4 Free Thyroxine 1.95 ng/dL (0.82-1.77); T3 Free 1.1 PG/ML (2.0-4.4)
[2019-12-15] MEDS: levothyroxine 150 mcg Tablet PO ×2 (05:55→09:27)
--- NOTE | 2019-12-15 06:01 | PC.NURSE ---
Pt already medicated for pain.
[2019-12-15] MEDS: budesonide 0.5 mg/2 mL Neb INHALATION (08:35)
[2019-12-15] MEDS: sennosides-docusate Tablet 1 TAB PO (09:27)
[2019-12-15] MEDS: pantoprazole DR 40 mg Tablet PO (09:27)
[2019-12-15] MEDS: polyethylene glycol 3350 Pkt 17 gm PO (09:27)
[2019-12-15] MEDS: gabapentin 100 mg Capsule 200 MG PO (09:27)
[2019-12-15] MEDS: FUROsemide 40 mg Tablet PO (09:28)
[2019-12-15] MEDS: amiodarone 200 mg Tablet PO (09:28)
[2019-12-15] MEDS: apixaban 5 mg Tablet PO (09:30)
--- NOTE | 2019-12-15 09:32 | PC.SOCIAL ---
IMM Updated Updated pt on Pg 2 IMM. Pt verbally understands. Copy provided to pt. Signed, dated, & timed copy in chart.
[2019-12-15] MEDS: levoFLOXacin 750 mg Tablet PO (10:17)
--- NOTE | 2019-12-15 10:30 | PC.NURSE ---
Call placed to patient's to provide update on condition and transfer plans.
--- NOTE | 2019-12-15 10:48 | P.DS_ITS ---
Discharge Providers Date of Admission: 12/10/19 04:32 Date of Discharge: December 15, 2019 Attending Provider at Admission: Lino Jeffery MD Attending Provider at Discharge: Trev Kelly MD Primary Care Provider: Joss Huddleston MD Diagnoses at Discharge Discharge Diagnosis (1) Acute hypercapnic respiratory failure: Status: Acute (2) Endotracheally intubated: Status: Acute (3) Altered mental status: Status: Acute (4) Myxedema coma: Status: Acute (5) Hyponatremia: Status: Acute (6) Low blood pressure: Status: Acute Qualifiers: Hypotension type: hypotension due to drug Qualified Code(s): I95.2 - Hypotension due to drugs (7) Atrial fibrillation with RVR: Status: Acute (8) Severe mitral regurgitation: Status: Acute (9) Acute on chronic diastolic (congestive) heart failure: Status: Acute (10) Hyperkalemia: Status: Acute (11) Deaf: Status: Acute Reason for Visit Reason for Visit: afib Hospital Course Discharge Summary: Parminder العراقي is a 74 year old male past medical history of severe mitral regurgitation, deafness, hypertension, coronary disease, GERD, chronic anticoagulation for A. fib with Eliquis, was brought in by the family for extreme lethargy. Granddaughter is at the bedside who is endorsing that for last few days he has been more lethargic, he has been sleeping all day, his communication which he normally does by writing on the board has decreased, his functional status has declined significantly. Daughter is at the bedside who is endorsing that he just started levothyroxine 1 week ago when he was seen at Dr. Salazar's clinic at that point his amiodarone dose was decreased to 200 mg. At home he communicates via writing on a board. Lately he has been complaining ab out shortness of breath at rest and on exertion, granddaughter noticed that he he was constipated, lethargic, confused. He was compliant with his medications. No fever was noticed at home. Today because of worsening shortness of breath he was brought to the ER. In the ER on arrival he was able to communicate via writing but within few minutes his mentation changed in his breathing became shallow, blood gas showed worsening of respiratory acidosis, he was bradycardic, hypotensive, TSH 10. On admission patient was not maintaining her airway so was intubated in the ER. Patient was admitted to the ICU. For myxedema coma patient was started on IV levothyroxine along with IV steroids which were tapered off. His altered mental status and drowsiness is also thought to be because of acute hyponatremia which was treated with 3% normal saline to which he responded well and his sodiums are back to within normal limits in 24 hours. Eventually as patient was improving he was extubated on December 11, 2019. Post extubation patient did well. His hospital stay was complicated by A. fib with RVR for which his home dose of amiodarone was started and metoprolol was introduced gradually. He was also dig loaded. Currently he is on half the dose of metoprolol and is been doing fine. He was eventually moved to the floor and did well with physical therapy. At present patient is at baseline office mentation, oxygen requirement. Because of severe deconditioning, advanced age, multiple comorbidities safe discharge were discussed with the family and it was decided would be best if patient goes to SNF for some time for rehabilitation. Patient is been discharged hemodynamically stable condition saturating 96% on room air on the day of discharge. His levothyroxine dose has been adjusted. Advised to check TSH, free T3, free T4 in 1 week. Patient is advised to follow-up with his primary care provider and Dr. Salazar who is his outpatient senior product analyst within next 7 to 10 days. Physical Exam Narrative: EXAM NARRATIVE: General: AAOx3, No acute distress, HEENT: PERRLA, pupils bilaterally equal and reactive Chest: Normal vesicular breath sounds, b/l decreased air entry in lower zone, fine crackles in lower zones, equal good air entry bilaterally CVS: S1-S2 irregularly irregular, pansystolic murmur at apex, 3 x 6, midsystolic click heard, no gallops, no rubs Abdomen: Soft, nontender, no organomegaly, bowel sounds present Neuro: Power b/l in 4 x 5 in all limbs, no facial deformity, no slurred speech, legally deaf Urinary Catheter Management^: Chauhan: Cath Placed During This Visit: yes, but has since been removed by the nurse Reason for Continuing Indwelling Catheter: Accurate Measurement of Urinary Output in Critically Ill Patients Urinary Catheter Date of Insertion: 12/10/19 Urinary Catheter Time of Insertion: 04:55 Date Urinary Catheter Removed: 12/14/19 Time Urinary Catheter Discontinued: 13:00 Discharge Data Data Completed and Pending: Completed Studies During Hospitalization Category Date Time Status CT chest abd pel w con* Routine Cat Scan 12/10/19 09:[address] head wo con* 7 0450 Urgent Cat Scan 12/10/19 02:08 Completed XR chest 1V amy ble [id number] Stat Exams 12/10/19 04:52 Completed XR chest 1V amy ble [id number] Urgent Exams 12/10/19 01:51 Completed Pending at discharge Category Date Time Status Blood Culture Sta t Lab 12/10/19 14:21 Results Free T4 Free Thyr oxine AM LABS Lab 12/16/19 04:00 Ordered Free T4 Free Thyr oxine AM LABS Lab 12/17/19 04:00 Ordered T3 Free AM LABS Lab 12/16/19 04:00 Ordered T3 Free AM LABS Lab 12/17/19 04:00 Ordered Thyroid Stimulati ng Hormone AM LABS Lab 12/16/19 04:00 Ordered Labs from last 24 hours 12/15/19 12/15/19 12/15/19 05:03 04:05 00:00 O2 Delivery Device POC Glucose 90 118 TSH 5.40 H Free T4 1.95 H Free T3 1.1 L 12/14/19 12/14/19 12/14/19 20:27 16:35 03:51 O2 Delivery Device POC Glucose 120 167 TSH Free T4 1.80 H Free T3 1.3 L 12/10/19 04:11 O2 Delivery Device Not Reportable POC Glucose TSH Free T4 Free T3 Vitals: Last Vital Signs Temp 97.8 F 12/15/19 04:00 Pulse 90 12/15/19 08:46 Resp 20 H 12/15/19 08:35 BP 111/77 12/15/19 04:00 Pulse Ox 96 12/15/19 08:35 Discharge Plan Discharge Patient Disposition: Xfer SNF Condition: Stable Prescriptions: New levothyroxine 150 mcg Tablet 150 mcg PO DAILY Qty: 30 RF: 0 metoprolol tartrate 25 mg Tablet 25 mg PO Q12H Qty: 60 RF: 0 Continued sucralfate 1 gram tablet 1 g PO QID RF: 0 pravastatin 80 mg tablet 80 mg PO DAILY RF: 0 tamsulosin 0.4 mg capsule 0.8 mg PO DAILY RF: 0 dicyclomine 20 mg tablet 20 mg PO QID RF: 0 baclofen 10 mg tablet 10 mg PO TID PRN (Reason: Pain) RF: 0 pantoprazole 40 mg tablet,delayed release (DR/EC) 40 mg PO BID RF: 0 trazodone 150 mg tablet 150 mg PO BEDTIME RF: 0 gabapentin 300 mg capsule 300 mg PO BID RF: 0 aspirin 81 mg Tablet,Chewable 81 mg PO DAILY RF: 0 montelukast 10 mg tablet 10 mg PO DAILY RF: 0 hydromorphone 4 mg tablet 4 mg PO TID PRN (Reason: Pain) RF: 0 Symbicort 160-4.5 mcg/actuation HFA aerosol inhaler 2 puff INHALATION BID RF: 0 Linzess 145 mcg Capsule 145 mcg PO DAILY RF: 0 Eliquis 5 mg Tablet 5 mg PO BID 30 Days Qty: 60 RF: 0 potassium chloride 20 mEq tablet extended release 20 meq PO BID 30 Days Qty: 60 RF: 0 Changed furosemide 40 mg Tablet 40 mg PO DAILY 30 Days Qty: 60 RF: 0 cetirizine 10 mg tablet 10 mg PO DAILY PRN (Reason: allergy) Qty: 0 RF: 0 Pacerone 200 mg Tablet 200 mg PO DAILY 30 Days Qty: 30 RF: 0 Colace 100 mg Capsule 100 mg PO BID PRN (Reason: constipation) Qty: 0 RF: 0 Discontinued levothyroxine 25 mcg tablet 25 mcg PO DAILY Qty: 90 RF: 3 metoprolol tartrate 50 mg Tablet 50 mg PO BID 30 Days Qty: 60 RF: 0 Discharge Orders: Discharge Order (Routine); Ordered 12/15/19 Ordered By: Trev Kelly Referrals: Charley Salazar MD [Physician] - 7-10 days Joss Huddleston MD [Primary Care Provider] - 7-10 days Discharge Diet: Cardiac and Soft Mechanical Discharge Activity: Increase activity as tolerated and As per PT/OT instructions Patient Instructions: Atrial Fibrillation, Metoprolol (By mouth), Levothyroxine (By mouth), Hyperkalemia, Mitral Regurgitation (DC), Acute Respiratory Distress Syndrome (DC), Hearing Loss (DC), Hyponatremia (DC), Hyperkalemia (DC), Myxedema Coma (DC), Hypotension (DC), Altered Mental Status (GEN), Endotracheal Tube (GEN), CHF Stoplight Activity Restrictions/Additional Instructions: Please follow-up with your primary care provider and Dr. Salazar in a week to 10 days. Please check TSH, free T3, free T4 in a week. Discharge Attestations Time Spent in Discharge Care*: greater than 30 min Specific Discharge Activities: Specific discharge activities: educating patient, educating and/or supporting family/caregiver, discussing with telephonic case manager/social workers/dc planners, documenting/other paperwork and evaluating patient/reviewing data Status at Discharge: Cognitive status at discharge: cognitively intact , Behavioral status at discharge: cooperative , Functional status at discharge: other assisted ambulation Overall status at discharge: patient is back to baseline Quality Metrics Clinical Quality Measures During this hospital stay, did patient experience: None Coding Level of Care Code Acute Watch Inspector for [facility] Diagnoses Acute hypercapnic respiratory failure J96.02 Endotracheally intubated Z97.8 Altered mental status R41.82 Myxedema coma E03.5 Hyponatremia E87.1 Low blood pressure I95.2 Hypotension type: hypotension due to drug Atrial fibrillation with RVR I48.91 Severe mitral regurgitation I34.0 Acute on chronic diastolic (congestive) heart failure I50.33 Hyperkalemia E87.5 Deaf H91.90
[2019-12-15 11:51] LABS: Glucose Point of Care 109 mg/dL (70-110)
== END 2019-12-15 14:15 | disposition skilled nursing facility (03) | DRG 208 ==
LOC: ER 03:34 → ICU 06:08 → CSU 12-13 17:22
PROVIDERS: Emergency Medicine; Physician Assistant; Admitting Provider Internal Medicine; PCP Family Medicine; Visit Provider Student in an Organized Health Care Education/Training Program
DX: J96.02 Acute respiratory failure with hypercapnia (principal); I50.33 Acute on chronic diastolic (congestive) heart failure; E03.5 Myxedema coma; E87.1 Hypo-osmolality and hyponatremia; I34.0 Nonrheumatic mitral (valve) insufficiency; E87.5 Hyperkalemia; H91.3 Deaf nonspeaking, not elsewhere classified; I95.2 Hypotension due to drugs; I25.10 Atherosclerotic heart disease of native coronary artery without angina pectoris; K21.9 Gastro-esophageal reflux disease without esophagitis; Z79.01 Long term (current) use of anticoagulants; Z79.82 Long term (current) use of aspirin; I48.0 Paroxysmal atrial fibrillation; Z86.73 Personal history of transient ischemic attack (TIA), and cerebral infarction without residual deficits; G47.33 Obstructive sleep apnea (adult) (pediatric)
CPT/HCPCS: 12345; 36415; 36416; 36600; 51702; 70450; 71045; 71260; 74177; 80048; 80053; 81003; 82533; 82803; 82962; 83605; 83880; 84145; 84439; 84443; 84481; 84484; 85025; 87040; 87070; 87077; 87186; 87205; 87641; 92523; 92610; 93005; 94002; 94003; 94640; 94799; 96372; 96375; 97110; 97116; 97162; 97530; 99284; C9113; J0131; J0610; J1160; J1720; J1815; J1940; J2250; J2310; J2704; J2920; J3010; J3490; J7050; J7626; Q9967

== ENCOUNTER → 2019-12-27 10:20 | Outpatient (BNVA) | payer OTHER, MEDICARE, SELFPAY | PROVIDERS: PCP Family Medicine; Visit Provider Internal Medicine Cardiovascular Disease | DX: I50.33 Acute on chronic diastolic (congestive) heart failure (principal); E87.1 Hypo-osmolality and hyponatremia; E87.5 Hyperkalemia; J96.01 Acute respiratory failure with hypoxia; Z86.73 Personal history of transient ischemic attack (TIA), and cerebral infarction without residual deficits; I25.10 Atherosclerotic heart disease of native coronary artery without angina pectoris; I34.0 Nonrheumatic mitral (valve) insufficiency; I48.91 Unspecified atrial fibrillation; G47.33 Obstructive sleep apnea (adult) (pediatric) | CPT/HCPCS: 80048; 83880 ==